=== PATIENT | male | born 1955 | race Caucasian/White ===

== ENCOUNTER 2016-07-20 08:20 | Emergency (ER) | payer BC, OTHER ==
[~2016-07-20 08:20] MED LIST: ASPI81TA4 PO; CIPR500S PO; DELZ400C PO; LISI-538 PO; METR500T10 PO; MULT1TAB9 PO; NEXI1CAP4 PO; PERCOCET PO; PRED10TA PO; SIMV20TA2 PO
[2016-07-20] MEDS ORDERED: ACETAMINOPHEN 325 MG TAB As Ordered ONE (09:00)
[2016-07-20] MEDS ORDERED: IPRATROPIUM 0.5MG/ALBUTEROL 2.5MG INH SOL UD 3ML (DUONEB)(J7620) As Ordered ONE ×2 (09:03→11:17)
[2016-07-20 09:10] LABS: BASO % 0.4 % (0.0-1.0); EOS % 0.6 % (0.0-3.0); LARGE UNSTAINED CELL # 0.1 K/mm3 (0.0-0.4); LARGE UNSTAINED CELL % 1.3 % (0.0-4.0); LYMPH # 0.4 K/mm3 (1.5-4.5); LYMPH % 4.8 % (24.0-44.0); MEAN CORPUSCULAR HEMOGLOBIN 32.1 pg (27.0-33.0); MEAN CORPUSCULAR VOLUME 91.7 fl (80.0-96.0); MONO # 0.5 K/mm3 (0.0-0.8); MONO % 5.4 % (0.0-5.0); NEUTROPHILS # 7.4 K/mm3 (1.8-7.7); NEUTROPHILS % 87.5 % (36.0-66.0); PLATELET COUNT, AUTOMATED 216 k/mm3 (150-450); RED CELL DISTRIBUTION WIDTH 12.1 % (11.5-14.5); WHITE BLOOD COUNT 8.4 K/mm3 (4.0-10.0)
[2016-07-20 09:33] LABS: ANION GAP 11 MEQ/L (8-16); BLOOD UREA NITROGEN 10 MG/DL (7-18); CALCIUM LEVEL 8.7 MG/DL (8.8-10.2); CARBON DIOXIDE LEVEL 28 MEQ/L (21-32); CHLORIDE LEVEL 97 MEQ/L (98-107); CREATININE FOR GFR 1.17 MG/DL (0.70-1.30); GLOMERULAR FILTRATION RATE > 60.0 (>49); GLUCOSE, FASTING 123 MG/DL (80-110); SODIUM LEVEL 136 MEQ/L (136-145)
[2016-07-20] MEDS ORDERED: LevoFLOXacin/DEXTROSE 750 MG/150 ML BAG (J1956) As Ordered ONE (12:57)
--- NOTE | 2016-07-20 14:37 | EDDOCDS ---
Physician Documentation [facility] Name: Jaren Ybarra Age: 60 yrs Sex: Male : 1955 Arrival Date: 07/20/2016 Time: 08:20 Bed 1 Private MD: Jair Partida M.D. Disposition: 07/20/16 13:44 Discharged to Home/Self Care. Impression: Pneumonia due to other specified bacteria. - Condition is Stable. - Discharge Instructions: Pneumonia, Adult, Pneumonia, Adult, [id number], How to Use a Nebulizer. - Prescriptions for Levaquin 750 mg Oral Tablet - take 1 tablet by ORAL route once daily for 10 days; 10 tablet. Albuterol Sulfate 2.5 mg /3 mL (0.083 %) Inhalation Solution for Nebulization - inhale 1 unit by NEBULIZATION route 4 times per day As needed; 1 box. Home Nebulizer - Dx: (pneumonia). Duration: (3 months). Albuterol Sulfate 90 mcg/actuation Inhalation HFA Aerosol Inhaler - inhale 2 puff by INHALATION route every 4 hours As needed; 1 Inhaler. - Medication Reconciliation, Local Pharmacy Hours form. - Follow up: Jair Partida; When: Tomorrow. - Problem is new. - Symptoms have improved. Historical: - Allergies: no known allergies; - Home Meds: 1. lisinopril 40 mg Oral tab 1 tab once daily 2. Nexium 40 mg Oral cpDR 80 mg in am 40mg in pm - PMHx: Hypertension; GERD; - PSHx: Prostatectomy; left shoulder repair; - Social history: Smoking status: Patient states was never smoker of tobacco. No barriers to communication noted, The patient speaks fluent Lao, Speaks appropriately for age. - Family history: Not pertinent. - : The pt / caregiver states he / she is not on anticoagulants. Home medication list is obtained from the patient. - Exposure Risk Screening:: None identified. Vital Signs: 07/20 08:31 BP 145 / 86; Pulse 110; Resp 20; Temp 101.4; Pulse Ox 97% on R/A; Weight 92.53 kg / bcj 203.99 lbs; Height 5 ft. 11 in. (180.34 cm); Pain 6/10; 09:00 BP 156 / 79 (auto/); js13 09:00 Pulse 87 MON; Resp 18; Pulse Ox 96% on R/A; js13 09:15 BP 153 / 85 (auto/); js13 09:15 Pulse 82; Resp 18; Pulse Ox 100% on R/A; js13 09:30 BP 162 / 84 (auto/); js13 09:30 Pulse 89 MON; Resp 18; Pulse Ox 97% on 4 lpm NC; js13 09:45 BP 151 / 81 (auto/); js13 09:45 Pulse 98 MON; Resp 18; Pulse Ox 97% on 4 lpm NC; js13 10:00 BP 155 / 84 (auto/); js13 10:00 Pulse 96 MON; Resp 14; Pulse Ox 97% on 4 lpm NC; js13 10:15 BP 148 / 79 (auto/); js13 10:15 Pulse 95 MON; Resp 18; Pulse Ox 95% on 4 lpm NC; js13 10:30 BP 147 / 81 (auto/); js13 10:30 Pulse 92 MON; Resp 18; Pulse Ox 95% on 4 lpm NC; js13 10:45 BP 144 / 81 (auto/); js13 10:45 Pulse 90 MON; Resp 18; Pulse Ox 97% on 4 lpm NC; js13 11:00 BP 153 / 76 (auto/); js13 11:00 Pulse 87 MON; Resp 18; Pulse Ox 91% on 4 lpm NC; js13 11:15 BP 146 / 77 (auto/); js13 11:15 Pulse 87 MON; Resp 14; Temp 99.3(O); Pulse Ox 95% on 4 lpm NC; 13 11:22 Temp 99.3(O); Pain 0/10; js13 11:30 BP 138 / 75 (auto/); js13 11:30 Pulse 94 MON; Resp 18; Pulse Ox 95% on 4 lpm NC; js13 11:45 BP 152 / 87 (auto/); js13 11:45 Pulse 93 MON; Resp 18; Pulse Ox 93% on 4 lpm NC; js13 12:00 BP 160 / 87 (auto/); js13 12:00 Pulse 93 MON; Resp 18; Pulse Ox 93% on 4 lpm NC; js13 12:15 BP 161 / 84 (auto/); js13 12:15 Pulse 95 MON; Resp 18; Pulse Ox 94% on R/A; js13 12:30 BP 146 / 74 (auto/); js13 12:30 Pulse 89 MON; Resp 18; Pulse Ox 96% on R/A; js13 12:45 BP 144 / 72 (auto/); js13 12:45 Pulse 99; Resp 18; Pulse Ox 93% on R/A; js13 13:00 BP 138 / 72 (auto/); js13 13:00 Pulse 87 MON; Resp 18; Pulse Ox 94% on R/A; js13 13:15 BP 142 / 77 (auto/); js13 13:15 Pulse 83 MON; Resp 18; Pulse Ox 93% on R/A; js13 13:30 BP 155 / 85 (auto/); js13 13:30 Pulse 89 MON; Resp 18; Pulse Ox 96% on R/A; js13 13:45 BP 146 / 79 (auto/); js13 13:45 Pulse 87 MON; Resp 18; Temp 98.7(O); Pulse Ox 94% on R/A; js13 14:00 BP 156 / 83 (auto/); js13 14:00 Pulse 87 MON; Resp 18; Pulse Ox 97% on R/A; js13 14:15 BP 163 / 87 (auto/); js13 14:15 Pulse 90 MON; Resp 18; Pulse Ox 98% on R/A; js13 14:30 BP 163 / 93 (auto/); js13 14:30 Pulse 85 MON; Resp 18; Temp 98.2(O); Pulse Ox 98% on R/A; Pain 0/10; js13 08:31 Body Mass Index 28.45 (92.53 kg, 180.34 cm) [facility] MDM: 08:41 -Blood Culture (Adults Only), peripheral from different site, or from device/port/PICC sd1 etc. if present ordered. 08:41 Business Support Associate/Pulse Ox/q 15 min VS ordered. sd1 08:41 IV Saline Lock ordered. sd1 08:41 Oxygen at 4L/Min NC or Home dosage ordered. sd1 08:41 Rhythm Strip to chart ordered. sd1 08:42 Acetaminophen Tablet 975 mg PO once ordered. sd1 08:42 B-Type Natiuretic Peptide Ordered. EDMS 08:42 Basic Metabolic Profile Ordered. EDMS 08:42 CBC with Diff Ordered. EDMS 08:42 Cardiac Injury Profile Ordered. EDMS 08:42 Troponin Ordered. EDMS 08:42 Lactic Acid (Sims tube on ice) Ordered. EDMS 08:42 -Blood Culture Ordered. EDMS 08:42 Chest, 1 View Ordered. EDMS 08:43 ECG WITH READING ER PHYS+CARDIAG ordered. EDMS 08:43 -Influenza A&B Rapid Antigen - Nose Ordered. EDMS 08:45 -Blood Culture (Adults Only), peripheral from different site, or from device/port/PICC lbd etc. if present complete. 08:47 BLOOD CULTURES Ordered. EDMS 08:53 Albuterol-Ipratropium 3 ml Inhalation once ordered. sd1 09:13 CBC with Diff Reviewed. sd1 09:29 -Influenza A&B Rapid Antigen - Nose Reviewed. sd1 09:45 Financial registration complete. mm15 10:04 [facility] Payment Agreement was scanned into [employer] and attached to record. mm15 10:31 Basic Metabolic Profile Reviewed. sd1 10:31 B-Type Natiuretic Peptide Reviewed. sd1 10:31 Cardiac Injury Profile Reviewed. sd1 10:31 Troponin Reviewed. sd1 10:31 Lactic Acid (Sims tube on ice) Reviewed. sd1 11:11 Albuterol-Ipratropium 3 ml Inhalation once ordered. sd1 11:18 Sputum Culture & Gram Stain Ordered. EDMS 12:41 Misc. Nursing Order ordered. sd1 12:41 levofloxacin 750 mg IVPB once over 90 mins ordered. sd1 13:30 Fluid Challenge ordered. sd1 Administered Medications: 09:03 Drug: Acetaminophen 975 mg [acetaminophen 325 mg tablet (3 tabs)] Route: PO; js13 11:22 Follow up: Temp 99.3 Oral; Pain 0/10 Adult; Response: Temperature is decreased js13 10:01 Drug: Albuterol-Ipratropium 3 ml [ipratropium-albuterol 0.5 mg-3 mg(2.5 mg base)/3 mL kt1 nebulization soln (3 mL)] Route: Inhalation; 11:34 Drug: Albuterol-Ipratropium 3 ml [ipratropium-albuterol 0.5 mg-3 mg(2.5 mg base)/3 mL kt1 nebulization soln (3 mL)] Route: Inhalation; 13:02 Drug: levofloxacin 750 mg [levofloxacin 750 mg/150 mL in 5 % dextrose intravenous js13 piggyback] Route: IVPB; Infused Over: 90 mins; Site: right antecubital; Signatures: Dispatcher [employer] Mary Pope MD MD sd1 Ernestine Finch, [facility] Estuardo Allen RN RN Brynn Johnson RN RN js13 Bhavin Razo mm15 Aline Henry kt1 The chart was reviewed and I authenticate all verbal orders and agree with the evaluation and treatment provided.Attachments: 10:04 [facility] Payment Agreement mm15 MTDD
--- NOTE | 2016-07-20 14:37 | EDDOCDS ---
Nurse's Notes [facility] Name: Jaren Ybarra Age: 60 yrs Sex: Male : 1955 Arrival Date: 07/20/2016 Time: 08:20 Bed 1 Private MD: Jair Partida M.D. Diagnosis: Pneumonia due to other specified bacteria Presentation: 07/20 08:28 Presenting complaint: Patient states: c/o SOB for last 2 days - worse today. states SOB bcj with activity. coughing up green / yellow sputum. + temp at home. aches all over. Suicide/Homicide risk assessment- the patient denies having any suicidal and/or homicidal ideations and does not present with any other emotional, behavioral or mental health complaints. Status: Patient is not a web services professional or dependent. Transition of care: patient was not received from another setting of care. 08:28 Acuity: DOLLY Level 3 [facility] 08:28 Method Of Arrival: Walkin/Carried/Asstd [facility] 08:55 Adult Sepsis Screening: The patient does not have new or worsening altered mentation. bcj Patient's respiratory rate is less than 22. Systolic blood pressure is greater than 100. Patient has a qSOFA score of 0- Negative Sepsis Screen. Triage Assessment: 08:31 General: Appears uncomfortable, Behavior is cooperative. Pain: Location: face and chest bcj Pain currently is 7 out of 10 on a pain scale. HIV screening NA for this visit Offered previously. Respiratory: Onset: The symptoms/episode began/occurred today. Historical: - Allergies: no known allergies; - Home Meds: 1. lisinopril 40 mg Oral tab 1 tab once daily 2. Nexium 40 mg Oral cpDR 80 mg in am 40mg in pm - PMHx: Hypertension; GERD; - PSHx: Prostatectomy; left shoulder repair; - Social history: Smoking status: Patient states was never smoker of tobacco. No barriers to communication noted, The patient speaks fluent Pashto, Speaks appropriately for age. - Family history: Not pertinent. - : The pt / caregiver states he / she is not on anticoagulants. Home medication list is obtained from the patient. - Exposure Risk Screening:: None identified. Screenin:00 Screening information is obtained from the patient. Fall risk: No risks identified. js13 Assistance ADL's: requires no assistance with activities of daily living. Abuse/DV Screen: The patient / caregiver reports he/she is: not in a situation that causes fear, pain or injury. Nutritional screening: No deficits noted. Advance Directives: There is no active DNR order. home support is adequate. Assessment: 09:19 General: Appears in no apparent distress, Behavior is appropriate for age, cooperative. js13 Pain: Location: head Pain currently is 7 out of 10 on a pain scale. Neurological: Level of Consciousness is awake, alert. Cardiovascular: Rhythm is sinus rhythm Chest pain is denied. Respiratory: Airway is patent Respiratory effort is even, unlabored, Respiratory pattern is regular, Breath sounds are diminished. Derm: Skin is pink, warm & dry. 10:33 General: Appears in no apparent distress, comfortable, Behavior is appropriate for age, js13 cooperative. Pain: Pain currently is 4 out of 10 on a pain scale. Neurological: Level of Consciousness is awake, alert. Cardiovascular: Rhythm is sinus rhythm Chest pain is denied. Respiratory: Airway is patent Respiratory effort is even, unlabored, Respiratory pattern is regular. Derm: Skin is pink, warm & dry. 11:19 Adult Sepsis Screening: The patient does not have new or worsening altered mentation. js13 Patient's respiratory rate is less than 22. Systolic blood pressure is greater than 100. Patient has a qSOFA score of 0- Negative Sepsis Screen. General: Appears in no apparent distress, Behavior is appropriate for age, cooperative. Pain: Denies pain. Neurological: Level of Consciousness is awake, alert. Cardiovascular: Rhythm is sinus rhythm Chest pain is denied. Respiratory: Airway is patent Respiratory effort is even, unlabored, Respiratory pattern is regular, Breath sounds are diminished. Derm: Skin is pink, warm & dry. 12:03 General: Appears in no apparent distress, comfortable, Behavior is appropriate for age, js13 cooperative. Pain: Denies pain. Neurological: Level of Consciousness is awake, alert. Cardiovascular: Rhythm is sinus rhythm Chest pain is denied. Respiratory: Airway is patent Respiratory effort is even, unlabored, Respiratory pattern is regular, symmetrical. Derm: Skin is pink, warm & dry. 12:58 General: Patient ambulated in hallway with no complaints. Patients O2 saturation was 95 js13 to 98% on RA.. 13:35 Adult Sepsis Screening: The patient does not have new or worsening altered mentation. js13 Patient's respiratory rate is less than 22. Systolic blood pressure is greater than 100. Patient has a qSOFA score of 0- Negative Sepsis Screen. General: Appears in no apparent distress, comfortable, Behavior is appropriate for age, cooperative, Patient tolerated PO fluids with no complaints.. Pain: Denies pain. Neurological: Level of Consciousness is awake, alert. Cardiovascular: Rhythm is sinus rhythm Chest pain is denied. Respiratory: Airway is patent Respiratory effort is even, unlabored, Respiratory pattern is regular, symmetrical, Breath sounds are diminished. Derm: Skin is pink, warm & dry. 14:34 General: Appears in no apparent distress, comfortable, Behavior is appropriate for age, js13 cooperative. Pain: Denies pain. Neurological: Level of Consciousness is awake, alert. Cardiovascular: Rhythm is sinus rhythm Chest pain is denied. Respiratory: Airway is patent Respiratory effort is even, unlabored, Respiratory pattern is regular, symmetrical, Breath sounds are diminished. Derm: Skin is pink, warm & dry. Vital Signs: 08:31 BP 145 / 86; Pulse 110; Resp 20; Temp 101.4; Pulse Ox 97% on R/A; Weight 92.53 kg; [facility] Height 5 ft. 11 in. (180.34 cm); Pain 6/10; 09:00 BP 156 / 79 (auto/); 13 09:00 Pulse 87 MON; Resp 18; Pulse Ox 96% on R/A; 13 09:15 BP 153 / 85 (auto/); 09:15 Pulse 82; Resp 18; Pulse Ox 100% on R/A; 13 09:30 BP 162 / 84 (auto/); 09:30 Pulse 89 MON; Resp 18; Pulse Ox 97% on 4 lpm NC; 13 09:45 BP 151 / 81 (auto/); 13 09:45 Pulse 98 MON; Resp 18; Pulse Ox 97% on 4 lpm NC; 13 10:00 BP 155 / 84 (auto/); 13 10:00 Pulse 96 MON; Resp 14; Pulse Ox 97% on 4 lpm NC; 13 10:15 BP 148 / 79 (auto/); 13 10:15 Pulse 95 MON; Resp 18; Pulse Ox 95% on 4 lpm NC; 13 10:30 BP 147 / 81 (auto/); 13 10:30 Pulse 92 MON; Resp 18; Pulse Ox 95% on 4 lpm NC; js13 10:45 BP 144 / 81 (auto/); js13 10:45 Pulse 90 MON; Resp 18; Pulse Ox 97% on 4 lpm NC; js13 11:00 BP 153 / 76 (auto/); js13 11:00 Pulse 87 MON; Resp 18; Pulse Ox 91% on 4 lpm NC; js13 11:15 BP 146 / 77 (auto/); js13 11:15 Pulse 87 MON; Resp 14; Temp 99.3(O); Pulse Ox 95% on 4 lpm NC; js13 11:22 Temp 99.3(O); Pain 0/10; js13 11:30 BP 138 / 75 (auto/); js13 11:30 Pulse 94 MON; Resp 18; Pulse Ox 95% on 4 lpm NC; js13 11:45 BP 152 / 87 (auto/); js13 11:45 Pulse 93 MON; Resp 18; Pulse Ox 93% on 4 lpm NC; js13 12:00 BP 160 / 87 (auto/); js13 12:00 Pulse 93 MON; Resp 18; Pulse Ox 93% on 4 lpm NC; js13 12:15 BP 161 / 84 (auto/); js13 12:15 Pulse 95 MON; Resp 18; Pulse Ox 94% on R/A; js13 12:30 BP 146 / 74 (auto/); js13 12:30 Pulse 89 MON; Resp 18; Pulse Ox 96% on R/A; js13 12:45 BP 144 / 72 (auto/); js13 12:45 Pulse 99; Resp 18; Pulse Ox 93% on R/A; js13 13:00 BP 138 / 72 (auto/); js13 13:00 Pulse 87 MON; Resp 18; Pulse Ox 94% on R/A; js13 13:15 BP 142 / 77 (auto/); js13 13:15 Pulse 83 MON; Resp 18; Pulse Ox 93% on R/A; js13 13:30 BP 155 / 85 (auto/); js13 13:30 Pulse 89 MON; Resp 18; Pulse Ox 96% on R/A; js13 13:45 BP 146 / 79 (auto/); js13 13:45 Pulse 87 MON; Resp 18; Temp 98.7(O); Pulse Ox 94% on R/A; js13 14:00 BP 156 / 83 (auto/); js13 14:00 Pulse 87 MON; Resp 18; Pulse Ox 97% on R/A; js13 14:15 BP 163 / 87 (auto/); js13 14:15 Pulse 90 MON; Resp 18; Pulse Ox 98% on R/A; js13 14:30 BP 163 / 93 (auto/); js13 14:30 Pulse 85 MON; Resp 18; Temp 98.2(O); Pulse Ox 98% on R/A; Pain 0/10; js13 08:31 Body Mass Index 28.45 (92.53 kg, 180.34 cm) [facility] Vitals: 08:31 Log In Time: July 20, 2016 at 08:20. [facility] ED Course: 08:22 Patient visited by Christopher Crouch Reg. pm4 08:22 Jair Partida is Private Physician. pm4 08:22 Patient moved to Waiting pm4 08:30 Triage Initiated [facility] 08:34 Patient visited by Estuardo Allen, HOLLY. bcj 08:39 Brynn Camilo,HOLLY is Primary Nurse. bcj 08:39 Patient moved to 1 bc 08:40 Mary Hermosillo MD is Attending Physician. sd1 08:43 Patient visited by Dina Sanchez. dem1 08:47 Patient visited by Mary Hermosillo MD. sd1 08:50 EKG done. (by ED staff). Reviewed by Mary Hermosillo MD. dem1 08:55 Patient visited by Estuardo Allen, HOLLY. j 09:00 Patient visited by Dina Sanchez. dem1 09:01 Patient visited by Dina Sanchez. dem1 09:01 Pt greeted and oriented to ED. Patient advised of names of staff involved in care, [facility] location of call leon, wait times and NPO status. Patient has correct armband on for positive identification. Placed in gown. Bed in low position. Side rails up X 1. mobile battery technician on. Pulse ox on. NIBP on. 09:03 BLOOD CULTURES Sent. 09:03 -Influenza A&B Rapid Antigen - Nose Sent. 09:03 Lactic Acid (Sims tube on ice) Sent. js13 09:03 -Blood Culture Sent. js13 09:03 B-Type Natiuretic Peptide Sent. js13 09:03 Basic Metabolic Profile Sent. 13 09:03 CBC with Diff Sent. 13 09:03 Cardiac Injury Profile Sent. 13 09:03 Troponin Sent. js13 09:20 Inserted saline lock: 18 gauge in right antecubital area and blood collected. The js13 patient tolerated the procedure well. No procedures done that require assistance. Labs drawn. (by ED staff). Sent per order to lab. Labs/Blood culture drawn. O2 via nasal cannula \T\ 4L/min. 09:21 Patient visited by Brynn Camilo RN. js13 09:56 Patient visited by Lilliana Kumar PCA. ct3 10:04 [facility] Payment Agreement was scanned into [employer] and attached to record. mm15 10:34 Patient visited by Brynn Camilo RN. js13 11:18 Sputum Culture & Gram Stain Sent. js13 11:22 Patient visited by Brynn Camilo RN. js13 12:00 The patient / caregiver is instructed regarding the plan of care and ED course. js13 12:05 Patient visited by Brynn Camilo RN. js13 12:48 Patient visited by Lilliana Kumar PCA. ct3 13:37 Patient visited by Brynn Camilo RN. js13 13:43 Jair Partida is Referral Physician. sd1 14:30 Discontinued IV lock intact, bleeding controlled, pressure dressing applied, No js13 redness/swelling at site. Administered Medications: 09:03 Drug: Acetaminophen 975 mg [acetaminophen 325 mg tablet (3 tabs)] Route: PO; 13 11:22 Follow up: Temp 99.3 Oral; Pain 0/10 Adult; Response: Temperature is decreased js13 10:01 Drug: Albuterol-Ipratropium 3 ml [ipratropium-albuterol 0.5 mg-3 mg(2.5 mg base)/3 mL kt1 nebulization soln (3 mL)] Route: Inhalation; 11:34 Drug: Albuterol-Ipratropium 3 ml [ipratropium-albuterol 0.5 mg-3 mg(2.5 mg base)/3 mL kt1 nebulization soln (3 mL)] Route: Inhalation; 13:02 Drug: levofloxacin 750 mg [levofloxacin 750 mg/150 mL in 5 % dextrose intravenous js13 piggyback] Route: IVPB; Infused Over: 90 mins; Site: right antecubital; RT: 10:00 Initial Med Neb Given as ordered Patient was instructed and evaluated on procedure. kt1 11:35 Subsequent Med Neb Given as ordered Patient tolerated procedure well without adverse kt1 effect. Order Results: Lab Order: B-Type Natiuretic Peptide; SPEC'M 07/20/16 08:53 Test: BRAIN NATRIURETIC PEPTIDE; Value: 40.0; Range: <100; Units: PG/ML; Status: F Lab Order: Basic Metabolic Profile; SPEC'M 07/20/16 08:53 Test: GLUCOSE, FASTING; Value: 123; Range: 80-110; Abnormal: Above high normal; Units: MG/DL; Status: F Test: BLOOD UREA NITROGEN; Value: 10; Range: 7-18; Units: MG/DL; Status: F Test: CREATININE FOR GFR; Value: 1.17; Range: 0.70-1.30; Units: MG/DL; Status: F Test: GLOMERULAR FILTRATION RATE; Value: > 60.0; Range: >49; Status: F Test: SODIUM LEVEL; Value: 136; Range: 136-145; Units: MEQ/L; Status: F Test: POTASSIUM SERUM; Value: 4.0; Range: 3.5-5.1; Units: MEQ/L; Status: F Test: CHLORIDE LEVEL; Value: 97; Range: 98-107; Abnormal: Below low normal; Units: MEQ/L; Status: F Test: CARBON DIOXIDE LEVEL; Value: 28; Range: 21-32; Units: MEQ/L; Status: F Test: ANION GAP; Value: 11; Range: 8-16; Units: MEQ/L; Status: F Test: CALCIUM LEVEL; Value: 8.7; Range: 8.8-10.2; Abnormal: Below low normal; Units: MG/DL; Status: F Test Note: ; Units are mL/min/1.73 m2 Chronic Kidney Disease Staging per NKF: Stage I & II GFR >=60 Normal to Mildly Decreased Stage III GFR 30-59 Moderately Decreased Stage IV GFR 15-29 Severely Decreased Stage V GFR <15 Very Little GFR Left ESRD GFR <15 on PAPER MILL SUPERINTENDENT Lab Order: CBC with Diff; BITA'Richard 07/20/16 08:53 Test: WHITE BLOOD COUNT; Value: 8.4; Range: 4.0-10.0; Units: K/mm3; Status: F Test: RED BLOOD COUNT; Value: 4.35; Range: 4.30-6.10; Units: M/mm3; Status: F Test: HEMOGLOBIN; Value: 13.9; Range: 14.0-18.0; Abnormal: Below low normal; Units: g/dl; Status: F Test: HEMATOCRIT; Value: 39.9; Range: 42.0-52.0; Abnormal: Below low normal; Units: %; Status: F Test: MEAN CORPUSCULAR VOLUME; Value: 91.7; Range: 80.0-96.0; Units: fl; Status: F Test: MEAN CORPUSCULAR HEMOGLOBIN; Value: 32.1; Range: 27.0-33.0; Units: pg; Status: F Test: MEAN CORPUSCULAR HGB CONC; Value: 35.0; Range: 32.0-36.5; Units: g/dl; Status: F Test: RED CELL DISTRIBUTION WIDTH; Value: 12.1; Range: 11.5-14.5; Units: %; Status: F Test: PLATELET COUNT, AUTOMATED; Value: 216; Range: 150-450; Units: k/mm3; Status: F Test: NEUTROPHILS %; Value: 87.5; Range: 36.0-66.0; Abnormal: Above high normal; Units: %; Status: F Test: LYMPH %; Value: 4.8; Range: 24.0-44.0; Abnormal: Below low normal; Units: %; Status: F Test: MONO %; Value: 5.4; Range: 0.0-5.0; Abnormal: Above high normal; Units: %; Status: F Test: EOS %; Value: 0.6; Range: 0.0-3.0; Units: %; Status: F Test: BASO %; Value: 0.4; Range: 0.0-1.0; Units: %; Status: F Test: LARGE UNSTAINED CELL %; Value: 1.3; Range: 0.0-4.0; Units: %; Status: F Test: NEUTROPHILS #; Value: 7.4; Range: 1.8-7.7; Units: K/mm3; Status: F Test: LYMPH #; Value: 0.4; Range: 1.5-4.5; Abnormal: Below low normal; Units: K/mm3; Status: F Test: MONO #; Value: 0.5; Range: 0.0-0.8; Units: K/mm3; Status: F Test: EOS #; Value: 0.0; Range: 0.0-0.50; Units: K/mm3; Status: F Test: BASO #; Value: 0.0; Range: 0.0-0.2; Units: K/mm3; Status: F Test: LARGE UNSTAINED CELL #; Value: 0.1; Range: 0.0-0.4; Units: K/mm3; Status: F Lab Order: Cardiac Injury Profile; SPEC'M 07/20/16 08:53 Test: CPK CREATINE PHOSPHOKINASE; Value: 60; Range: 39-308; Units: U/L; Status: F Test: CK-MB VALUE MASS; Value: 1.0; Range: 0.0-3.6; Units: NG/ML; Status: F Test: MB/CK RELATIVE INDEX; Value: 1.66; Range: < OR =4; Status: F Test Note: ; DIAGNOSIS CRITERIA MMB ng/ml Relative Index (RI) NON-AMI < or = 5 N/A SIMS ZONE > 5 < or = 4 AMI > 5 > 4 Lab Order: Troponin; SPEC'M 07/20/16 08:53 Test: TROPONIN I; Value: < 0.02; Range: < 0.10; Units: NG/ML; Status: F Test Note: ; Troponin I Reference Interval for Cymphonix LOCI: 99th Percentile= 0.00-0.045 ng/ml Risk Stratification: <= 0.10 ng/ml Decreased Risk for Adverse Clinical Events. 0.10-1.50 ng/ml Increased Risk for Adverse Clinical Events. Evaluation of additional criterion and/or repeat testing in 2-6 hours is suggested to rule out myocardial damage. >= 1.50 ng/ml Indicative of Myocardial Injury. Lab Order: Lactic Acid (Sims tube on ice); SPEC'M 07/20/16 08:53 Test: LACTIC ACID LEVEL, LACTATE; Value: 1.3; Range: 0.4-2.0; Units: MMOL/L; Status: F Lab Order: -Influenza A&B Rapid Antigen - Nose; SPEC'M 07/20/16 08:53 Test: INFLUENZA A RAPID SCR by ICA; Value: INFLUENZA A RESULTS NEGATIVE; Status: F Test: INFLUENZA A RAPID SCR by ICA; Value: Comments:; Status: F Test: INFLUENZA B RAPID SCR by ICA; Value: INFLUENZA B RESULTS NEGATIVE; Status: F Test Note: ; The Influenza test is a direct rapid immunoassay for the qualitative detection of Influenza viral antigen. Cell culture (Viral Culture) testing should be considered to confirm NEGATIVE results and to assist in detecting other viruses that can provide similar clinical symptoms. Please contact the lab within 24 hours ([phone] if confirmatory testing is desired. Lab Order: Sputum Culture & Gram Stain; SPEC'M 07/20/16 11:16 Test: GRAM STAIN; Value: GRAM STAIN RESULT; Status: F Test: GRAM STAIN; Value: QUALITY: GOOD; Status: F Test: GRAM STAIN; Value: MANY WBCS; Status: F Test: GRAM STAIN; Value: FEW EPITHELIAL CELLS; Status: F Test: GRAM STAIN; Value: MODERATE GRAM POSITIVE COCCI IN CHAINS; Status: F Test: GRAM STAIN; Value: FEW GRAM POSITIVE RODS; Status: F Outcome: 13:44 Discharge ordered by Provider. sd1 13:50 Discharge Assessment: Patient awake, alert and oriented x 3. No cognitive and/or js13 functional deficits noted. Patient verbalized understanding of disposition instructions. patient administered narcotics - no. The following High Risk Discharge criteria are identified: None. Discharged to home ambulatory, with significant other. Condition: stable. CT Study completed. Property :Personal belongings accompany Pt. 13:51 Discharge instructions given to patient, Instructed on discharge instructions, follow js13 up and referral plans. medication usage, Demonstrated understanding of instructions, medications, Pt was receptive of discharge instructions/ teaching. Prescriptions given X 4. 14:36 Patient left the ED. js13 Signatures: Mary Hermosillo MD MD sd1 Estuardo Allen, HOLLY RN Aline Conway kt1 Lilliana Kumar PCA QUARRY WORKER ct3 Dina Sanchez1 Brynn Camilo,RN RN js13 Bhavin Razo mm15 Christopher Crouch, Reg Reg pm4 Corrections: (The following items were deleted from the chart) 11:21 11:15 Pulse 87bpm; MonitorResp 14bpm; Pulse Ox 95% 4 lpm Nasal Cannula; js13 js13 MTDD
--- NOTE | 2016-07-20 14:38 | REP ---
AP portable chest 07/20/2016 Indication: Shortness of breath Comparison: PA and lateral chest 12/19/2015 Findings: Study somewhat limited by AP portable technique and lordotic positioning. Findings: Cardiomediastinal silhouette is normal. Small amount of left basilar plate-like atelectasis is identified. Lungs are otherwise clear. Bones and soft tissues within normal limits. Impression: Small amount of plate-like atelectasis is seen in the left lower lobe. Signed by Edda Guzmán MD 07/20/2016 10:11 A
--- NOTE | 2016-07-21 19:31 | ECGEPIP ---
Stationary ECG Study 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
--- NOTE | 2016-07-22 15:38 | EDDOCDS ---
Physician Documentation [facility] Name: Jaren Ybarra Age: 60 yrs Sex: Male : 1955 Arrival Date: 07/20/2016 Time: 08:20 Bed 1 Private MD: Jair Partida M.D. Disposition: 07/20/16 13:44 Discharged to Home/Self Care. Impression: Pneumonia due to other specified bacteria. - Condition is Stable. - Discharge Instructions: Pneumonia, Adult, Pneumonia, Adult, Nsic-hp-Upcd, How to Use a Nebulizer. - Prescriptions for Levaquin 750 mg Oral Tablet - take 1 tablet by ORAL route once daily for 10 days; 10 tablet. Albuterol Sulfate 2.5 mg /3 mL (0.083 %) Inhalation Solution for Nebulization - inhale 1 unit by NEBULIZATION route 4 times per day As needed; 1 box. Home Nebulizer - Dx: (pneumonia). Duration: (3 months). Albuterol Sulfate 90 mcg/actuation Inhalation HFA Aerosol Inhaler - inhale 2 puff by INHALATION route every 4 hours As needed; 1 Inhaler. - Medication Reconciliation, Local Pharmacy Hours form. - Follow up: Jair Partida; When: Tomorrow. - Problem is new. - Symptoms have improved. Historical: - Allergies: no known allergies; - Home Meds: 1. lisinopril 40 mg Oral tab 1 tab once daily 2. Nexium 40 mg Oral cpDR 80 mg in am 40mg in pm - PMHx: Hypertension; GERD; - PSHx: Prostatectomy; left shoulder repair; - Social history: Smoking status: Patient states was never smoker of tobacco. No barriers to communication noted, The patient speaks fluent Panamanian, Speaks appropriately for age. - Family history: Not pertinent. - : The pt / caregiver states he / she is not on anticoagulants. Home medication list is obtained from the patient. - Exposure Risk Screening:: None identified. Vital Signs: 07/20 08:31 BP 145 / 86; Pulse 110; Resp 20; Temp 101.4; Pulse Ox 97% on R/A; Weight 92.53 kg / bcj 203.99 lbs; Height 5 ft. 11 in. (180.34 cm); Pain 6/10; 09:00 BP 156 / 79 (auto/); js13 09:00 Pulse 87 MON; Resp 18; Pulse Ox 96% on R/A; js13 09:15 BP 153 / 85 (auto/); js13 09:15 Pulse 82; Resp 18; Pulse Ox 100% on R/A; js13 09:30 BP 162 / 84 (auto/); js13 09:30 Pulse 89 MON; Resp 18; Pulse Ox 97% on 4 lpm NC; js13 09:45 BP 151 / 81 (auto/); js13 09:45 Pulse 98 MON; Resp 18; Pulse Ox 97% on 4 lpm NC; js13 10:00 BP 155 / 84 (auto/); js13 10:00 Pulse 96 MON; Resp 14; Pulse Ox 97% on 4 lpm NC; js13 10:15 BP 148 / 79 (auto/); js13 10:15 Pulse 95 MON; Resp 18; Pulse Ox 95% on 4 lpm NC; js13 10:30 BP 147 / 81 (auto/); js13 10:30 Pulse 92 MON; Resp 18; Pulse Ox 95% on 4 lpm NC; js13 10:45 BP 144 / 81 (auto/); js13 10:45 Pulse 90 MON; Resp 18; Pulse Ox 97% on 4 lpm NC; js13 11:00 BP 153 / 76 (auto/); js13 11:00 Pulse 87 MON; Resp 18; Pulse Ox 91% on 4 lpm NC; js13 11:15 BP 146 / 77 (auto/); js13 11:15 Pulse 87 MON; Resp 14; Temp 99.3(O); Pulse Ox 95% on 4 lpm NC; 13 11:22 Temp 99.3(O); Pain 0/10; js13 11:30 BP 138 / 75 (auto/); js13 11:30 Pulse 94 MON; Resp 18; Pulse Ox 95% on 4 lpm NC; js13 11:45 BP 152 / 87 (auto/); js13 11:45 Pulse 93 MON; Resp 18; Pulse Ox 93% on 4 lpm NC; js13 12:00 BP 160 / 87 (auto/); js13 12:00 Pulse 93 MON; Resp 18; Pulse Ox 93% on 4 lpm NC; js13 12:15 BP 161 / 84 (auto/); js13 12:15 Pulse 95 MON; Resp 18; Pulse Ox 94% on R/A; js13 12:30 BP 146 / 74 (auto/); js13 12:30 Pulse 89 MON; Resp 18; Pulse Ox 96% on R/A; js13 12:45 BP 144 / 72 (auto/); js13 12:45 Pulse 99; Resp 18; Pulse Ox 93% on R/A; js13 13:00 BP 138 / 72 (auto/); js13 13:00 Pulse 87 MON; Resp 18; Pulse Ox 94% on R/A; js13 13:15 BP 142 / 77 (auto/); js13 13:15 Pulse 83 MON; Resp 18; Pulse Ox 93% on R/A; js13 13:30 BP 155 / 85 (auto/); js13 13:30 Pulse 89 MON; Resp 18; Pulse Ox 96% on R/A; js13 13:45 BP 146 / 79 (auto/); js13 13:45 Pulse 87 MON; Resp 18; Temp 98.7(O); Pulse Ox 94% on R/A; js13 14:00 BP 156 / 83 (auto/); js13 14:00 Pulse 87 MON; Resp 18; Pulse Ox 97% on R/A; js13 14:15 BP 163 / 87 (auto/); js13 14:15 Pulse 90 MON; Resp 18; Pulse Ox 98% on R/A; js13 14:30 BP 163 / 93 (auto/); js13 14:30 Pulse 85 MON; Resp 18; Temp 98.2(O); Pulse Ox 98% on R/A; Pain 0/10; js13 08:31 Body Mass Index 28.45 (92.53 kg, 180.34 cm) [facility] MDM: 08:41 -Blood Culture (Adults Only), peripheral from different site, or from device/port/PICC sd1 etc. if present ordered. 08:41 Portable Irrigation Operator/Pulse Ox/q 15 min VS ordered. sd1 08:41 IV Saline Lock ordered. sd1 08:41 Oxygen at 4L/Min NC or Home dosage ordered. sd1 08:41 Rhythm Strip to chart ordered. sd1 08:42 Acetaminophen Tablet 975 mg PO once ordered. sd1 08:42 B-Type Natiuretic Peptide Ordered. EDMS 08:42 Basic Metabolic Profile Ordered. EDMS 08:42 CBC with Diff Ordered. EDMS 08:42 Cardiac Injury Profile Ordered. EDMS 08:42 Troponin Ordered. EDMS 08:42 Lactic Acid (Sims tube on ice) Ordered. EDMS 08:42 -Blood Culture Ordered. EDMS 08:42 Chest, 1 View Ordered. EDMS 08:43 ECG WITH READING ER PHYS+CARDIAG ordered. EDMS 08:43 -Influenza A&B Rapid Antigen - Nose Ordered. EDMS 08:45 -Blood Culture (Adults Only), peripheral from different site, or from device/port/PICC lbd etc. if present complete. 08:47 BLOOD CULTURES Ordered. EDMS 08:53 Albuterol-Ipratropium 3 ml Inhalation once ordered. sd1 09:13 CBC with Diff Reviewed. sd1 09:29 -Influenza A&B Rapid Antigen - Nose Reviewed. sd1 09:45 Financial registration complete. mm15 10:04 [facility] Payment Agreement was scanned into eCert and attached to record. mm15 10:31 Basic Metabolic Profile Reviewed. sd1 10:31 B-Type Natiuretic Peptide Reviewed. sd1 10:31 Cardiac Injury Profile Reviewed. sd1 10:31 Troponin Reviewed. sd1 10:31 Lactic Acid (Sims tube on ice) Reviewed. sd1 11:11 Albuterol-Ipratropium 3 ml Inhalation once ordered. sd1 11:18 Sputum Culture & Gram Stain Ordered. EDMS 12:41 Misc. Nursing Order ordered. sd1 12:41 levofloxacin 750 mg IVPB once over 90 mins ordered. sd1 13:30 Fluid Challenge ordered. sd1 07/21 09:40 T-Sheet-- Draft Copy was scanned into eCert and attached to record. gb 09:40 ECG/EKG was scanned into eCert and attached to record. gb Administered Medications: 07/20 09:03 Drug: Acetaminophen 975 mg [acetaminophen 325 mg tablet (3 tabs)] Route: PO; js13 11:22 Follow up: Temp 99.3 Oral; Pain 0/10 Adult; Response: Temperature is decreased js13 10:01 Drug: Albuterol-Ipratropium 3 ml [ipratropium-albuterol 0.5 mg-3 mg(2.5 mg base)/3 mL kt1 nebulization soln (3 mL)] Route: Inhalation; 11:34 Drug: Albuterol-Ipratropium 3 ml [ipratropium-albuterol 0.5 mg-3 mg(2.5 mg base)/3 mL kt1 nebulization soln (3 mL)] Route: Inhalation; 13:02 Drug: levofloxacin 750 mg [levofloxacin 750 mg/150 mL in 5 % dextrose intravenous js13 piggyback] Route: IVPB; Infused Over: 90 mins; Site: right antecubital; Signatures: Dispatcher [employer] EDMS Mary Hermosillo MD MD sd1 Ernestine Finch, Mineral Technologist Unit lbd Estuardo Allen, RN RN Kadie Frye, Reg Reg Brynn Boyd,HOLLY RN js13 Bhavin Razo mm15 Aline Henry kt1 The chart was reviewed and I authenticate all verbal orders and agree with the evaluation and treatment provided.Attachments: 10:04 [facility] Payment Agreement mm15 07/21 09:40 T-Sheet-- Draft Copy gb 09:40 ECG/EKG gb Chart Complete MTDD
--- NOTE | 2016-07-22 15:38 | EDDOCDS ---
Nurse's Notes [facility] Name: Gee Kirkpatrick Age: 60 yrs Sex: Male : 1955 Arrival Date: 07/20/2016 Time: 08:20 Bed 1 Private MD: Jair Partida M.D. Diagnosis: Pneumonia due to other specified bacteria Presentation: 07/20 08:28 Presenting complaint: Patient states: c/o SOB for last 2 days - worse today. states SOB bcj with activity. coughing up green / yellow sputum. + temp at home. aches all over. Suicide/Homicide risk assessment- the patient denies having any suicidal and/or homicidal ideations and does not present with any other emotional, behavioral or mental health complaints. Status: Patient is not a pharmacy service associate or dependent. Transition of care: patient was not received from another setting of care. 08:28 Acuity: [facility] 08:28 Method Of Arrival: [facility] 08:55 Adult Sepsis Screening: The patient does not have new or worsening altered mentation. bcj Patient's respiratory rate is less than 22. Systolic blood pressure is greater than 100. Patient has a qSOFA score of 0- Negative Sepsis Screen. Triage Assessment: 08:31 General: Appears uncomfortable, Behavior is cooperative. Pain: Location: face and chest bcj Pain currently is 7 out of 10 on a pain scale. HIV screening NA for this visit Offered previously. Respiratory: Onset: The symptoms/episode began/occurred today. Historical: - Allergies: no known allergies; - Home Meds: 1. lisinopril 40 mg Oral tab 1 tab once daily 2. Nexium 40 mg Oral cpDR 80 mg in am 40mg in pm - PMHx: Hypertension; GERD; - PSHx: Prostatectomy; left shoulder repair; - Social history: Smoking status: Patient states was never smoker of tobacco. No barriers to communication noted, The patient speaks fluent [place], Speaks appropriately for age. - Family history: Not pertinent. - : The pt / caregiver states he / she is not on anticoagulants. Home medication list is obtained from the patient. - Exposure Risk Screening:: None identified. Screenin:00 Screening information is obtained from the patient. Fall risk: No risks identified. js13 Assistance ADL's: requires no assistance with activities of daily living. Abuse/DV Screen: The patient / caregiver reports he/she is: not in a situation that causes fear, pain or injury. Nutritional screening: No deficits noted. Advance Directives: There is no active DNR order. home support is adequate. Assessment: 09:19 General: Appears in no apparent distress, Behavior is appropriate for age, cooperative. js13 Pain: Location: head Pain currently is 7 out of 10 on a pain scale. Neurological: Level of Consciousness is awake, alert. Cardiovascular: Rhythm is sinus rhythm Chest pain is denied. Respiratory: Airway is patent Respiratory effort is even, unlabored, Respiratory pattern is regular, Breath sounds are diminished. Derm: Skin is pink, warm & dry. 10:33 General: Appears in no apparent distress, comfortable, Behavior is appropriate for age, js13 cooperative. Pain: Pain currently is 4 out of 10 on a pain scale. Neurological: Level of Consciousness is awake, alert. Cardiovascular: Rhythm is sinus rhythm Chest pain is denied. Respiratory: Airway is patent Respiratory effort is even, unlabored, Respiratory pattern is regular. Derm: Skin is pink, warm & dry. 11:19 Adult Sepsis Screening: The patient does not have new or worsening altered mentation. js13 Patient's respiratory rate is less than 22. Systolic blood pressure is greater than 100. Patient has a qSOFA score of 0- Negative Sepsis Screen. General: Appears in no apparent distress, Behavior is appropriate for age, cooperative. Pain: Denies pain. Neurological: Level of Consciousness is awake, alert. Cardiovascular: Rhythm is sinus rhythm Chest pain is denied. Respiratory: Airway is patent Respiratory effort is even, unlabored, Respiratory pattern is regular, Breath sounds are diminished. Derm: Skin is pink, warm & dry. 12:03 General: Appears in no apparent distress, comfortable, Behavior is appropriate for age, js13 cooperative. Pain: Denies pain. Neurological: Level of Consciousness is awake, alert. Cardiovascular: Rhythm is sinus rhythm Chest pain is denied. Respiratory: Airway is patent Respiratory effort is even, unlabored, Respiratory pattern is regular, symmetrical. Derm: Skin is pink, warm & dry. 12:58 General: Patient ambulated in hallway with no complaints. Patients O2 saturation was 95 js13 to 98% on RA.. 13:35 Adult Sepsis Screening: The patient does not have new or worsening altered mentation. js13 Patient's respiratory rate is less than 22. Systolic blood pressure is greater than 100. Patient has a qSOFA score of 0- Negative Sepsis Screen. General: Appears in no apparent distress, comfortable, Behavior is appropriate for age, cooperative, Patient tolerated PO fluids with no complaints.. Pain: Denies pain. Neurological: Level of Consciousness is awake, alert. Cardiovascular: Rhythm is sinus rhythm Chest pain is denied. Respiratory: Airway is patent Respiratory effort is even, unlabored, Respiratory pattern is regular, symmetrical, Breath sounds are diminished. Derm: Skin is pink, warm & dry. 14:34 General: Appears in no apparent distress, comfortable, Behavior is appropriate for age, js13 cooperative. Pain: Denies pain. Neurological: Level of Consciousness is awake, alert. Cardiovascular: Rhythm is sinus rhythm Chest pain is denied. Respiratory: Airway is patent Respiratory effort is even, unlabored, Respiratory pattern is regular, symmetrical, Breath sounds are diminished. Derm: Skin is pink, warm & dry. Vital Signs: 08:31 BP 145 / 86; Pulse 110; Resp 20; Temp 101.4; Pulse Ox 97% on R/A; Weight 92.53 kg; [facility] hospital Height 5 ft. 11 in. (180.34 cm); Pain 6/10; 09:00 BP 156 / 79 (auto/); 13 09:00 Pulse 87 MON; Resp 18; Pulse Ox 96% on R/A; 13 09:15 BP 153 / 85 (auto/); 09:15 Pulse 82; Resp 18; Pulse Ox 100% on R/A; 13 09:30 BP 162 / 84 (auto/); 09:30 Pulse 89 MON; Resp 18; Pulse Ox 97% on 4 lpm NC; 13 09:45 BP 151 / 81 (auto/); 13 09:45 Pulse 98 MON; Resp 18; Pulse Ox 97% on 4 lpm NC; 13 10:00 BP 155 / 84 (auto/); 13 10:00 Pulse 96 MON; Resp 14; Pulse Ox 97% on 4 lpm NC; 13 10:15 BP 148 / 79 (auto/); 13 10:15 Pulse 95 MON; Resp 18; Pulse Ox 95% on 4 lpm NC; 13 10:30 BP 147 / 81 (auto/); 13 10:30 Pulse 92 MON; Resp 18; Pulse Ox 95% on 4 lpm NC; js13 10:45 BP 144 / 81 (auto/); js13 10:45 Pulse 90 MON; Resp 18; Pulse Ox 97% on 4 lpm NC; js13 11:00 BP 153 / 76 (auto/); js13 11:00 Pulse 87 MON; Resp 18; Pulse Ox 91% on 4 lpm NC; js13 11:15 BP 146 / 77 (auto/); js13 11:15 Pulse 87 MON; Resp 14; Temp 99.3(O); Pulse Ox 95% on 4 lpm NC; js13 11:22 Temp 99.3(O); Pain 0/10; js13 11:30 BP 138 / 75 (auto/); js13 11:30 Pulse 94 MON; Resp 18; Pulse Ox 95% on 4 lpm NC; js13 11:45 BP 152 / 87 (auto/); js13 11:45 Pulse 93 MON; Resp 18; Pulse Ox 93% on 4 lpm NC; js13 12:00 BP 160 / 87 (auto/); js13 12:00 Pulse 93 MON; Resp 18; Pulse Ox 93% on 4 lpm NC; js13 12:15 BP 161 / 84 (auto/); js13 12:15 Pulse 95 MON; Resp 18; Pulse Ox 94% on R/A; js13 12:30 BP 146 / 74 (auto/); js13 12:30 Pulse 89 MON; Resp 18; Pulse Ox 96% on R/A; js13 12:45 BP 144 / 72 (auto/); js13 12:45 Pulse 99; Resp 18; Pulse Ox 93% on R/A; js13 13:00 BP 138 / 72 (auto/); js13 13:00 Pulse 87 MON; Resp 18; Pulse Ox 94% on R/A; js13 13:15 BP 142 / 77 (auto/); js13 13:15 Pulse 83 MON; Resp 18; Pulse Ox 93% on R/A; js13 13:30 BP 155 / 85 (auto/); js13 13:30 Pulse 89 MON; Resp 18; Pulse Ox 96% on R/A; js13 13:45 BP 146 / 79 (auto/); js13 13:45 Pulse 87 MON; Resp 18; Temp 98.7(O); Pulse Ox 94% on R/A; js13 14:00 BP 156 / 83 (auto/); js13 14:00 Pulse 87 MON; Resp 18; Pulse Ox 97% on R/A; js13 14:15 BP 163 / 87 (auto/); js13 14:15 Pulse 90 MON; Resp 18; Pulse Ox 98% on R/A; js13 14:30 BP 163 / 93 (auto/); js13 14:30 Pulse 85 MON; Resp 18; Temp 98.2(O); Pulse Ox 98% on R/A; Pain 0/10; js13 08:31 Body Mass Index 28.45 (92.53 kg, 180.34 cm) [facility] Vitals: 08:31 Log In Time: July 20, 2016 at 08:20. [facility] ED Course: 08:22 Patient visited by Christopher Crouch Reg. pm4 08:22 Jair Partida is Private Physician. pm4 08:22 Patient moved to Waiting pm4 08:30 Triage Initiated [facility] 08:34 Patient visited by Estuardo Allen, HOLLY. bcj 08:39 Brynn Camilo,HOLLY is Primary Nurse. bcj 08:39 Patient moved to 1 bc 08:40 Mary Hermosillo MD is Attending Physician. sd1 08:43 Patient visited by Dina Sanchez. dem1 08:47 Patient visited by Mary Hermosillo MD. sd1 08:50 EKG done. (by ED staff). Reviewed by Mary Hermosillo MD. dem1 08:55 Patient visited by Estuardo Allen, HOLLY. j 09:00 Patient visited by Dina Sanchez. dem1 09:01 Patient visited by Dina Sanchez. dem1 09:01 Pt greeted and oriented to ED. Patient advised of names of staff involved in care, [facility] location of call leon, wait times and NPO status. Patient has correct armband on for positive identification. Placed in gown. Bed in low position. Side rails up X 1. personnel monitor on. Pulse ox on. NIBP on. 09:03 BLOOD CULTURES Sent. 09:03 -Influenza A&B Rapid Antigen - Nose Sent. 09:03 Lactic Acid (Sims tube on ice) Sent. js13 09:03 -Blood Culture Sent. js13 09:03 B-Type Natiuretic Peptide Sent. js13 09:03 Basic Metabolic Profile Sent. js13 09:03 CBC with Diff Sent. js13 09:03 Cardiac Injury Profile Sent. js13 09:03 Troponin Sent. js13 09:20 Inserted saline lock: 18 gauge in right antecubital area and blood collected. The js13 patient tolerated the procedure well. No procedures done that require assistance. Labs drawn. (by ED staff). Sent per order to lab. Labs/Blood culture drawn. O2 via nasal cannula \T\ 4L/min. 09:21 Patient visited by Brynn Camilo RN. js13 09:56 Patient visited by Lilliana Kumar PCA. ct3 10:04 [facility] Payment Agreement was scanned into [employer] and attached to record. mm15 10:34 Patient visited by Brynn Camilo RN. js13 11:18 Sputum Culture & Gram Stain Sent. js13 11:22 Patient visited by Brynn Camilo RN. js13 12:00 The patient / caregiver is instructed regarding the plan of care and ED course. js13 12:05 Patient visited by Brynn Camilo RN. js13 12:48 Patient visited by Lilliana Kumar PCA. ct3 13:37 Patient visited by Brynn Camilo RN. js13 13:43 Jair Partida is Referral Physician. sd1 14:30 Discontinued IV lock intact, bleeding controlled, pressure dressing applied, No js13 redness/swelling at site. 15:07 Chest, 1 View Returned. EDMS 07/21 09:40 T-Sheet-- Draft Copy was scanned into [employer] and attached to record. gb 09:40 ECG/EKG was scanned into [employer] and attached to record. gb 20:04 EKG-ADULT Returned. EDMS Administered Medications: 07/20 09:03 Drug: Acetaminophen 975 mg [acetaminophen 325 mg tablet (3 tabs)] Route: PO; js13 11:22 Follow up: Temp 99.3 Oral; Pain 0/10 Adult; Response: Temperature is decreased js13 10:01 Drug: Albuterol-Ipratropium 3 ml [ipratropium-albuterol 0.5 mg-3 mg(2.5 mg base)/3 mL kt1 nebulization soln (3 mL)] Route: Inhalation; 11:34 Drug: Albuterol-Ipratropium 3 ml [ipratropium-albuterol 0.5 mg-3 mg(2.5 mg base)/3 mL kt1 nebulization soln (3 mL)] Route: Inhalation; 13:02 Drug: levofloxacin 750 mg [levofloxacin 750 mg/150 mL in 5 % dextrose intravenous js13 piggyback] Route: IVPB; Infused Over: 90 mins; Site: right antecubital; RT: 10:00 Initial Med Neb Given as ordered Patient was instructed and evaluated on procedure. kt1 11:35 Subsequent Med Neb Given as ordered Patient tolerated procedure well without adverse kt1 effect. Order Results: Lab Order: -Blood Culture; SPEC'M 07/20/16 08:53 Test: BLOOD CULTURE; Value: No growth after 24 hours . All specimens observed; Status: F Test: BLOOD CULTURE; Value: for 5 days. Results final at that time.; Status: F Test: BLOOD CULTURE; Value: No Growth after 48 hours. All Specimens observed; Status: F Test: BLOOD CULTURE; Value: for 7 days. Results final at that time.; Status: F Lab Order: B-Type Natiuretic Peptide; SPEC'M 07/20/16 08:53 Test: BRAIN NATRIURETIC PEPTIDE; Value: 40.0; Range: <100; Units: PG/ML; Status: F Lab Order: Basic Metabolic Profile; SPEC'M 07/20/16 08:53 Test: GLUCOSE, FASTING; Value: 123; Range: 80-110; Abnormal: Above high normal; Units: MG/DL; Status: F Test: BLOOD UREA NITROGEN; Value: 10; Range: 7-18; Units: MG/DL; Status: F Test: CREATININE FOR GFR; Value: 1.17; Range: 0.70-1.30; Units: MG/DL; Status: F Test: GLOMERULAR FILTRATION RATE; Value: > 60.0; Range: >49; Status: F Test: SODIUM LEVEL; Value: 136; Range: 136-145; Units: MEQ/L; Status: F Test: POTASSIUM SERUM; Value: 4.0; Range: 3.5-5.1; Units: MEQ/L; Status: F Test: CHLORIDE LEVEL; Value: 97; Range: 98-107; Abnormal: Below low normal; Units: MEQ/L; Status: F Test: CARBON DIOXIDE LEVEL; Value: 28; Range: 21-32; Units: MEQ/L; Status: F Test: ANION GAP; Value: 11; Range: 8-16; Units: MEQ/L; Status: F Test: CALCIUM LEVEL; Value: 8.7; Range: 8.8-10.2; Abnormal: Below low normal; Units: MG/DL; Status: F Test Note: ; Units are mL/min/1.73 m2 Chronic Kidney Disease Staging per NKF: Stage I & II GFR >=60 Normal to Mildly Decreased Stage III GFR 30-59 Moderately Decreased Stage IV GFR 15-29 Severely Decreased Stage V GFR <15 Very Little GFR Left ESRD GFR <15 on AURICULAR THERAPIST Lab Order: CBC with Diff; SPEC'M 07/20/16 08:53 Test: WHITE BLOOD COUNT; Value: 8.4; Range: 4.0-10.0; Units: K/mm3; Status: F Test: RED BLOOD COUNT; Value: 4.35; Range: 4.30-6.10; Units: M/mm3; Status: F Test: HEMOGLOBIN; Value: 13.9; Range: 14.0-18.0; Abnormal: Below low normal; Units: g/dl; Status: F Test: HEMATOCRIT; Value: 39.9; Range: 42.0-52.0; Abnormal: Below low normal; Units: %; Status: F Test: MEAN CORPUSCULAR VOLUME; Value: 91.7; Range: 80.0-96.0; Units: fl; Status: F Test: MEAN CORPUSCULAR HEMOGLOBIN; Value: 32.1; Range: 27.0-33.0; Units: pg; Status: F Test: MEAN CORPUSCULAR HGB CONC; Value: 35.0; Range: 32.0-36.5; Units: g/dl; Status: F Test: RED CELL DISTRIBUTION WIDTH; Value: 12.1; Range: 11.5-14.5; Units: %; Status: F Test: PLATELET COUNT, AUTOMATED; Value: 216; Range: 150-450; Units: k/mm3; Status: F Test: NEUTROPHILS %; Value: 87.5; Range: 36.0-66.0; Abnormal: Above high normal; Units: %; Status: F Test: LYMPH %; Value: 4.8; Range: 24.0-44.0; Abnormal: Below low normal; Units: %; Status: F Test: MONO %; Value: 5.4; Range: 0.0-5.0; Abnormal: Above high normal; Units: %; Status: F Test: EOS %; Value: 0.6; Range: 0.0-3.0; Units: %; Status: F Test: BASO %; Value: 0.4; Range: 0.0-1.0; Units: %; Status: F Test: LARGE UNSTAINED CELL %; Value: 1.3; Range: 0.0-4.0; Units: %; Status: F Test: NEUTROPHILS #; Value: 7.4; Range: 1.8-7.7; Units: K/mm3; Status: F Test: LYMPH #; Value: 0.4; Range: 1.5-4.5; Abnormal: Below low normal; Units: K/mm3; Status: F Test: MONO #; Value: 0.5; Range: 0.0-0.8; Units: K/mm3; Status: F Test: EOS #; Value: 0.0; Range: 0.0-0.50; Units: K/mm3; Status: F Test: BASO #; Value: 0.0; Range: 0.0-0.2; Units: K/mm3; Status: F Test: LARGE UNSTAINED CELL #; Value: 0.1; Range: 0.0-0.4; Units: K/mm3; Status: F Lab Order: Cardiac Injury Profile; SPEC'M 07/20/16 08:53 Test: CPK CREATINE PHOSPHOKINASE; Value: 60; Range: 39-308; Units: U/L; Status: F Test: CK-MB VALUE MASS; Value: 1.0; Range: 0.0-3.6; Units: NG/ML; Status: F Test: MB/CK RELATIVE INDEX; Value: 1.66; Range: < OR =4; Status: F Test Note: ; DIAGNOSIS CRITERIA MMB ng/ml Relative Index (RI) NON-AMI < or = 5 N/A SIMS ZONE > 5 < or = 4 AMI > 5 > 4 Lab Order: Troponin; SPEC'M 07/20/16 08:53 Test: TROPONIN I; Value: < 0.02; Range: < 0.10; Units: NG/ML; Status: F Test Note: ; Troponin I Reference Interval for [employer] LOCI: 99th Percentile= 0.00-0.045 ng/ml Risk Stratification: <= 0.10 ng/ml Decreased Risk for Adverse Clinical Events. 0.10-1.50 ng/ml Increased Risk for Adverse Clinical Events. Evaluation of additional criterion and/or repeat testing in 2-6 hours is suggested to rule out myocardial damage. >= 1.50 ng/ml Indicative of Myocardial Injury. Lab Order: Lactic Acid (Sims tube on ice); SPEC'M 07/20/16 08:53 Test: LACTIC ACID LEVEL, LACTATE; Value: 1.3; Range: 0.4-2.0; Units: MMOL/L; Status: F Lab Order: -Influenza A&B Rapid Antigen - Nose; SPEC'M 07/20/16 08:53 Test: INFLUENZA A RAPID SCR by ICA; Value: INFLUENZA A RESULTS NEGATIVE; Status: F Test: INFLUENZA A RAPID SCR by ICA; Value: Comments:; Status: F Test: INFLUENZA B RAPID SCR by ICA; Value: INFLUENZA B RESULTS NEGATIVE; Status: F Test Note: ; The Influenza test is a direct rapid immunoassay for the qualitative detection of Influenza viral antigen. Cell culture (Viral Culture) testing should be considered to confirm NEGATIVE results and to assist in detecting other viruses that can provide similar clinical symptoms. Please contact the lab within 24 hours ([phone] if confirmatory testing is desired. Lab Order: BLOOD CULTURES; SPEC'M 07/20/16 08:53 Test: BLOOD CULTURE; Value: No growth after 24 hours . All specimens observed; Status: F Test: BLOOD CULTURE; Value: for 5 days. Results final at that time.; Status: F Test: BLOOD CULTURE; Value: No Growth after 48 hours. All Specimens observed; Status: F Test: BLOOD CULTURE; Value: for 7 days. Results final at that time.; Status: F Lab Order: Sputum Culture & Gram Stain; SPEC'M 07/20/16 11:16 Test: GRAM STAIN; Value: GRAM STAIN RESULT; Status: F Test: GRAM STAIN; Value: QUALITY: GOOD; Status: F Test: GRAM STAIN; Value: MANY WBCS; Status: F Test: GRAM STAIN; Value: FEW EPITHELIAL CELLS; Status: F Test: GRAM STAIN; Value: MODERATE GRAM POSITIVE COCCI IN CHAINS; Status: F Test: GRAM STAIN; Value: FEW GRAM POSITIVE RODS; Status: F Test: SPUTUM CULTURE; Value: NG/PUJA RESULTS NORMAL PUJA PRESENT; Status: F Test: SPUTUM CULTURE; Value: ORGANISM 1: ORGANISM PART OF NORMAL PUJA; Status: F Test: SPUTUM CULTURE; Value: ORGANISM PART OF NORMAL PUJA; Status: F Test: SPUTUM CULTURE; Value: QUANTITY OF GROWTH HEAVY; Status: F Radiology Order: Chest, 1 View Test: Chest, 1 View REASON FOR EXAMINATION: Shortness of Breath; AP portable chest 07/20/2016; ; Indication: Shortness of breath; ; Comparison: PA and lateral chest 12/19/2015; ; Findings: Study somewhat limited by AP portable technique and lordotic; positioning.; ; Findings: Cardiomediastinal silhouette is normal. Small amount of left basilar; plate-like atelectasis is identified. 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 sd1 13:50 Discharge Assessment: Patient awake, alert and oriented x 3. No cognitive and/or js13 functional deficits noted. Patient verbalized understanding of disposition instructions. patient administered narcotics - no. The following High Risk Discharge criteria are identified: None. Discharged to home ambulatory, with significant other. Condition: stable. CT Study completed. Property :Personal belongings accompany Pt. 13:51 Discharge instructions given to patient, Instructed on discharge instructions, follow js13 up and referral plans. medication usage, Demonstrated understanding of instructions, medications, Pt was receptive of discharge instructions/ teaching. Prescriptions given X 4. 14:36 Patient left the ED. js13 Signatures: Dispatcher [employer] EDMS Mary Hermosillo MD MD sd1 Estuardo Allen, RN RN Kadie Frye, Reg Reg gb Aline Henry kt1 Lilliana Kumar, WET PAN MIXER WET PAN MIXER ct3 Dina Sanchez dem1 Brynn Camilo,HOLLY RN js13 Bhavin Razo mm15 Christopher Crouch, Reg Reg pm4 Corrections: (The following items were deleted from the chart) 11:21 11:15 Pulse 87bpm; MonitorResp 14bpm; Pulse Ox 95% 4 lpm Nasal Cannula; js13 js13 Chart Complete MTDD
--- NOTE | 2016-07-22 15:38 | EDDOCDS ---
Physician Documentation [facility] Name: Jaren Ybarra Age: 60 yrs Sex: Male : 1955 Arrival Date: 07/20/2016 Time: 08:20 Bed 1 Private MD: Jair Partida M.D. Disposition: 07/20/16 13:44 Discharged to Home/Self Care. Impression: Pneumonia due to other specified bacteria. - Condition is Stable. - Discharge Instructions: Pneumonia, Adult, Pneumonia, Adult, [id number], How to Use a Nebulizer. - Prescriptions for Levaquin 750 mg Oral Tablet - take 1 tablet by ORAL route once daily for 10 days; 10 tablet. Albuterol Sulfate 2.5 mg /3 mL (0.083 %) Inhalation Solution for Nebulization - inhale 1 unit by NEBULIZATION route 4 times per day As needed; 1 box. Home Nebulizer - Dx: (pneumonia). Duration: (3 months). Albuterol Sulfate 90 mcg/actuation Inhalation HFA Aerosol Inhaler - inhale 2 puff by INHALATION route every 4 hours As needed; 1 Inhaler. - Medication Reconciliation, Local Pharmacy Hours form. - Follow up: Jair Partida; When: Tomorrow. - Problem is new. - Symptoms have improved. Historical: - Allergies: no known allergies; - Home Meds: 1. lisinopril 40 mg Oral tab 1 tab once daily 2. Nexium 40 mg Oral cpDR 80 mg in am 40mg in pm - PMHx: Hypertension; GERD; - PSHx: Prostatectomy; left shoulder repair; - Social history: Smoking status: Patient states was never smoker of tobacco. No barriers to communication noted, The patient speaks fluent Bhut[place], Speaks appropriately for age. - Family history: Not pertinent. - : The pt / caregiver states he / she is not on anticoagulants. Home medication list is obtained from the patient. - Exposure Risk Screening:: None identified. Vital Signs: 07/20 08:31 BP 145 / 86; Pulse 110; Resp 20; Temp 101.4; Pulse Ox 97% on R/A; Weight 92.53 kg / bcj 203.99 lbs; Height 5 ft. 11 in. (180.34 cm); Pain 6/10; 09:00 BP 156 / 79 (auto/); js13 09:00 Pulse 87 MON; Resp 18; Pulse Ox 96% on R/A; js13 09:15 BP 153 / 85 (auto/); js13 09:15 Pulse 82; Resp 18; Pulse Ox 100% on R/A; js13 09:30 BP 162 / 84 (auto/); js13 09:30 Pulse 89 MON; Resp 18; Pulse Ox 97% on 4 lpm NC; js13 09:45 BP 151 / 81 (auto/); js13 09:45 Pulse 98 MON; Resp 18; Pulse Ox 97% on 4 lpm NC; js13 10:00 BP 155 / 84 (auto/); js13 10:00 Pulse 96 MON; Resp 14; Pulse Ox 97% on 4 lpm NC; js13 10:15 BP 148 / 79 (auto/); js13 10:15 Pulse 95 MON; Resp 18; Pulse Ox 95% on 4 lpm NC; js13 10:30 BP 147 / 81 (auto/); js13 10:30 Pulse 92 MON; Resp 18; Pulse Ox 95% on 4 lpm NC; js13 10:45 BP 144 / 81 (auto/); js13 10:45 Pulse 90 MON; Resp 18; Pulse Ox 97% on 4 lpm NC; js13 11:00 BP 153 / 76 (auto/); js13 11:00 Pulse 87 MON; Resp 18; Pulse Ox 91% on 4 lpm NC; js13 11:15 BP 146 / 77 (auto/); js13 11:15 Pulse 87 MON; Resp 14; Temp 99.3(O); Pulse Ox 95% on 4 lpm NC; 13 11:22 Temp 99.3(O); Pain 0/10; js13 11:30 BP 138 / 75 (auto/); js13 11:30 Pulse 94 MON; Resp 18; Pulse Ox 95% on 4 lpm NC; js13 11:45 BP 152 / 87 (auto/); js13 11:45 Pulse 93 MON; Resp 18; Pulse Ox 93% on 4 lpm NC; js13 12:00 BP 160 / 87 (auto/); js13 12:00 Pulse 93 MON; Resp 18; Pulse Ox 93% on 4 lpm NC; js13 12:15 BP 161 / 84 (auto/); js13 12:15 Pulse 95 MON; Resp 18; Pulse Ox 94% on R/A; js13 12:30 BP 146 / 74 (auto/); js13 12:30 Pulse 89 MON; Resp 18; Pulse Ox 96% on R/A; js13 12:45 BP 144 / 72 (auto/); js13 12:45 Pulse 99; Resp 18; Pulse Ox 93% on R/A; js13 13:00 BP 138 / 72 (auto/); js13 13:00 Pulse 87 MON; Resp 18; Pulse Ox 94% on R/A; js13 13:15 BP 142 / 77 (auto/); js13 13:15 Pulse 83 MON; Resp 18; Pulse Ox 93% on R/A; js13 13:30 BP 155 / 85 (auto/); js13 13:30 Pulse 89 MON; Resp 18; Pulse Ox 96% on R/A; js13 13:45 BP 146 / 79 (auto/); js13 13:45 Pulse 87 MON; Resp 18; Temp 98.7(O); Pulse Ox 94% on R/A; js13 14:00 BP 156 / 83 (auto/); js13 14:00 Pulse 87 MON; Resp 18; Pulse Ox 97% on R/A; js13 14:15 BP 163 / 87 (auto/); js13 14:15 Pulse 90 MON; Resp 18; Pulse Ox 98% on R/A; js13 14:30 BP 163 / 93 (auto/); js13 14:30 Pulse 85 MON; Resp 18; Temp 98.2(O); Pulse Ox 98% on R/A; Pain 0/10; js13 08:31 Body Mass Index 28.45 (92.53 kg, 180.34 cm) [facility] MDM: 08:41 -Blood Culture (Adults Only), peripheral from different site, or from device/port/PICC sd1 etc. if present ordered. 08:41 Lactation Nurse/Pulse Ox/q 15 min VS ordered. sd1 08:41 IV Saline Lock ordered. sd1 08:41 Oxygen at 4L/Min NC or Home dosage ordered. sd1 08:41 Rhythm Strip to chart ordered. sd1 08:42 Acetaminophen Tablet 975 mg PO once ordered. sd1 08:42 B-Type Natiuretic Peptide Ordered. EDMS 08:42 Basic Metabolic Profile Ordered. EDMS 08:42 CBC with Diff Ordered. EDMS 08:42 Cardiac Injury Profile Ordered. EDMS 08:42 Troponin Ordered. EDMS 08:42 Lactic Acid (Sims tube on ice) Ordered. EDMS 08:42 -Blood Culture Ordered. EDMS 08:42 Chest, 1 View Ordered. EDMS 08:43 ECG WITH READING ER PHYS+CARDIAG ordered. EDMS 08:43 -Influenza A&B Rapid Antigen - Nose Ordered. EDMS 08:45 -Blood Culture (Adults Only), peripheral from different site, or from device/port/PICC lbd etc. if present complete. 08:47 BLOOD CULTURES Ordered. EDMS 08:53 Albuterol-Ipratropium 3 ml Inhalation once ordered. sd1 09:13 CBC with Diff Reviewed. sd1 09:29 -Influenza A&B Rapid Antigen - Nose Reviewed. sd1 09:45 Financial registration complete. mm15 10:04 ON LICENSE OF [facility] Payment Agreement was scanned into [employer]arly and attached to record. mm15 10:31 Basic Metabolic Profile Reviewed. sd1 10:31 B-Type Natiuretic Peptide Reviewed. sd1 10:31 Cardiac Injury Profile Reviewed. sd1 10:31 Troponin Reviewed. sd1 10:31 Lactic Acid (Sims tube on ice) Reviewed. sd1 11:11 Albuterol-Ipratropium 3 ml Inhalation once ordered. sd1 11:18 Sputum Culture & Gram Stain Ordered. EDMS 12:41 Misc. Nursing Order ordered. sd1 12:41 levofloxacin 750 mg IVPB once over 90 mins ordered. sd1 13:30 Fluid Challenge ordered. sd1 07/21 09:40 T-Sheet-- Draft Copy was scanned into [employer] and attached to record. gb 09:40 ECG/EKG was scanned into [employer] and attached to record. gb Administered Medications: 07/20 09:03 Drug: Acetaminophen 975 mg [acetaminophen 325 mg tablet (3 tabs)] Route: PO; js13 11:22 Follow up: Temp 99.3 Oral; Pain 0/10 Adult; Response: Temperature is decreased js13 10:01 Drug: Albuterol-Ipratropium 3 ml [ipratropium-albuterol 0.5 mg-3 mg(2.5 mg base)/3 mL kt1 nebulization soln (3 mL)] Route: Inhalation; 11:34 Drug: Albuterol-Ipratropium 3 ml [ipratropium-albuterol 0.5 mg-3 mg(2.5 mg base)/3 mL kt1 nebulization soln (3 mL)] Route: Inhalation; 13:02 Drug: levofloxacin 750 mg [levofloxacin 750 mg/150 mL in 5 % dextrose intravenous js13 piggyback] Route: IVPB; Infused Over: 90 mins; Site: right antecubital; Signatures: Dispatcher [employer] EDMS Mary Hermosillo MD MD sd1 Ernestine Finch, Solar Crew Member Unit lbd Estuardo Allen, RN RN Kadie Frye, Reg Reg Brynn Boyd,HOLLY RN js13 Bhavin Razo mm15 Aline Henry kt1 The chart was reviewed and I authenticate all verbal orders and agree with the evaluation and treatment provided.Attachments: 10:04 ON LICENSE OF [facility] Payment Agreement mm15 07/21 09:40 T-Sheet-- Draft Copy gb 09:40 ECG/EKG gb Chart Complete MTDD
== END 2016-07-20 14:36 | disposition home or self-care (01) ==
LOC: M ED 08:20
DX: J18.9 Pneumonia, unspecified organism (principal); I10 Essential (primary) hypertension; K21.9 Gastro-esophageal reflux disease without esophagitis; Z79.899 Other long term (current) drug therapy
CPT/HCPCS: 36415; 71010; 80048; 82550; 82553; 83605; 83880; 85025; 87040; 87070; 87205; 87804; 93005; 93041; 94640; 96374; 99285; J1956

== ENCOUNTER → 2016-09-13 | Outpatient (REF) | payer BC, OTHER | LOC: M LAB REF 16:17 | PROVIDERS: ATTEND Physician Assistant Medical | DX: J32.0 Chronic maxillary sinusitis (principal) ==

== ENCOUNTER → 2016-09-29 | Outpatient (CLI) | payer BC, OTHER ==
[2016-09-29 18:23] LABS: BASO % 0.3 % (0.0-1.0); EOS # 0.4 K/mm3 (0.0-0.50); LYMPH # 1.9 K/mm3 (1.5-4.5); MEAN CORPUSCULAR HEMOGLOBIN 32.7 pg (27.0-33.0); MEAN CORPUSCULAR HGB CONC 35.2 g/dl (32.0-36.5); MEAN CORPUSCULAR VOLUME 92.8 fl (80.0-96.0); MONO # 0.5 K/mm3 (0.0-0.8); MONO % 6.8 % (0.0-5.0); NEUTROPHILS # 3.8 K/mm3 (1.8-7.7); NEUTROPHILS % 58.2 % (36.0-66.0); RED CELL DISTRIBUTION WIDTH 12.9 % (11.5-14.5); WHITE BLOOD COUNT 6.6 K/mm3 (4.0-10.0)
[2016-09-29 18:46] LABS: IMMUNOGLOBULIN G 945 MG/DL (681-1648); IMMUNOGLOBULIN M 70.2 MG/DL (40-230)
[2016-09-29 18:59] LABS: IMMUNOGLOBULIN E 82.1 IU/ML (<100)
== END ==
LOC: M SMT 13:29
PROVIDERS: ATTEND Allergy & Immunology Allergy
DX: Z11.59 Encounter for screening for other viral diseases (principal)

== ENCOUNTER → 2016-12-03 | Outpatient (CLI) | payer BC, OTHER | LOC: M SMT 11:01 | PROVIDERS: ATTEND Nurse Practitioner Family | DX: J32.9 Chronic sinusitis, unspecified (principal) ==

== ENCOUNTER → 2017-01-14 | Outpatient (CLI) | payer BC, OTHER ==
[~2017-01-14] MED LIST changes: +ASPI81TA18 PO; -ASPI81TA4 PO; +METR1TAB66 PO; -METR500T10 PO
[2017-01-14 16:28] LABS: ANION GAP 7 MEQ/L (8-16); BLOOD UREA NITROGEN 14 MG/DL (7-18); CARBON DIOXIDE LEVEL 27 MEQ/L (21-32); CHLORIDE LEVEL 106 MEQ/L (98-107); CREATININE FOR GFR 1.12 MG/DL (0.70-1.30); GLOMERULAR FILTRATION RATE > 60.0 (>49); GLUCOSE, FASTING 90 MG/DL (80-110); POTASSIUM SERUM 4.6 MEQ/L (3.5-5.1); SODIUM LEVEL 140 MEQ/L (136-145)
[2017-01-14 16:29] LABS: ALBUMIN 3.9 GM/DL (3.2-5.2); ALBUMIN/GLOBULIN RATIO 1.18 (1.00-1.93); ALKALINE PHOSPHATASE 60 U/L (45-117); ALT/SGPT 26 U/L (12-78); AST/SGOT 20 U/L (15-37); BILIRUBIN,TOTAL 0.5 MG/DL (0.2-1.0); CALCIUM LEVEL 8.8 MG/DL (8.8-10.2); TOTAL PROTEIN 7.2 GM/DL (6.4-8.2)
== END ==
LOC: M SMT 11:03
PROVIDERS: ATTEND Nurse Practitioner Family
DX: K22.70 Barrett's esophagus without dysplasia (principal); K51.90 Ulcerative colitis, unspecified, without complications

== ENCOUNTER → 2017-03-09 | Outpatient (CLI) | payer BC, OTHER ==
--- NOTE | 2017-03-09 11:38 | REP ---
RIGHT KNEE SERIES: Five views of the right knee are performed. There is no acute fracture or dislocation. There is slight lateral patellofemoral compartment narrowing. A tiny spur is seen in the lateral patellar facet and superior pole of the patella. There is a small joint effusion. IMPRESSION: Mild degenerative changes of the patellofemoral joint. Small joint effusion. Signed by Nnamdi Sims MD 03/09/2017 04:42 P
== END ==
LOC: M WUC 10:25
PROVIDERS: ATTEND Physician Assistant
DX: M22.2X1 Patellofemoral disorders, right knee (principal); M25.461 Effusion, right knee

== ENCOUNTER → 2017-04-08 | Outpatient (REF) | payer BC, OTHER ==
[2017-04-08 16:05] LABS: CREATININE FOR GFR 1.29 MG/DL (0.70-1.30); GLOMERULAR FILTRATION RATE 59.9 (>49)
== END ==
LOC: M LABDRAW1 15:44
PROVIDERS: ATTEND Orthopaedic Surgery
DX: M25.561 Pain in right knee (principal)

== ENCOUNTER → 2017-04-18 | Outpatient (CLI) | payer BC, OTHER ==
--- NOTE | 2017-04-19 20:08 | ECGEPIP ---
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
== END ==
LOC: M EKG 09:58
PROVIDERS: ATTEND Orthopaedic Surgery
DX: Z01.818 Encounter for other preprocedural examination (principal); M23.311 Other meniscus derangements, anterior horn of medial meniscus, right knee

== ENCOUNTER → 2017-05-02 | Outpatient (REF) | payer OTHER, BC | LOC: M LAB REF 17:03 | PROVIDERS: ATTEND Nurse Practitioner Family | DX: J06.9 Acute upper respiratory infection, unspecified (principal) ==

== ENCOUNTER → 2017-06-21 | Outpatient (CLI) | payer BC, OTHER ==
[2017-06-21 14:55] LABS: AMYLASE 41 U/L (25-115)
== END ==
LOC: M SMT 09:27
PROVIDERS: ATTEND Internal Medicine Gastroenterology
DX: R10.9 Unspecified abdominal pain (principal); K22.70 Barrett's esophagus without dysplasia; K51.90 Ulcerative colitis, unspecified, without complications

== ENCOUNTER → 2017-06-22 | Outpatient (REF) | payer OTHER | LOC: M LAB REF 11:37 | PROVIDERS: ATTEND Internal Medicine Gastroenterology | DX: R10.9 Unspecified abdominal pain (principal); K22.70 Barrett's esophagus without dysplasia; K51.90 Ulcerative colitis, unspecified, without complications ==

== ENCOUNTER → 2017-07-15 | Outpatient (CLI) | payer BC, OTHER | LOC: M RAD 07:50 | DX: R97.21 Rising PSA following treatment for malignant neoplasm of prostate (principal) | CPT/HCPCS: 71020 ==

== ENCOUNTER → 2017-09-13 | Outpatient (CLI) | payer BC, OTHER | LOC: M ONCR 12:57 | DX: C61 Malignant neoplasm of prostate (principal) | CPT/HCPCS: G0463 ==

== ENCOUNTER 2017-11-10 13:35 | Outpatient (RCR) | payer BC, OTHER ==
[2017-11-10 14:29] LABS: HEMATOCRIT 40.7 % (42.0-52.0); HEMOGLOBIN 14.3 g/dl (13.5-17.5); MEAN CORPUSCULAR HEMOGLOBIN 32.1 pg (27.0-33.0); MEAN CORPUSCULAR HGB CONC 35.1 g/dl (32.0-36.5); MEAN CORPUSCULAR VOLUME 91.3 fl (80.0-96.0); PLATELET COUNT, AUTOMATED 287 10^3/uL (150-450); RED BLOOD COUNT 4.46 10^6/uL (4.30-6.10); RED CELL DISTRIBUTION WIDTH 12.3 % (11.5-14.5); WHITE BLOOD COUNT 6.7 10^3/uL (4.0-10.0)
[2017-11-10 14:43] LABS: PROSTATIC SPECIFIC AG MONITOR 1.01 NG/ML (< 4.0)
== END 2017-11-14 ==
LOC: M RAD 13:35 → M ONCR 14:16
DX: C61 Malignant neoplasm of prostate (principal)
CPT/HCPCS: 77334

== ENCOUNTER → 2017-11-16 | Outpatient (CLI) | payer BC, OTHER ==
[2017-11-16 18:05] LABS: TOTAL T3 99.3 NG/DL (60.0-181.0)
[2017-11-16 18:09] LABS: THYROXINE (T4) 10.6 UG/DL (4.5-12.0)
[2017-11-18 14:13] LABS: SSA SJOGRENS A <0.2 AI (0.0-0.9); SSB SJOGRENS B <0.2 AI (0.0-0.9)
== END ==
LOC: M SMT 15:29
DX: H16.223 Keratoconjunctivitis sicca, not specified as Sjogren's, bilateral (principal)
CPT/HCPCS: 84443

== ENCOUNTER 2017-11-17 13:30 | Outpatient (RCR) | payer BC, OTHER | END 2017-12-15 | LOC: M ONCR 13:30 | DX: C61 Malignant neoplasm of prostate (principal) | CPT/HCPCS: 77300 ==

== ENCOUNTER 2017-12-16 10:33 | Outpatient (RCR) | payer BC, OTHER | END 2018-01-14 | LOC: M ONCR 10:33 | DX: C61 Malignant neoplasm of prostate (principal); Z98.890 Other specified postprocedural states | CPT/HCPCS: 77336 ==

== ENCOUNTER → 2018-02-03 | Outpatient (CLI) | payer BC, OTHER ==
[2018-02-03 17:10] LABS: PROSTATIC SPECIFIC AG MONITOR 0.52 NG/ML (< 4.0)
== END ==
LOC: M SMT 13:45
DX: C61 Malignant neoplasm of prostate (principal)
CPT/HCPCS: 84153

== ENCOUNTER → 2018-02-08 | Outpatient (CLI) | payer BC, OTHER | LOC: M ONCR 14:57 | DX: C61 Malignant neoplasm of prostate (principal) | CPT/HCPCS: G0463 ==

== ENCOUNTER 2018-02-11 10:59 | Emergency (ER) | payer BC, OTHER ==
[2018-02-11 11:43] LABS: BASO % 0.5 % (0.0-1.0); EOS # 0.2 10^3/uL (0.0-0.50); EOS % 3.6 % (0.0-3.0); HEMATOCRIT 37.6 % (42.0-52.0); HEMOGLOBIN 13.6 g/dl (13.5-17.5); IMMATURE GRANULOCYTE % 1.4 % (0-3.0); LYMPH # 1.2 10^3/uL (1.5-4.5); LYMPH % 19.8 % (24.0-44.0); MEAN CORPUSCULAR HEMOGLOBIN 32.3 pg (27.0-33.0); MEAN CORPUSCULAR HGB CONC 36.2 g/dl (32.0-36.5); MEAN CORPUSCULAR VOLUME 89.3 fl (80.0-96.0); MONO # 0.7 10^3/uL (0.0-0.8); MONO % 12.1 % (0.0-5.0); NEUTROPHILS # 3.7 10^3/uL (1.8-7.7); NEUTROPHILS % 62.6 % (36.0-66.0); PLATELET COUNT, AUTOMATED 262 10^3/uL (150-450); RED BLOOD COUNT 4.21 10^6/uL (4.30-6.10); RED CELL DISTRIBUTION WIDTH 12.3 % (11.5-14.5); WHITE BLOOD COUNT 5.9 10^3/uL (4.0-10.0)
[2018-02-11] MEDS ORDERED: ISOVUE-370 76% 100ML VIAL (Q9967) As Ordered (11:48)
[2018-02-11 12:08] LABS: ALBUMIN 3.7 GM/DL (3.2-5.2); ALBUMIN/GLOBULIN RATIO 0.97 (1.00-1.93); ALKALINE PHOSPHATASE 73 U/L (45-117); ALT/SGPT 35 U/L (12-78); ANION GAP 10 MEQ/L (8-16); AST/SGOT 24 U/L (7-37); BILIRUBIN,DIRECT 0.1 MG/DL (0.0-0.2); BILIRUBIN,TOTAL 0.6 MG/DL (0.2-1.0); BLOOD UREA NITROGEN 13 MG/DL (7-18); CALCIUM LEVEL 8.5 MG/DL (8.8-10.2); CARBON DIOXIDE LEVEL 25 MEQ/L (21-32); CHLORIDE LEVEL 100 MEQ/L (98-107); CK-MB VALUE MASS < 1.0 NG/ML (<3.6); CPK CREATINE PHOSPHOKINASE 84 U/L (39-308); CREATININE FOR GFR 1.04 MG/DL (0.70-1.30); FREE T4 1.02 NG/DL (0.76-1.46); GLOMERULAR FILTRATION RATE > 60.0 (>49); GLUCOSE, FASTING 112 MG/DL (70-100); LIPASE 204 U/L (73-393); MB/CK RELATIVE INDEX 1.19 (< OR =4); POTASSIUM SERUM 4.1 MEQ/L (3.5-5.1); SODIUM LEVEL 135 MEQ/L (136-145); TOTAL PROTEIN 7.5 GM/DL (6.4-8.2); TROPONIN I < 0.02 NG/ML (< 0.10)
[2018-02-11 12:13] LABS: NT-PRO BNP 24 PG/ML (<125)
[2018-02-11] MEDS: MOXIFLOXACIN 400 MG TAB PO (14:03)
== END 2018-02-11 14:12 | disposition home or self-care (01) ==
LOC: M ED 10:59
DX: J18.9 Pneumonia, unspecified organism (principal); I10 Essential (primary) hypertension; K21.9 Gastro-esophageal reflux disease without esophagitis; E78.5 Hyperlipidemia, unspecified; Z79.899 Other long term (current) drug therapy; Z79.82 Long term (current) use of aspirin
CPT/HCPCS: Q9967

== ENCOUNTER → 2018-03-21 | Outpatient (CLI) | payer BC, OTHER ==
[2018-03-21 17:45] LABS: PSA SCREENING 0.27 NG/ML (< 4.0)
== END ==
LOC: M SMT 13:46
DX: C61 Malignant neoplasm of prostate (principal); R97.21 Rising PSA following treatment for malignant neoplasm of prostate
CPT/HCPCS: G0103

== ENCOUNTER → 2018-04-04 | Outpatient (CLI) | payer BC, OTHER ==
[~2018-04-04] MED LIST changes: -ASPI81TA18 PO; -CIPR500S PO; -DELZ400C PO; -LISI-538 PO; +METHACHOLINE KIT (J7674) INH; -METR1TAB66 PO; -MULT1TAB9 PO; -NEXI1CAP4 PO; -PERCOCET PO; -PRED10TA PO; -SIMV20TA2 PO
== END ==
LOC: M CARPUL 09:55
DX: R06.02 Shortness of breath (principal)
CPT/HCPCS: J7674

== ENCOUNTER → 2018-05-30 | Outpatient (REF) | payer OTHER ==
[2018-05-30 17:17] LABS: AMYLASE 43 U/L (25-115)
[2018-05-30 17:17] LABS: C REACTIVE PROTEIN QUANTITATIV < 0.30 MG/DL (0.00-0.30); LIPASE 159 U/L (73-393)
== END ==
LOC: M LAB REF 15:50
DX: R10.9 Unspecified abdominal pain (principal)

== ENCOUNTER → 2018-08-09 | Outpatient (CLI) | payer MEDICARE, BC, OTHER ==
[~2018-08-09] MED LIST changes: +ASPI81TA52 PO; +AVEL1TAB3 PO; +CIPR500S PO; +DELZ400C PO; +LISI-538 PO; -METHACHOLINE KIT (J7674) INH; +METR-201 PO; +MULT1TAB9 PO; +NEXI1CAP4 PO; +PERCOCET PO; +PRED10TA PO; +PRIL20TA2 PO; +SIMV20TA2 PO
== END ==
LOC: M SMT 14:03
PROVIDERS: ATTEND Urology
DX: C61 Malignant neoplasm of prostate (principal)
CPT/HCPCS: 36415; G0103

== ENCOUNTER → 2019-01-19 | Outpatient (CLI) | payer MEDICARE, BC, OTHER ==
[~2019-01-19] MED LIST changes: +ASAC800T3 PO; -METR-201 PO; +METR-265 PO; +PRED-351 PO; -PRED10TA PO
--- NOTE | 2019-01-19 14:31 | REP ---
Clinical: Radiculopathy . Technique: AP, lateral, bilateral oblique, and coned-down views. Findings: Alignment and lordosis is maintained. The vertebral bodies including transverse process and spinous processes are intact and there is no evidence for acute fracture / compression injury or subluxation. No evidence for spondylolysis or spondylolisthesis. Essentially mild multilevel degenerative changes including endplate sclerosis with subtle marginal osteophyte formation. Disc spaces appear to be within normal limits by radiographic evaluation. Impression: Mild multilevel degenerative spondylosis. Electronically Signed by Ramón John MD 01/19/2019 02:23 P
== END ==
LOC: M WUC 13:58
PROVIDERS: ATTEND Physician Assistant
DX: M54.17 Radiculopathy, lumbosacral region (principal)

== ENCOUNTER → 2019-02-05 | Outpatient (CLI) | payer BC, OTHER ==
[~2019-02-05] MED LIST changes: -ASAC800T3 PO
== END ==
LOC: M SMT 13:54
PROVIDERS: ATTEND Physician Assistant
DX: C61 Malignant neoplasm of prostate (principal)

== ENCOUNTER 2019-03-17 12:55 | Emergency (ER) | payer MEDICARE, BC, OTHER ==
[~2019-03-17] VITALS: Ht 180.3 cm; Wt 94.5 kg
[2019-03-17 13:59] LABS: BASO % 0.3 % (0.0-1.0); EOS # 0.2 10^3/uL (0.0-0.50); EOS % 3.2 % (0.0-3.0); HEMATOCRIT 38.1 % (42.0-52.0); HEMOGLOBIN 13.4 g/dl (13.5-17.5); LYMPH # 1.4 10^3/uL (1.5-4.5); LYMPH % 18.8 % (24.0-44.0); MEAN CORPUSCULAR HEMOGLOBIN 33.2 pg (27.0-33.0); MEAN CORPUSCULAR HGB CONC 35.2 g/dl (32.0-36.5); MEAN CORPUSCULAR VOLUME 94.3 fl (80.0-96.0); MONO # 0.7 10^3/uL (0.0-0.8); MONO % 9.5 % (0.0-5.0); NEUTROPHILS # 4.9 10^3/uL (1.8-7.7); NEUTROPHILS % 67.7 % (36.0-66.0); PLATELET COUNT, AUTOMATED 273 10^3/uL (150-450); RED BLOOD COUNT 4.04 10^6/uL (4.30-6.10); WHITE BLOOD COUNT 7.3 10^3/uL (4.0-10.0)
[2019-03-17] MEDS ORDERED: ONDANSETRON 4MG/2ML VIAL (J2405) IV ONE (14:00)
[2019-03-17] MEDS ORDERED: MORPHINE 2 MG/ML 1ML SYRINGE (J2270) IV ONE (14:00)
[2019-03-17] MEDS ORDERED: NS 1,000 ML IV ONE (14:00)
[2019-03-17] MEDS ORDERED: PANTOPRAZOLE 40MG INJ (PROTONIX) (C9113) IV ONE (14:00)
[2019-03-17 14:25] LABS: ALBUMIN 3.7 GM/DL (3.2-5.2); ALT/SGPT 19 U/L (12-78); BILIRUBIN,DIRECT 0.1 MG/DL (0.0-0.2); BILIRUBIN,TOTAL 0.5 MG/DL (0.2-1.0); BLOOD UREA NITROGEN 19 MG/DL (7-18); CALCIUM LEVEL 8.6 MG/DL (8.8-10.2); CARBON DIOXIDE LEVEL 26 MEQ/L (21-32); CHLORIDE LEVEL 105 MEQ/L (98-107); CREATININE FOR GFR 1.07 MG/DL (0.70-1.30); GLOMERULAR FILTRATION RATE > 60.0 (>49); GLUCOSE, FASTING 110 MG/DL (70-100); LIPASE 180 U/L (73-393); POTASSIUM SERUM 4.3 MEQ/L (3.5-5.1); SODIUM LEVEL 138 MEQ/L (136-145); TOTAL PROTEIN 6.8 GM/DL (6.4-8.2)
--- NOTE | 2019-03-17 14:25 | REP ---
Clinical: Abdominal pain. Technique: Axial noncontrast images from the lung bases to the pubic symphysis with coronal and sagittal re-formations. Comparison: 07/15/2017. Findings: Lung bases demonstrate chronic COPD/emphysematous change and minimal scarring. Liver, spleen, pancreas, bilateral adrenal glands and kidneys are normal for noncontrast evaluation. Evidence of prior cholecystectomy. The enteric system is without obstruction or acute inflammatory process. Normal cecum and terminal ileum identified in the right lower quadrant. Few scattered colonic diverticula noted without acute diverticulitis. Pelvis demonstrates normal bladder and evidence of prior prostatectomy. No ascites. No free air. No adenopathy. Atherosclerotic changes of the aorta and vasculature noted without aneurysm. Musculoskeletal structures demonstrate degenerative changes without focal abnormality. Impression: 1. No acute abdominopelvic pathology appreciated. 2. Few scattered colonic diverticula without acute diverticulitis. 3. Evidence of prior cholecystectomy and prostatectomy. Electronically Signed by Ramón John MD 03/17/2019 02:17 P
[2019-03-17 14:50] LABS: INR 1.06; PROTHROMBIN TIME 13.5 SECONDS (11.8-14.0)
[2019-03-17 16:00] VITALS: BP 129/73
[2019-03-17] MEDS ORDERED: ASAC800T3 PO (16:12)
== END 2019-03-17 16:20 | disposition home or self-care (01) ==
LOC: M ED 12:55
DX: R10.84 Generalized abdominal pain (principal); R11.10 Vomiting, unspecified; R19.7 Diarrhea, unspecified; Z88.1 Allergy status to other antibiotic agents; Z79.899 Other long term (current) drug therapy; Z79.82 Long term (current) use of aspirin
CPT/HCPCS: 74176; 80048; 80076; 81001; 83690; 85025; 85610; 96374; 96375; 99284; C9113; J2270; J2405

== ENCOUNTER → 2019-08-01 | Outpatient (CLI) | payer MEDICARE, BC, OTHER ==
[~2019-08-01] MED LIST changes: +ASAC800T3 PO; -SIMV20TA2 PO; +SIMV20TA22 PO
== END ==
LOC: M PLALAB 13:37
PROVIDERS: ATTEND Physician Assistant
DX: C61 Malignant neoplasm of prostate (principal)

== ENCOUNTER → 2019-09-10 | Outpatient (CLI) | payer MEDICARE, BC, OTHER ==
[2019-09-10 12:08] LABS: HEMATOCRIT 39.4 % (42.0-52.0); HEMOGLOBIN 13.8 g/dl (13.5-17.5); MEAN CORPUSCULAR VOLUME 91.4 fl (80.0-96.0); PLATELET COUNT, AUTOMATED 288 10^3/uL (150-450); RED BLOOD COUNT 4.31 10^6/uL (4.30-6.10); WHITE BLOOD COUNT 6.3 10^3/uL (4.0-10.0)
[2019-09-10 12:52] LABS: FERRITIN 423 NG/ML (26-388); IRON (FE) 107 UG/DL (65-175); TOTAL IRON BINDING CAPACITY 289 UG/DL (250-450)
[2019-09-10 12:53] LABS: C REACTIVE PROTEIN QUANTITATIV < 0.30 MG/DL (0.00-0.30)
[2019-09-10 14:02] LABS: ERYTHROCYTE SEDIMENTATION RATE 18 mm/hr (0-20)
== END ==
LOC: M PLALAB 10:12
PROVIDERS: ATTEND Internal Medicine Gastroenterology
DX: K50.919 Crohn's disease, unspecified, with unspecified complications (principal); R13.10 Dysphagia, unspecified

== ENCOUNTER → 2019-11-27 | Outpatient (CLI) | payer MEDICARE, BC, OTHER ==
[~2019-11-27] MED LIST changes: -DELZ400C PO; +DELZ400C5 PO; -LISI-538 PO; +LISI20TA33 PO
[2019-11-27 16:23] LABS: FREE THYROXINE INDEX 2.3 % (1.4-3.8); THYROID STIMULATING HORMONE 2.14 uIU/ML (0.358-3.740); THYROXINE (T4) 7.8 UG/DL (4.5-12.0)
== END ==
LOC: M PLALAB 14:11
PROVIDERS: ATTEND Ophthalmology
DX: Z79.899 Other long term (current) drug therapy (principal)

== ENCOUNTER → 2020-02-20 | Outpatient (REF) | payer MEDICARE, BC, OTHER ==
[~2020-02-20] MED LIST changes: +LISI-538 PO; -LISI20TA33 PO
== END ==
LOC: M PLALAB 07:52
PROVIDERS: ATTEND Physician Assistant
DX: C61 Malignant neoplasm of prostate (principal)

== ENCOUNTER → 2020-06-27 | Outpatient (CLI) | payer MEDICARE, BC, OTHER | LOC: M LAB 10:10 | PROVIDERS: ATTEND Physician Assistant | DX: C61 Malignant neoplasm of prostate (principal) ==

== ENCOUNTER 2020-10-20 16:48 | Observation (INO) | payer MEDICARE, BC, OTHER ==
[~2020-10-20] VITALS: Ht 180.3 cm; Wt 95.5 kg
[~2020-10-20 16:48] MED LIST changes: -LISI-538 PO; +LISI20TA33 PO
[2020-10-20 17:49] LABS: BASO # 0.1 10^3/uL (0.0-0.2); BASO % 0.8 % (0.0-1.0); EOS # 0.2 10^3/uL (0.0-0.5); EOS % 2.7 % (0.0-3.0); HEMATOCRIT 42.6 % (42.0-52.0); HEMOGLOBIN 14.8 g/dl (13.5-17.5); LYMPH # 1.8 10^3/uL (1.5-5.0); LYMPH % 27.9 % (24.0-44.0); MEAN CORPUSCULAR HEMOGLOBIN 32.2 pg (27.0-33.0); MEAN CORPUSCULAR HGB CONC 34.7 g/dl (32.0-36.5); MEAN CORPUSCULAR VOLUME 92.6 fl (80.0-96.0); MONO # 0.7 10^3/uL (0.0-0.8); MONO % 11.4 % (2.0-8.0); NEUTROPHILS # 3.6 10^3/uL (1.5-8.5); NEUTROPHILS % 56.6 % (36.0-66.0); PLATELET COUNT, AUTOMATED 298 10^3/uL (150-450); WHITE BLOOD COUNT 6.4 10^3/uL (4.0-10.0)
--- NOTE | 2020-10-20 17:55 | REP ---
INDICATION: CHEST PAIN. COMPARISON: 02/11/2018. TECHNIQUE: SINGLE PORTABLE AP VIEW OF THE CHEST WAS PERFORMED. FINDINGS: There is no acute infiltrate. There is mild bibasilar fibrotic change which is stable. There is slight elevation of the left hemidiaphragm. The heart is not enlarged. There is calcification and tortuosity of the thoracic aorta. The mediastinal silhouette is unchanged. There are degenerative changes of the spine. IMPRESSION: NO ACUTE PULMONARY DISEASE.Mild bibasilar fibrotic change. <Electronically signed by Nnamdi Sims > 10/20/20 [id number]
[2020-10-20 17:58] LABS: INR 0.99; PROTHROMBIN TIME 13.3 SECONDS (12.5-14.3)
[2020-10-20 17:59] LABS: PARTIAL THROMBOPLASTIN TIME 21.4 SECONDS (24.2-38.5)
[2020-10-20 18:19] LABS: ALBUMIN 4.3 GM/DL (3.2-5.2); ALT/SGPT 27 U/L (12-78); BILIRUBIN,DIRECT 0.1 MG/DL (0.0-0.2); BILIRUBIN,TOTAL 0.3 MG/DL (0.2-1.0); BLOOD UREA NITROGEN 17 MG/DL (7-18); CALCIUM LEVEL 9.4 MG/DL (8.8-10.2); CARBON DIOXIDE LEVEL 27 MEQ/L (21-32); CHLORIDE LEVEL 101 MEQ/L (98-107); CK-MB VALUE MASS 1.9 NG/ML (<3.6); CPK CREATINE PHOSPHOKINASE 137 U/L (39-308); FREE T4 1.06 NG/DL (0.76-1.46); GLOMERULAR FILTRATION RATE > 60.0 (>49); GLUCOSE, FASTING 111 MG/DL (70-100); LIPASE 143 U/L (73-393); MB/CK RELATIVE INDEX 1.39 (< OR =4); NT-PRO BNP 35 PG/ML (<125); POTASSIUM SERUM 4.2 MEQ/L (3.5-5.1); SODIUM LEVEL 135 MEQ/L (136-145); TOTAL PROTEIN 7.7 GM/DL (6.4-8.2); TROPONIN I < 0.02 NG/ML (< 0.10)
[2020-10-20] MEDS ORDERED: ISOVUE-370 76% 100ML VIAL As Ordered ONE (18:54)
[2020-10-20] MEDS ORDERED: ONDANSETRON 4MG/2ML VIAL IV ONE (19:35)
[2020-10-20] MEDS ORDERED: MORPHINE 4 MG/ML 1ML VIAL/SYRINGE (J2270) IV PRN (19:35)
--- NOTE | 2020-10-20 21:04 | REPVR ---
PROCEDURE INFORMATION: Exam: CTA Chest With Contrast Exam date and time: 10/20/2020 7:44 PM Age: 65 years old Clinical indication: Chest pain; Additional info: R/O pe TECHNIQUE: Imaging protocol: Computed tomographic angiography of the chest with contrast. 3D rendering (Not supervised by radiologist): MIP and/or 3D reconstructed images were created by the technologist. Radiation optimization: All CT scans at this facility use at least one of these dose optimization techniques: automated exposure control; mA and/or kV adjustment per patient size (includes targeted exams where dose is matched to clinical indication); or iterative reconstruction. Contrast material: ISOVUE 370; Contrast volume: 100 ml; Contrast route: INTRAVENOUS (IV); COMPARISON: CT ANGIO CHEST 02/11/2018 12:17 PM FINDINGS: Pulmonary arteries: No pulmonary embolism. Aorta: The thoracic aorta is intact and patent. There is no thoracic aortic aneurysm, pseudoaneurysm, penetrating atherosclerotic ulcer, intramural hematoma, or dissection. There are mild atherosclerotic calcifications. Great vessels off aortic arch: The brachiocephalic artery, imaged proximal portions of the common carotid arteries, imaged proximal portions of the vertebral arteries, and subclavian arteries are intact. No stenosis or occlusion of these vessels is noted. 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 Trachea: Normal. Bronchial tree: Normal. Lungs: There is mild dependent atelectasis in the upper and lower lobes. There are 2 mm and 2 mm calcified granulomas in the right upper lobe (images 23 and 26 of the coronal MIP series 405), a 4 mm calcified granuloma in the left upper lobe (image 21 of the coronal MIP series 405), and a 5 mm calcified granuloma in the right lower lobe (image 34 of the coronal MIP series 405). The lungs are otherwise clear. There is no lung consolidation or mass. No emphysematous changes or interstitial lung disease is noted. Pleural spaces: There are calcified bilateral pleural plaques, indicating prior asbestos exposure, which can also be seen in the prior CTA chest on 02/11/2018. No pleural effusion or pneumothorax. Heart: No cardiomegaly or pericardial effusion. The ratio of the diameter of the right ventricle to the diameter of the left ventricle measures less than 1, which is within normal limits and there is no CT evidence for a right ventricular strain. There are coronary artery and aortic valve calcifications. Mediastinal space: No mediastinal mass, fluid collection, or pneumomediastinum. There is fluid in the esophagus, which can be seen with gastroesophageal reflux. There is fluid in the esophagus, which can be seen with gastroesophageal reflux. There is a small sliding hiatal hernia. Lymph nodes: No enlarged lymph nodes. Diaphragm: Intact. Gallbladder and bile ducts: There has been a cholecystectomy. There is no fluid collection in the gallbladder fossa. Bones/joints: There is no fracture or dislocation. No suspicious osteolytic or osteoblastic lesion. There are endplate spurs in the thoracic spine. Soft tissues: Unremarkable. No soft tissue fluid collection. Other findings: For details regarding the abdominal and pelvic findings, refer to the CT abdomen and pelvis report on 10/20/2020. IMPRESSION: 1. No pulmonary embolism. 2. Evidence for gastroesophageal reflux. 3. 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 Electronically signed by: Tomy Carl On 10/20/2020 21:04:59 PM
--- NOTE | 2020-10-20 21:04 | REPVR ---
PROCEDURE INFORMATION: Exam: CT Abdomen And Pelvis With Contrast Exam date and time: 10/20/2020 7:44 PM Age: 65 years old Clinical indication: Abdominal pain; Generalized; Additional info: Chest pain, radiating into abd TECHNIQUE: Imaging protocol: Computed tomography of the abdomen and pelvis with contrast. Radiation optimization: All CT scans at this facility use at least one of these dose optimization techniques: automated exposure control; mA and/or kV adjustment per patient size (includes targeted exams where dose is matched to clinical indication); or iterative reconstruction. Contrast material: ISOVUE 370; Contrast volume: 100 ml; Contrast route: INTRAVENOUS (IV); COMPARISON: CT ABD PELVIS W/O CONTRAST 03/17/2019 2:03 PM FINDINGS: Lungs: For details regarding the lungs, refer to the CTA chest report on 10/20/2020. Pleural spaces: There are bilateral calcified pleural plaques, indicating prior asbestos exposure. Heart: For details regarding the heart, refer to the CTA chest report on 10/20/2020. Mediastinal space: There is a small sliding hiatal hernia. There is fluid in the esophagus, which can be seen with gastroesophageal reflux. Liver: Unremarkable. No liver lesion is identified. The contour of the liver is smooth. No hepatomegaly is noted. Gallbladder and bile ducts: There has been a cholecystectomy. There is no fluid collection in the gallbladder fossa. No dilation of the bile ducts is noted. No calcified stones are seen in the common bile duct. Pancreas: Normal. No dilation of the main pancreatic duct is noted. There is no inflammatory fat stranding around the pancreas to suggest acute pancreatitis. Spleen: The spleen is heterogeneous in appearance, which is likely secondary to the arterial timing of the contrast bolus. No splenomegaly. Adrenal glands: Normal. No adrenal mass is noted. Kidneys and ureters: The kidneys are normal in appearance. No renal lesion is noted. No stones are noted in the kidneys or ureters. There is no hydronephrosis or hydroureter. Stomach and bowel: There is thickening of the wall of the stomach, which may be secondary to its decompressed state versus gastritis. The small bowel is unremarkable. There is mild colonic diverticulosis without evidence for diverticulitis. There is no evidence for a bowel obstruction, colitis, pneumatosis intestinalis, intussusception, volvulus, or perforated viscus. There is a 12 mm dense object within the lumen of the cecum, which may represent ingested medication. Appendix: Normal. There is no evidence for appendicitis. 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 No free air or free fluid is noted. Retroperitoneal space: No fluid collection. No mass. Vasculature: The abdominal aorta is patent, normal in caliber, and there is no dissection. The iliac arteries, common femoral arteries, renal arteries, celiac artery, superior mesenteric artery, and inferior mesenteric artery are patent. There are mild atherosclerotic calcifications. Lymph nodes: No enlarged lymph nodes. Urinary bladder: The distended urinary bladder is normal in appearance. No stones or masses are seen in the bladder. Reproductive: The prostate gland and seminal vesicles have been removed. Bones/joints: There is no fracture or dislocation. No suspicious osteolytic or osteoblastic lesion. There are degenerative changes involving the lumbar spine. There is mild osteoarthritis of both hips. Soft tissues: There is a small fat containing umbilical hernia, which is similar in appearance compared to the prior CT abdomen and pelvis on 03/17/2019. IMPRESSION: 1. Thickening of the wall of the stomach, which may be secondary to its decompressed state versus gastritis. 2. Evidence for gastroesophageal reflux. 3. 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 4. Mild colonic diverticulosis without evidence for diverticulitis. 5. Small fat containing umbilical hernia, which is similar in appearance compared to the prior CT abdomen and pelvis on 03/17/2019. Electronically signed by: Tomy Carl On 10/20/2020 21:04:45 PM
[2020-10-20] MEDS ORDERED: NS 1,000 ML IV ONE (21:25)
[2020-10-20] MEDS ORDERED: GI COCKTAIL 50ML BTL(HYOSCYAMINE/MAALOX/LIDOCAINE VISCOUS)(1:3:1) PO ONE (21:25)
[2020-10-20] MEDS ORDERED: ASPI81TA26 PO (23:08)
[2020-10-20] MEDS ORDERED: VITMTA PO (23:08)
[2020-10-20] MEDS ORDERED: VALA1TAB5 PO (23:08)
[2020-10-20] MEDS ORDERED: LISI40TA4 PO (23:08)
[2020-10-20] MEDS ORDERED: OMEP-221 PO (23:08)
[2020-10-20] MEDS ORDERED: SIMV40TA20 PO (23:08)
[2020-10-20 23:29] LABS: RSV AMPLIFICATION NEGATIVE (NEGATIVE)
--- NOTE | 2020-10-20 23:57 | HPEPDOC ---
[facility] Medical History & Physical Date of Admission Oct 21, 2020 Date of Service: Oct 21, 2020 History and Physical CHIEF COMPLAINT: syncope, weakness, chest pain HISTORY OF PRESENT ILLNESS: 65 yo M with a hx of HTN, IBD (Crohn's and UC), Marcum's esophagus, prostate ca (follows in [place], s/p prostatectomy, radiation) 1st deg AV block, presented to ER with a 2 week hx of R sided chest pain for past 2 weeks, as well as a syncopal episode at that time. He is also c/o diarrhea in that time period, without blood, as well as lower abdominal pain for the past several months. Patient was referred to cardiology but is pending appointment. He denies a prior hx of ACS, CVA. Patient's chest pain was not getting better, and was associated with occasional SOB. Chest pain is pressure like, not related to breathing. In the ER, patient had 2 negative trops, EKG showed no ischemic signs. Pain resolved with nitro. Upon DC patient developed hypotension on standing multiple times to 80s, and BP improved to 100 after IVF. PAST MEDICAL HISTORY: IBD UC and Crohns Prostate Ca s/p prostatectomy, radiation HTN Marcum's esophagus 1st degree AV block possible asbestos exposure PAST SURGICAL HISTORY: Prostatectomy SOCIAL HISTORY: denies smoking, etoh and illicits FAMILY HISTORY: reviewed with patient, denies relevant family hx ALLERGIES: Please see below. REVIEW OF SYSTEMS: 10 point ROS was completed, relevant findings are noted in the HPI. HOME MEDICATIONS: Please see below. PHYSICAL EXAMINATION: VITAL SIGNS: please see below General: NAD, comfortable HEENT: PERRLA, EOMI, sclerae clear Neck: supple, normal ROM, no JVD Respiratory: lungs CTAB, no wheeze, no rales, no crackles CVS: RRR, normal S1, S2, no murmurs Abdo: soft, non distended, no organomegaly. Tenderness to palpation of lower abdomen just above belt line Extremities: no edema, pulses 2+ MSK: no joint deformities, normal ROM Neuro: no focal neuro deficits, moving all 4 extremities, CN2-12 intact. Strength 5/5 in all 4 extremities. No nystagmus. Psych: calm, cooperative, AAO x 3 LABORATORY DATA: See below. IMAGING: CXR (10/20/20): NO ACUTE PULMONARY DISEASE.Mild bibasilar fibrotic change. CTA chest (10/20/20): 1. No pulmonary embolism. 2. Evidence for gastroesophageal reflux. 3. 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 CT abdo and pelvis (10/20/20): 1. Thickening of the wall of the stomach, which may be secondary to its decompressed state versus gastritis. 2. Evidence for gastroesophageal reflux. 3. 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 4. Mild colonic diverticulosis without evidence for diverticulitis. 5. Small fat containing umbilical hernia, which is similar in appearance compared to the prior CT abdomen and pelvis on 03/17/2019. MICROBIOLOGY: Please see below. ASSESSMENT: 65 yo M with a hx of HTN, IBD (Crohn's and UC), Marcum's esophagus, prostate ca (follows in [place], s/p prostatectomy, radiation) 1st deg AV block, presented to ER with a 2 week hx of R sided chest pain for past 2 weeks, as well as a syncopal episode at that time. He is also c/o diarrhea in that time period, without blood, as well as lower abdominal pain for the past several months. Patient will be admitted for monitoring of BP, syncope workup. . PLAN: Syncope: - EKG 1st deg AV block - hold lisinopril - check orthostats q8h - check 2D echo - check carotid US - PT/OT ordered Chest pain - precordial - troponin < 0.02 x 2 - BNP 35 - EKG showing no ischemic changes - CTA PE is without PE. 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 - uncertain if this is a consequence of IBD - consider d/w surgery - patient is afebrile, has no leukocytosis - no abx at this time Diarrhea - chronic, for the past 2-3 weeks, non bloody - check GI panel hx of prostate ca - has follow up next week, with PSA check - sees urology in [place], [place] Hx of HTN - BP low, suspected vasovagal syncope - hold lisinopril DVT ppx - lovenox - SCDs - TEDs Dispo: pending clinical improvement Vital Signs Vital Signs Date Time Temp Pulse Resp B/P (MAP) Pulse Ox O2 Delivery O2 Flow Rate FiO2 10/20/20 20:34 18 10/20/20 18:15 169/97 (121) 10/20/20 18:00 74 99 Room Air 10/20/20 16:49 97.6 Laboratory Data Labs 24H Laboratory Tests 2 10/20/20 17:33: Immature Granulocyte % (Auto) 0.6, Neutrophils (%) (Auto) 56.6, Lymphocytes (%) (Auto) 27.9, Monocytes (%) (Auto) 11.4H, Eosinophils (%) (Auto) 2.7, Basophils (%) (Auto) 0.8, Neutrophils # (Auto) 3.6, Lymphocytes # (Auto) 1.8, Monocytes # (Auto) 0.7, Eosinophils # (Auto) 0.2, Basophils # (Auto) 0.1, Nucleated Red Blood Cells % (auto) 0.0, Prothrombin Time 13.3, Prothromb Time International Ratio 0.99, Activated Partial Thromboplast Time 21.4L, Anion Gap 7L, Glomerular Filtration Rate > 60.0, Calcium Level 9.4, Total Bilirubin 0.3, Direct Bilirubin 0.1, Aspartate Amino Transf (AST/SGOT) 23, Alanine Aminotransferase (ALT/SGPT) 27, Alkaline Phosphatase 77, Total Creatine Kinase 137, Creatine Kinase MB 1.9, Creatine Kinase MB Relative Index 1.39, Troponin I < 0.02, KY-Nmg-D-Type Natriuretic Peptide 35, Total Protein 7.7, Albumin 4.3, Albumin/Globulin Ratio 1.3, Lipase 143, Thyroid Stimulating Hormone (TSH) 3.020, Free Thyroxine 1.06 10/20/20 20:29: Troponin I < 0.02 10/20/20 21:58: Bedside Glucose (Misc Panel) 148H 10/20/20 22:43: Coronavirus (COVID-19)(PCR) NEGATIVE, Influenza Type A (RT-PCR) NEGATIVE, Influenza Type B (RT-PCR) NEGATIVE, Respiratory Syncytial Virus (PCR) NEGATIVE CBC/BMP Laboratory Tests 10/20/20 17:33 Home Medications Scheduled Aspirin (Aspirin EC) 81 Mg Tablet.dr, 81 MG PO DAILY Lisinopril (Lisinopril) 20 Mg Tablet, 1 TAB PO DAILY Multivitamins (Thera M Plus Tablet) 1 Each Tablet, 1 TAB PO DAILY Omeprazole (Omeprazole) 40 Mg Capsule.dr, 40 MG PO DAILY Simvastatin (Simvastatin) 40 Mg Tablet, 40 MG PO QHS Scheduled PRN Valacyclovir HCl (Valacyclovir) 1,000 Mg Tablet, 1 GRAM PO DAILY PRN for COLD SORES Allergies Coded Allergies: erythromycin base (Verified Adverse Reaction, Unknown, stomach upset, 03/17/19) A-FIB/CHADSVASC A-FIB History Current/History of A-Fib/PAF?: No Current PO Anticoag Therapy: No JEFERSON HARRIS MD Oct 20, 2020 23:56
[2020-10-21] MEDS ORDERED: MOM 30ML SUSPENSION UDC PO PRN (01:55)
[2020-10-21] MEDS ORDERED: MAALOX 30 ML SUSP *UDC PO PRN (01:55)
[2020-10-21 02:45] VITALS: BP 163/104
[2020-10-21] MEDS: ACETAMINOPHEN TAB 650MG DOSE (2X325MG) PO PRN ×2 (03:07→18:26)
[2020-10-21] MEDS: SIMVASTATIN 40 MG TAB PO SCH ×2 (03:58→20:31)
[2020-10-21] MEDS: HEPARIN SOD (PORCINE) 5000UNITS/ML 1ML VIAL/SYRINGE SC SCH ×3 (05:57→20:31)
[2020-10-21 06:00] VITALS: BP 132/80
--- NOTE | 2020-10-21 06:26 | REPVR ---
PROCEDURE INFORMATION: Exam: US Duplex Bilateral Extracranial Arteries Exam date and time: 10/21/2020 5:30 AM Age: 65 years old Clinical indication: Dizziness and syncope and collapse TECHNIQUE: Imaging protocol: Real-time Duplex ultrasound scan of the bilateral carotid and vertebral arteries combining braga scale, color Doppler and spectral waveform analysis. Bilateral exam. COMPARISON: No relevant prior studies available. FINDINGS: Right common carotid artery: Echogenic plaque seen in the proximal to mid right CCA with focal irregularity and crater like defect seen on image 22 in the mid right CCA possibly focal ulceration. Normal waveform seen in the right CCA with peak systolic velocities measuring 61.2 cm/s, 74.6 cm/s and 70.4 cm/s respectively in the proximal, mid and distal CCA. Right internal carotid artery: Mild mural echogenic plaque seen in the right carotid bulb with normal waveforms and peak systolic velocity of 54.5 cm/s. Calcified plaque seen in the proximal right ICA with normal waveform and peak systolic velocity of 48.3 cm/s. The mid right ICA is patent with peak systolic velocity of 51.4 cm/s. The distal right ICA is patent with normal waveform and peak systolic velocity of 57.1 cm/s. Right ICA/CCA ratio: The right ICA to CCA ratio measures 0.77. Right external carotid artery: The proximal right ECA is patent with peak systolic velocity of 61.7 cm/s. Right vertebral artery: Antegrade flow seen in the right vertebral artery with peak systolic velocity of 24.2 cm/s. Left common carotid artery: Mural echogenic plaque seen in the left CCA. Normal waveform seen in the left CCA with peak systolic velocities measuring 54.3 cm/s, 61.2 cm/s and 61.7 cm/s in the proximal, mid and distal CCA respectively. Left internal carotid artery: Small echogenic plaque seen in the left carotid bulb with peak systolic velocity of 54 cm/s. Mild echogenic mural plaques seen in the proximal left ICA with normal waveform and peak systolic velocity of 35.5 cm/s. The left mid ICA is patent with normal waveform and peak systolic velocity of 53 cm/s. The distal left ICA is patent with normal waveform and peak systolic velocity of 41.3 cm/s. Left ICA/CCA ratio: The left ICA to CCA ratio measures 0.86. Left external carotid artery: Mild mural irregularity seen in the proximal left ECA with normal waveform and peak systolic velocity of 43.8 cm/s. Left vertebral artery: Antegrade flow seen in the left vertebral artery with peak systolic velocity of 60.2 cm/s. IMPRESSION: 1. Scattered echogenic and partly calcified plaques in the bilateral CCAs, carotid bulbs and ICAs with no Doppler evidence of hemodynamically significant stenosis. Predominantly less than 30% stenosis noted. 2. Suggestion of focal crater like defect in a right mid CCA plaque raising the possibility of ulcerated plaque. 3. Antegrade flow seen in the right and left vertebral arteries. REFERENCES: SRU CRITERIA. The degree of internal carotid artery stenosis is based on criteria defined by the Society of Radiologists in Ultrasound (SRU). Normal is no stenosis. Mild is less than 50% stenosis. Moderate is 50-69% stenosis. Severe is greater than 69% stenosis to near occlusion. Near occlusion is a markedly narrowed lumen. Total occlusion is no detectable patent lumen. Electronically signed by: Justice Ellison On 10/21/2020 06:26:45 AM
[2020-10-21 06:33] LABS: BASO % 0.3 % (0.0-1.0); EOS # 0.1 10^3/uL (0.0-0.5); EOS % 0.8 % (0.0-3.0); HEMATOCRIT 41.6 % (42.0-52.0); HEMOGLOBIN 14.1 g/dl (13.5-17.5); LYMPH # 1.6 10^3/uL (1.5-5.0); LYMPH % 25.8 % (24.0-44.0); MEAN CORPUSCULAR HGB CONC 33.9 g/dl (32.0-36.5); MEAN CORPUSCULAR VOLUME 94.3 fl (80.0-96.0); MONO # 0.6 10^3/uL (0.0-0.8); MONO % 9.9 % (2.0-8.0); NEUTROPHILS # 3.8 10^3/uL (1.5-8.5); NEUTROPHILS % 62.9 % (36.0-66.0); PLATELET COUNT, AUTOMATED 264 10^3/uL (150-450); RED BLOOD COUNT 4.41 10^6/uL (4.30-6.10); WHITE BLOOD COUNT 6.1 10^3/uL (4.0-10.0)
[2020-10-21 07:02] LABS: ALBUMIN 3.8 GM/DL (3.2-5.2); ALT/SGPT 36 U/L (12-78); BILIRUBIN,TOTAL 0.5 MG/DL (0.2-1.0); BLOOD UREA NITROGEN 13 MG/DL (7-18); CARBON DIOXIDE LEVEL 28 MEQ/L (21-32); CHLORIDE LEVEL 102 MEQ/L (98-107); CREATININE FOR GFR 0.97 MG/DL (0.70-1.30); GLOMERULAR FILTRATION RATE > 60.0 (>49); GLUCOSE, FASTING 103 MG/DL (70-100); MAGNESIUM LEVEL 2.2 MG/DL (1.8-2.4); POTASSIUM SERUM 4.6 MEQ/L (3.5-5.1); SODIUM LEVEL 136 MEQ/L (136-145); TOTAL PROTEIN 7.1 GM/DL (6.4-8.2)
[2020-10-21] MEDS ORDERED: lisinopriL 40 MG TAB PO SCH (09:00)
[2020-10-21] MEDS: ASPIRIN 81MG ENTERIC TABLET PO SCH (09:36)
[2020-10-21] MEDS: DOCUSATE SODIUM 100MG CAPSULE PO SCH ×2 (09:36→20:31)
[2020-10-21] MEDS: MULTIVITAMINS/MINERALS THERAP 1 TAB PO SCH (09:36)
[2020-10-21] MEDS: OMEPRAZOLE 20 MG CAP PO SCH (09:36)
[2020-10-21 12:09] LABS: C REACTIVE PROTEIN QUANTITATIV < 0.30 MG/DL (0.00-0.30)
[2020-10-21 12:26] LABS: ERYTHROCYTE SEDIMENTATION RATE 12 mm/hr (0-20)
[2020-10-21 14:00] VITALS: BP 150/92
--- NOTE | 2020-10-21 17:56 | ECGEPIP ---
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
--- NOTE | 2020-10-21 17:57 | ECGEPIP ---
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
[2020-10-21] MEDS ORDERED: ISOVUE-370 76% 100ML VIAL As Ordered ONE (19:30)
--- NOTE | 2020-10-21 21:39 | IPNPDOC ---
Subjective Date Seen The patient was seen on 10/21/20. Subjective Chief Complaint/HPI Mr. Ybarra is a 65 year old male with inflammatory bowel disease and 1st degree AV blood who presents with syncope and hypotension. This morning, he was sleepy, but denies chest pain or dyspnea. US carotids demonstrated ulcerated plaque. Spoke with vascular surgery of [facility] (Dr. Meadows) about ulcerated plaque. Since it is less than 30% plaque, he was skeptical about ulceration, but recommended CT angio of neck for further definition and outpatient follow up. Since patient had recent contrast study, will have to wait for this evening to have CT angio of neck. Objective Physical Examination General Exam: Positive: Alert, Cooperative Eye Exam: Positive: EOMI; Negative: Sclera icteric Neck Exam: Positive: Supple Chest Exam: Positive: Clear to auscultation; Negative: Rales, Rhonchi, Wheezing Heart Exam: Positive: Rate Normal, Regular Rhythm Abdomen Exam: Positive: Normal bowel sounds, Soft, Tenderness (Lower abdominal tenderness) Neuro Exam: Positive: Normal Speech Psych Exam: Positive: Mental status NL, Mood NL Assessment /Plan Assessment Mr. Ybarra is a 65 year old male with inflammatory bowel disease and 1st degree AV blood who presents with syncope and hypotension. This may be secondary to poor oral intake from abdominal pain from inflammatory bowel disease. Follows outpatient with GI for IBD. Otherwise, will obtain echocardiogram today and CT angio of neck later this evening. Plan/VTE VTE Prophylaxis Ordered?: Yes Plan 1. Syncope -Hypotension responding to fluids -Possibly poor oral intake from abdominal pain from IBD -Monitor on telemetry and obtain echocardiogram 2. Ulcerated carotid plaque -[facility] vascular surgery recommends CT angio of neck for further definition and outpatient follow up with vascular surgery 3. Abdominal pain -Chronic, history of IBD -CT demonstrates "cash mesentery" which may be from IBD -Follow up with GI outpatient 4. Diarrhea -May be secondary to IBD -Monitor, follow up with GI outpatient 5. History of prostate cancer -Follow up with Urology outpatient in [place], [place] 6. Hypertension -Blood pressure low on admission -Lisinopril held 7. DVT ppx -Lovenox VS, I&O, 24H, Fishbone Vital Signs/I&O Vital Signs Date Time Temp Pulse Resp B/P (MAP) Pulse Ox O2 Delivery O2 Flow Rate FiO2 10/21/20 14:00 97.4 74 18 150/92 (111) 98 Room Air I&O- Last 24 Hours up to 6 AM 10/21/20 06:00 Intake Total 1250 ml Balance 1250 ml Laboratory Data 24H LABS Laboratory Tests 2 10/20/20 21:58: Bedside Glucose (Misc Panel) 148H 10/20/20 22:43: Coronavirus (COVID-19)(PCR) NEGATIVE, Influenza Type A (RT-PCR) NEGATIVE, In fluenza Type B (RT-PCR) NEGATIVE, Respiratory Syncytial Virus (PCR) NEGATIVE 10/21/20 06:07: Immature Granulocyte % (Auto) 0.3, Neutrophils (%) (Auto) 62.9, Lymphocytes (%) (Auto) 25.8, Monocytes (%) (Auto) 9.9H, Eosinophils (%) (Auto) 0.8, Basophils (%) (Auto) 0.3, Neutrophils # (Auto) 3.8, Lymphocytes # (Auto) 1.6, Monocytes # (Auto) 0.6, Eosinophils # (Auto) 0.1, Basophils # (Auto) 0.0, Nucleated Red Blood Cells % (auto) 0.0, Erythrocyte Sedimentation Rate 12, Anion Gap 6L, Glomerular Filtration Rate > 60.0, Calcium Level 9.0, Magnesium Level 2.2, Total Bilirubin 0.5#, Aspartate Amino Transf (AST/SGOT) 32, Alanine Aminotransferase (ALT/SGPT) 36, Alkaline Phosphatase 64, Troponin I < 0.02, C-Reactive Protein, Quantitative < 0.30, Total Protein 7.1, Albumin 3.8, Albumin/Globulin Ratio 1.2 CBC/BMP Laboratory Tests 10/21/20 06:07 LEONARD WOOD DO Oct 21, 2020 21:39
[2020-10-21 22:00] VITALS: BP 138/81
[2020-10-22] MEDS: HEPARIN SOD (PORCINE) 5000UNITS/ML 1ML VIAL/SYRINGE SC SCH ×2 (05:01→13:15)
[2020-10-22 06:00] VITALS: BP 136/78
[2020-10-22 06:36] LABS: HEMATOCRIT 44.3 % (42.0-52.0); MEAN CORPUSCULAR HEMOGLOBIN 31.7 pg (27.0-33.0); MEAN CORPUSCULAR HGB CONC 33.9 g/dl (32.0-36.5); MEAN CORPUSCULAR VOLUME 93.7 fl (80.0-96.0); PLATELET COUNT, AUTOMATED 280 10^3/uL (150-450); RED BLOOD COUNT 4.73 10^6/uL (4.30-6.10); WHITE BLOOD COUNT 5.9 10^3/uL (4.0-10.0)
[2020-10-22 06:57] LABS: BLOOD UREA NITROGEN 12 MG/DL (7-18); CALCIUM LEVEL 9.3 MG/DL (8.8-10.2); CARBON DIOXIDE LEVEL 28 MEQ/L (21-32); CHLORIDE LEVEL 104 MEQ/L (98-107); CREATININE FOR GFR 0.97 MG/DL (0.70-1.30); GLOMERULAR FILTRATION RATE > 60.0 (>49); GLUCOSE, FASTING 111 MG/DL (70-100); POTASSIUM SERUM 4.3 MEQ/L (3.5-5.1); SODIUM LEVEL 135 MEQ/L (136-145)
[2020-10-22] MEDS: MULTIVITAMINS/MINERALS THERAP 1 TAB PO SCH (08:19)
[2020-10-22] MEDS: OMEPRAZOLE 20 MG CAP PO SCH (08:19)
[2020-10-22] MEDS: DOCUSATE SODIUM 100MG CAPSULE PO SCH (08:19)
[2020-10-22] MEDS: ASPIRIN 81MG ENTERIC TABLET PO SCH (08:19)
--- NOTE | 2020-10-22 09:29 | REP ---
INDICATION: Evaluation of carotid plaque COMPARISON: Duplex carotid ultrasound study 10/21/2020 TECHNIQUE: Axial CT images with multiplanar reformations with contrast. FINDINGS: On the right, the common and internal carotid arteries are patent. There is calcified plaque at the carotid bifurcation. The calcification is seen laterally, the approximate degree of stenosis appears less than 50%. On the left, also noted heavy atherosclerotic plaquing at the bifurcation laterally. The degree of stenosis appears approximately 50%. IMPRESSION: 1. Calcific plaquing at the carotid bifurcations bilaterally. No evidence of a high-grade stenosis, narrowing appears to be less than 50% bilaterally. 2. The prior ultrasound study suggested a crater-like defect at the right mid CCA plaque, concerning for ulcerated plaque. This is not definitely identified on today's CT examination however directed ultrasound is likely to be more sensitive for this finding. <Electronically signed by Sang Estrada > 10/22/20 [id number]
[2020-10-22] MEDS ORDERED: LISI20TA33 PO (14:07)
--- NOTE | 2020-10-22 22:56 | DS.PDOC ---
Discharge Summary General Date of Admission Oct 20, 2020 at 16:49 Date of Discharge Oct 22, 2020 Discharge Summary PROCEDURES PERFORMED DURING STAY: None ADMITTING DIAGNOSES: 1. Syncope 2. Atypical chest pain 3. 1st Degree AV block 4. Chronic abdominal pain 5. Chronic diarrhea 6. History of Prostate Cancer 7. Hypertension 8. Inflammatory bowel disease DISCHARGE DIAGNOSES: 1. Syncope 2. Atypical chest pain 3. 1st Degree AV block 4. Chronic abdominal pain 5. Chronic diarrhea 6. History of Prostate Cancer 7. Hypertension 8. Inflammatory bowel disease COMPLICATIONS/CHIEF COMPLAINT: Hypotension,Syncope. HISTORY OF PRESENT ILLNESS: Mr. Ybarra is a 65 year old male with IBD, Marcum's esophagus, prostate cancer, and 1st deg AV block who is here for chest pain, syncope, and hypotension. For the past several months, he has been having abdominal pain. Then about 2 weeks ago, he had a syncopal event and right sided chest pain. In this time period, he also had diarrhea. He was referred to cardiology, but is still pending appointment. Chest pain persistent with occasional dyspnea. He came to ED for further work up. He had 2 negative troponin and EKG was negative for ischemia. Chest pain improved with nitro. He was going to be discharged from the ED, but he was hypotensive with standing. Blood pressure improved with IVF. Patient was placed in observation for orthostatic hypotension and syncope. HOSPITAL COURSE: During his hospitalization he had a CT abd/pelvis which demonstrated chronic mesenteric panniculitis. GI panel was negative. He had an echocardiogram which demonstrated an EF of 70%, grade 1 diastolic dysfunction, and mild pulmonary hypertension. US carotids demonstrated right mid CCA plaque. We did not have Vascular Surgery here, so I reached out to [facility] [place] vascular surgeon, Dr. Meadows. Dr. Meadows was skeptical about the ulcerated plaque as the plaque was <30%. Dr. Meadows had recommended obtaining CT angio of neck and following up outpatient with vascular surgery for monitoring. CT angio neck had to wait 24 hours from previous contrast study. He had CT angio chest and CT abd/pelvis with IV contrast on admission. He obtained CT angio neck later in the evening. Ulcerated plaque was not seen on CT angio of neck. I recommended that patient follow outpatient with vascular surgery. Otherwise, his blood pressure did not drop during hospital stay after receiving fluids. He may have been dehydrated from diarrhea and poor oral intake. Lisinopril was decreased from 40m g qD to 20mg qD, and he was instructed to drink more fluids. On day of discharge, he was feeling well and felt ready for home. He was subsequently discharged home. DISCHARGE MEDICATIONS: Please see below. ALLERGIES: Please see below. PHYSICAL EXAMINATION ON DISCHARGE: VITAL SIGNS: Please see below. GENERAL: Comfortable, in no apparent distress HEENT: Head normocephalic, atraumatic CARDIOVASCULAR EXAMINATION: Regular rate and rhythm RESPIRATORY EXAMINATION: Lungs clear to auscultation bilaterally ABDOMINAL EXAMINATION: Soft, lower abdominal tenderness, normal bowel sounds SKIN: Warm and dry NEUROLOGICAL EXAMINATION: CN 3-12 grossly intact PSYCHIATRIC EXAMINATION: Normal mood and affect LABORATORY DATA: Please see below. IMAGING: Radiologist interpretation CT angio chest 1. No pulmonary embolism. 2. Evidence for gastroesophageal reflux. 3. 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 CT abd/pelvis with IV contrast 1. Thickening of the wall of the stomach, which may be secondary to its decompressed state versus gastritis. 2. Evidence for gastroesophageal reflux. 3. 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 4. Mild colonic diverticulosis without evidence for diverticulitis. 5. Small fat containing umbilical hernia, which is similar in appearance compared to the prior CT abdomen and pelvis on 03/17/2019. US carotid neck 1. Scattered echogenic and partly calcified plaques in the bilateral CCAs, carotid bulbs and ICAs with no Doppler evidence of hemodynamically significant stenosis. Predominantly less than 30% stenosis noted. 2. Suggestion of focal crater like defect in a right mid CCA plaque raising the possibility of ulcerated plaque. 3. Antegrade flow seen in the right and left vertebral arteries. CT angio neck 1. Calcific plaquing at the carotid bifurcations bilaterally. No evidence of a high-grade stenosis, narrowing appears to be less than 50% bilaterally. 2. The prior ultrasound study suggested a crater-like defect at the right mid CCA plaque, concerning for ulcerated plaque. This is not definitely identified on today's CT examination however directed ultrasound is likely to be more sensitive for this finding. PROGNOSIS: Good ACTIVITY: As tolerated. DIET: 2gm sodium diet DISCHARGE PLAN: Home DISPOSITION: 01 Home, Self-Care. DISCHARGE INSTRUCTIONS: 1. Follow up with PCP within 5 days 2. Discuss with your PCP about referral to vascular surgery 3. Measure and record your blood pressure at home. Bring your results to your PCP to help manage your blood pressure DISCHARGE CONDITION: Stable. Total time spent on discharge planning, discharge summary, and medication reconciliation: 50 minutes Vital Signs/I&Os Vital Signs Date Time Temp Pulse Resp B/P (MAP) Pulse Ox O2 Delivery O2 Flow Rate FiO2 10/22/20 06:00 98.0 70 18 136/78 (97) 98 Room Air I&O- Last 24 Hours up to 6 AM 10/22/20 06:00 Intake Total 1360 ml Output Total 0 ml Balance 1360 ml Laboratory Data Labs 24H Laboratory Tests 2 10/22/20 06:15: Nucleated Red Blood Cells % (auto) 0.0, Anion Gap 3L, Glomerular Filtration Rate > 60.0, Calcium Level 9.3 CBC/BMP Laboratory Tests 10/22/20 06:15 Microbiology Microbiology 10/21/20 Gastrointestinal Tract Panel (PCR) - Final, Complete Discharge Medications Scheduled Aspirin (Aspirin EC) 81 Mg Tablet.dr, 81 MG PO DAILY, (Reported) Lisinopril (Lisinopril) 20 Mg Tablet, 1 TAB PO DAILY Multivitamins (Thera M Plus Tablet) 1 Each Tablet, 1 TAB PO DAILY, (Reported) Omeprazole (Omeprazole) 40 Mg Capsule.dr, 40 MG PO DAILY, (Reported) Simvastatin (Simvastatin) 40 Mg Tablet, 40 MG PO QHS, (Reported) Scheduled PRN Valacyclovir HCl (Valacyclovir) 1,000 Mg Tablet, 1 GRAM PO DAILY PRN for COLD SORES, (Reported) Allergies Coded Allergies: erythromycin base (Verified Adverse Reaction, Unknown, stomach upset, 03/17/19) LEONARD WOOD DO Oct 22, 2020 22:56
--- NOTE | 2020-10-23 12:28 | ECHO ---
DATE OF PROCEDURE: 10/22/2020 Age: 65 Gender: Male Height: 74 inches Weight: 209 pounds Body Surface Area: 2.22 m2 PATIENT LOCATION: Inpatient [address] [place] Room 4214 REFERRING PHYSICIAN: Khari Farfan MD. INDICATION: Syncope. MEASUREMENTS: 2D Measurements: RV 4.0 cm LV 4.7 cm Septum 1.3 cm Posterior wall 1.3 cm Aortic Root 3.8 cm Ascending aorta 3.6 cm LA 4.2 cm LVEF 70% Doppler Measurements: AV 2.17 m/s LVOT 0.85 m/s LVOT diameter 2.4 cm Mean AV gradient 9 mmHg Dimensionless index 0.46 MV-E 51, A 80, EA ratio 0.6 Early mitral deceleration time 177 msec E prime medial 6.3, A prime medial 11, E prime lateral 6.4 Average E/E prime ratio 8/PCWP 11.9 mmHg PV 1.0 m/s Pulmonary artery acceleration time 100 msec PASP 37 mmHg IVC Could not be visualized. COMMENTS: Normal sinus rhythm without intraventricular conduction disturbance. A technically challenging study in light of the patient's body habitus, but diagnostically useful information was still obtained. M-mode and 2-dimensional echocardiography was performed with pulse, continuous wave, color flow, and tissue Doppler studies. Mild concentric left ventricular hypertrophy with localized proximal inferior akinesis yet preserved global resting systolic function. Mildly dilated left atrium with grade 1 LV diastolic dysfunction but currently normal estimated mean left atrial pressure. Normal right heart chamber sizes and motion with Doppler sign of mild pulmonary hypertension. Normal right atrial size but could not visualize the inferior vena cava to further estimate central venous pressure. Aortic root and ascending aortic diameters upper limits of normal. Moderate aortic valvular sclerosis without significant left ventricular outflow tract obstruction and only very mild insufficiency. Slight thickening of the mitral valvular apparatus with adequate leaflet excursion and no posterior systolic buckling. Trace physiologic mitral insufficiency. Normal appearing tricuspid valve with very mild insufficiency. No apparent intracardiac mass or pericardial effusion. MTDD
== END 2020-10-22 15:30 | disposition home or self-care (01) ==
LOC: M ED 16:48 → M ED INP 16:49 → ENRESERV 10-21 00:57 → M MSPAV 10-21 02:46
PROVIDERS: ADMIT Family Medicine; ATTEND Internal Medicine
DX: R55 Syncope and collapse (principal); R07.89 Other chest pain; I95.9 Hypotension, unspecified; K52.9 Noninfective gastroenteritis and colitis, unspecified; I44.0 Atrioventricular block, first degree; R10.30 Lower abdominal pain, unspecified; I10 Essential (primary) hypertension; I65.29 Occlusion and stenosis of unspecified carotid artery; K63.9 Disease of intestine, unspecified; Z85.46 Personal history of malignant neoplasm of prostate; R06.02 Shortness of breath; K22.70 Barrett's esophagus without dysplasia; Z77.090 Contact with and (suspected) exposure to asbestos; K21.9 Gastro-esophageal reflux disease without esophagitis; K57.90 Diverticulosis of intestine, part unspecified, without perforation or abscess without bleeding; E78.5 Hyperlipidemia, unspecified; Z79.899 Other long term (current) drug therapy; Z79.82 Long term (current) use of aspirin; Z88.1 Allergy status to other antibiotic agents; Z90.79 Acquired absence of other genital organ(s); Z92.3 Personal history of irradiation
CPT/HCPCS: 36415; 70498; 71045; 71275; 74177; 80048; 80053; 80076; 82550; 82553; 83690; 83735; 83880; 84439; 84443; 84484; 85025; 85027; 85610; 85652; 85730; 86140; 87505; 87631; 93005; 93041; 93306; 93880; 94760; 96374; 96375; 97161; 97165; 99285; G0378; J2270; J2405; Q9967

== ENCOUNTER → 2020-11-06 | Outpatient (CLI) | payer MEDICARE, BC, OTHER ==
[~2020-11-06] MED LIST changes: +ASPI81TA26 PO; +LISI40TA4 PO; +OMEP-221 PO; +SIMV40TA20 PO; +VALA1TAB5 PO; +VITMTA PO
[2020-11-06 12:31] LABS: HEMATOCRIT 43.2 % (42.0-52.0); HEMOGLOBIN 14.8 g/dl (13.5-17.5); MEAN CORPUSCULAR HEMOGLOBIN 31.6 pg (27.0-33.0); MEAN CORPUSCULAR HGB CONC 34.3 g/dl (32.0-36.5); MEAN CORPUSCULAR VOLUME 92.1 fl (80.0-96.0); PLATELET COUNT, AUTOMATED 336 10^3/uL (150-450); RED BLOOD COUNT 4.69 10^6/uL (4.30-6.10)
[2020-11-06 12:50] LABS: ERYTHROCYTE SEDIMENTATION RATE 16 mm/hr (0-20)
[2020-11-06 12:59] LABS: ALBUMIN 4.1 GM/DL (3.2-5.2); ALT/SGPT 26 U/L (12-78); BILIRUBIN,TOTAL 0.5 MG/DL (0.2-1.0); BLOOD UREA NITROGEN 14 MG/DL (7-18); CALCIUM LEVEL 9.5 MG/DL (8.8-10.2); CARBON DIOXIDE LEVEL 26 MEQ/L (21-32); CHLORIDE LEVEL 100 MEQ/L (98-107); CREATININE FOR GFR 0.92 MG/DL (0.70-1.30); GLOMERULAR FILTRATION RATE > 60.0 (>49); GLUCOSE, FASTING 105 MG/DL (70-100); POTASSIUM SERUM 4.6 MEQ/L (3.5-5.1); SODIUM LEVEL 133 MEQ/L (136-145); TOTAL PROTEIN 7.5 GM/DL (6.4-8.2)
[2020-11-06 13:03] LABS: HEPATITIS B SURFACE ANTIBODY NEGATIVE (POSITIVE)
[2020-11-06 13:14] LABS: HEPATITIS B SURFACE ANTIGEN NEGATIVE (NEGATIVE)
== END ==
LOC: M LAB 10:44
PROVIDERS: ATTEND Internal Medicine Gastroenterology
DX: K52.9 Noninfective gastroenteritis and colitis, unspecified (principal)

== ENCOUNTER → 2021-01-06 | Outpatient (CLI) | payer MEDICARE, BC, OTHER ==
--- NOTE | 2021-01-06 11:39 | PFTRPT ---
Height: 71.00 Inches Weight: 203.00 Lbs BSA: 2.12 Diagnosis: R06.02 DATE: 01/06/2021 ORDERING PHYSICIAN: Kedar Rosen MD Pre and post bronchodilator studies have excellent technical quality. Forced vital capacity is normal. FEV1 is in proportion. Obstructive index is therefore normal. Expiratory limit of the flow-volume loop is normal. No significant bronchodilator response is identified. Total lung capacity is normal. Residual volume is in proportion. Diffusing capacity is normal. Hemoglobin is acceptable at 14.1. Airway resistance and conductance are normal. IMPRESSION: Normal study. MTDD
== END ==
LOC: M CARPUL 10:32
PROVIDERS: ATTEND Internal Medicine Pulmonary Disease
DX: R06.02 Shortness of breath (principal)

== ENCOUNTER → 2021-03-13 | Outpatient (CLI) | payer MEDICARE, BC, OTHER | LOC: M LAB 09:04 | PROVIDERS: ATTEND Physician Assistant | DX: C61 Malignant neoplasm of prostate (principal) ==

== ENCOUNTER → 2021-03-16 | Outpatient (CLI) | payer MEDICARE, BC, OTHER ==
[2021-03-16 10:13] LABS: C REACTIVE PROTEIN QUANTITATIV < 0.30 MG/DL (0.00-0.30); RHEUMATOID FACTOR QUANT < 10.0 IU/ML (<15.0)
[2021-03-18 17:13] LABS: Lyme Disease IgG Ab 18 kDa Ban Absent (.); Lyme Disease IgG Ab 23 kDa Ban Absent (.); Lyme Disease IgG Ab 28 kDa Ban Absent (.); Lyme Disease IgG Ab 30 kDa Ban Absent (.); Lyme Disease IgG Ab 39 kDa Ban Absent (.); Lyme Disease IgG Ab 41 kDa Ban Absent (.); Lyme Disease IgG Ab 45 kDa Ban Absent (.); Lyme Disease IgG Ab 58 kDa Ban Absent (.); Lyme Disease IgG Ab 66 kDa Ban Absent (.); Lyme Disease IgG Ab 93 kDa Ban Absent (.); Lyme Disease IgG West Blot Int Negative (.); Lyme Disease IgG/IgM Antibodie <0.91 ISR (0.00-0.90); Lyme Disease IgM Ab 23 kDa Ban Absent (.); Lyme Disease IgM Ab 39 kDa Ban Absent (.); Lyme Disease IgM Ab 41 kDa Ban Absent (.); Lyme Disease IgM Ab Quantitati 1.67 index (0.00-0.79); Lyme Disease IgM West Blot Int Negative (.)
== END ==
LOC: M LAB 09:02
DX: M17.11 Unilateral primary osteoarthritis, right knee (principal)

== ENCOUNTER → 2021-03-24 | Outpatient (CLI) | payer MEDICARE, BC, OTHER ==
--- NOTE | 2021-03-25 12:02 | REPVR ---
PROCEDURE INFORMATION: Exam: MR Lumbar Spine Without Contrast Exam date and time: 03/24/2021 4:22 PM Age: 65 years old Clinical indication: Low back pain; Additional info: Lbp TECHNIQUE: Imaging protocol: Multiplanar magnetic resonance images of the lumbar spine without intravenous contrast. COMPARISON: CR SPINE LS COMPLETE 01/19/2019 2:07 PM FINDINGS: Vertebrae: Slight dextroconvex scoliosis. No acute fracture seen. Spinal cord: The conus medullaris ends normally. There is disc desiccation throughout. Slight disc height loss at L3-L4 and L4-L5. L1-L2: Mild disc bulge, facet arthropathy and ligamentum flavum buckling. No stenoses. L2-L3: Mild left eccentric disc bulge as well as mild to moderate facet arthropathy and ligamentum flavum buckling. The central spinal canal remains patent. Left lateral recess stenosis is mild. Mild left neural foraminal stenosis. No significant right neural foraminal narrowing. L3-L4: Mild disc bulge as well as mild to moderate facet arthropathy and ligamentum flavum buckling. The central spinal canal remains patent. Mild bilateral neural foraminal stenoses. L4-L5: Moderate diffuse disc bulge. High-intensity zones in posterior disc margin without measurable focal disc protrusions or extrusions. Moderate facet arthropathy and ligamentum flavum buckling. In combination with prominent dorsal epidural fat there is dpvf-uw-pdisbwbo central spinal canal stenosis. The lateral recesses are narrowed near the L5 nerve roots. Ugvp-mh-ciosbrnr right and mild left neural foraminal stenoses. L5-S1: Igom-vv-nbbrvrbf diffuse disc osteophyte complex. 4 mm component of central soft disc protrusion with high-intensity zone. Moderate right and pxtf-xk-ymxfcwsc left facet arthropathy. There is right ligamentum flavum buckling. The central spinal canal remains patent. The right lateral recess is narrowed near the right S1 nerve root. Gupr-vx-gnkwgkuc bilateral neural foraminal stenoses. Soft tissues: Unremarkable. IMPRESSION: 1. Mild left lateral recess and neural foraminal stenoses at L2-L3. 2. Mild bilateral neural foraminal stenoses at L3-L4. 3. Efby-ta-nubgdhsn central spinal canal stenosis at L4-L5. The lateral recesses are narrowed near the L5 nerve roots. Pugq-kt-jtwiwlhi right and mild left neural foraminal stenoses. 4. Right lateral recess stenosis at L5-S1. Eqmm-la-eqbtntxs bilateral neural foraminal stenoses. Electronically signed by: Earlene Frausto On 03/25/2021 12:02:09 PM
== END ==
LOC: M PLAIMG 15:54
PROVIDERS: ATTEND Family Medicine
DX: M54.5 Low back pain (principal)

== ENCOUNTER → 2021-05-08 | Outpatient (CLI) | payer MEDICARE, BC, OTHER | LOC: M LAB 10:13 | PROVIDERS: ATTEND Physician Assistant | DX: C61 Malignant neoplasm of prostate (principal) ==

== ENCOUNTER → 2021-06-10 | Outpatient (CLI) | payer MEDICARE, BC, OTHER ==
[~2021-06-10] MED LIST changes: +PROHANCE 279.3MG/ML 15ML VIAL As Ordered ONE; +PROHANCE 279.3MG/ML 5ML VIAL As Ordered ONE
--- NOTE | 2021-06-11 23:08 | REPVR ---
PROCEDURE INFORMATION: Exam: MR Head Without and With Contrast Exam date and time: 06/10/2021 4:01 PM Age: 65 years old Clinical indication: Vertigo TECHNIQUE: Imaging protocol: MR of the head without and with intravenous contrast. Contrast material: PROHANCE; Contrast volume: 17 ml; Contrast route: INTRAVENOUS (IV); COMPARISON: NM Bone Scan Whole Body 07/15/2017 10:11 AM FINDINGS: Brain: Mild nonspecific T2/FLAIR hyperintensities of the periventricular and deep subcortical white matter, most likely secondary to chronic small vessel ischemic change. No intracranial hemorrhage or extra-axial fluid collection. No evidence of mass effect or midline shift. No restricted diffusion to suggest acute infarct. No abnormal intracranial enhancement. Cerebral ventricles: No ventriculomegaly. Bones/joints: Unremarkable. Paranasal sinuses: Normal as visualized. No acute sinusitis. Mastoid air cells: No mastoid effusion. Orbital cavity: Unremarkable. Soft tissues: Unremarkable. IMPRESSION: 1. No acute intracranial pathology. 2. Chronic findings, as above. Electronically signed by: Genaro Ramos On 06/11/2021 23:07:52 PM
== END ==
LOC: M RAD 14:43
PROVIDERS: ATTEND Family Medicine
DX: R42 Dizziness and giddiness (principal)
CPT/HCPCS: 70553; A9576

== ENCOUNTER → 2021-07-08 | Outpatient (CLI) | payer MEDICARE, BC, OTHER ==
[~2021-07-08] MED LIST changes: -OMEP-221 PO; +OMEP40CA5 PO; -PROHANCE 279.3MG/ML 15ML VIAL As Ordered ONE; -PROHANCE 279.3MG/ML 5ML VIAL As Ordered ONE
[2021-07-08 09:45] LABS: HEMATOCRIT 40.6 % (42.0-52.0); HEMOGLOBIN 14.2 g/dl (13.5-17.5); MEAN CORPUSCULAR HEMOGLOBIN 32.4 pg (27.0-33.0); MEAN CORPUSCULAR VOLUME 92.7 fl (80.0-96.0); PLATELET COUNT, AUTOMATED 266 10^3/uL (150-450); RED BLOOD COUNT 4.38 10^6/uL (4.30-6.10); WHITE BLOOD COUNT 5.8 10^3/uL (4.0-10.0)
[2021-07-08 10:10] LABS: ALBUMIN 3.8 GM/DL (3.2-5.2); ALT/SGPT 30 U/L (12-78); BILIRUBIN,TOTAL 0.5 MG/DL (0.2-1.0); BLOOD UREA NITROGEN 12 MG/DL (7-18); CARBON DIOXIDE LEVEL 30 MEQ/L (21-32); CHLORIDE LEVEL 100 MEQ/L (98-107); CREATININE FOR GFR 0.94 MG/DL (0.70-1.30); GLOMERULAR FILTRATION RATE > 60.0 (>49); GLUCOSE, FASTING 107 MG/DL (70-100); POTASSIUM SERUM 4.3 MEQ/L (3.5-5.1); SODIUM LEVEL 134 MEQ/L (136-145); TOTAL PROTEIN 7.1 GM/DL (6.4-8.2)
[2021-07-08 10:17] LABS: ERYTHROCYTE SEDIMENTATION RATE 13 mm/hr (0-20)
== END ==
LOC: M LAB 09:20
PROVIDERS: ATTEND Internal Medicine Gastroenterology
DX: K50.919 Crohn's disease, unspecified, with unspecified complications (principal); R10.9 Unspecified abdominal pain

== ENCOUNTER → 2021-09-30 | Outpatient (CLI) | payer MEDICARE, BC, OTHER ==
[2021-10-01 18:07] LABS: PSA TOTAL 0.2 ng/mL (0.0-4.0)
== END ==
LOC: M LAB 11:52
PROVIDERS: ATTEND Urology
DX: C61 Malignant neoplasm of prostate (principal)

== ENCOUNTER 2021-12-02 12:32 | Observation (INO) | payer MEDICARE, BC, OTHER ==
[~2021-12-02] VITALS: Ht 180.3 cm; Wt 90.9 kg
[2021-12-02] MEDS ORDERED: HUMI40IN2 SQ (12:42)
[2021-12-02] MEDS ORDERED: LISI40TA4 PO (12:42)
[2021-12-02] MEDS ORDERED: AMLO1TAB24 PO (12:42)
[2021-12-02] MEDS ORDERED: MELO15TA28 PO (12:42)
[2021-12-02] MEDS ORDERED: ACETAMINOPHEN 325 MG TAB PO ONE (13:35)
[2021-12-02 13:44] LABS: BASO % 0.4 % (0.0-1.0); EOS # 0.1 10^3/uL (0.0-0.5); EOS % 1.2 % (0.0-3.0); HEMATOCRIT 36.9 % (42.0-52.0); LYMPH # 1.6 10^3/uL (1.5-5.0); LYMPH % 23.1 % (24.0-44.0); MEAN CORPUSCULAR HGB CONC 35.2 g/dl (32.0-36.5); MEAN CORPUSCULAR VOLUME 93.7 fl (80.0-96.0); MONO # 0.7 10^3/uL (0.0-0.8); MONO % 9.6 % (2.0-8.0); NEUTROPHILS # 4.5 10^3/uL (1.5-8.5); NEUTROPHILS % 65.1 % (36.0-66.0); PLATELET COUNT, AUTOMATED 271 10^3/uL (150-450); RED BLOOD COUNT 3.94 10^6/uL (4.30-6.10); WHITE BLOOD COUNT 6.9 10^3/uL (4.0-10.0)
[2021-12-02 14:06] LABS: CK-MB VALUE MASS 1.3 NG/ML (<3.6); CPK CREATINE PHOSPHOKINASE 75 U/L (39-308); MB/CK RELATIVE INDEX 1.73 (< OR =4)
[2021-12-02 14:13] LABS: BLOOD UREA NITROGEN 11 MG/DL (7-18); CARBON DIOXIDE LEVEL 26 MEQ/L (21-32); CHLORIDE LEVEL 103 MEQ/L (98-107); GLOMERULAR FILTRATION RATE > 60.0 (>49); GLUCOSE, FASTING 114 MG/DL (70-100); MAGNESIUM LEVEL 2.2 MG/DL (1.8-2.4); POTASSIUM SERUM 3.9 MEQ/L (3.5-5.1); SODIUM LEVEL 134 MEQ/L (136-145); THYROID STIMULATING HORMONE 0.706 uIU/ML (0.358-3.740)
[2021-12-02 14:50] LABS: RSV AMPLIFICATION NEGATIVE (NEGATIVE)
[2021-12-02] MEDS ORDERED: KETOROLAC 30 MG/ML 1ML VIAL IV ONE (15:20)
[2021-12-02] MEDS ORDERED: amLODIPine 5 MG TAB PO ONE (16:00)
[2021-12-02] MEDS ORDERED: HOME MED LIST COMPLETE! XX SCH (17:05)
[2021-12-02] MEDS ORDERED: METOCLOPRAMIDE INJ 10MG/2ML VIAL (J2765 PER 1) IV ONE (17:40)
[2021-12-02 20:35] VITALS: BP 122/80
[2021-12-02] MEDS: SIMVASTATIN 40 MG TAB PO SCH (22:04)
[2021-12-02] MEDS: ACETAMINOPHEN TAB 650MG DOSE (2X325MG) PO PRN (22:04)
[2021-12-02] MEDS: KETOROLAC 30 MG/ML 1ML VIAL IV SCH (22:04)
[2021-12-03] MEDS: KETOROLAC 30 MG/ML 1ML VIAL IV SCH ×4 (03:02→21:36)
[2021-12-03 05:40] VITALS: BP_SYST 126; BP_SYST 129; BP_SYST 152; BP_DIAS 73; BP_DIAS 80; BP_DIAS 88
[2021-12-03 06:00] VITALS: BP 121/78
[2021-12-03 06:21] LABS: BASO % 0.6 % (0.0-1.0); EOS # 0.2 10^3/uL (0.0-0.5); EOS % 3.8 % (0.0-3.0); HEMATOCRIT 36.2 % (42.0-52.0); HEMOGLOBIN 12.7 g/dl (13.5-17.5); LYMPH # 1.5 10^3/uL (1.5-5.0); MEAN CORPUSCULAR HEMOGLOBIN 33.3 pg (27.0-33.0); MEAN CORPUSCULAR HGB CONC 35.1 g/dl (32.0-36.5); MONO # 0.7 10^3/uL (0.0-0.8); MONO % 13.1 % (2.0-8.0); NEUTROPHILS # 2.7 10^3/uL (1.5-8.5); NEUTROPHILS % 52.7 % (36.0-66.0); PLATELET COUNT, AUTOMATED 243 10^3/uL (150-450); RED BLOOD COUNT 3.81 10^6/uL (4.30-6.10)
[2021-12-03 06:49] LABS: BLOOD UREA NITROGEN 13 MG/DL (7-18); CARBON DIOXIDE LEVEL 26 MEQ/L (21-32); CHLORIDE LEVEL 103 MEQ/L (98-107); CREATININE FOR GFR 0.93 MG/DL (0.70-1.30); GLOMERULAR FILTRATION RATE > 60.0 (>49); GLUCOSE, FASTING 102 MG/DL (70-100); POTASSIUM SERUM 4.6 MEQ/L (3.5-5.1); SODIUM LEVEL 137 MEQ/L (136-145)
[2021-12-03] MEDS: ASPIRIN 81MG ENTERIC TABLET PO SCH (08:37)
[2021-12-03] MEDS: lisinopriL 40MG TAB PO SCH (08:37)
[2021-12-03] MEDS: amLODIPine 5 MG TAB PO SCH (08:38)
[2021-12-03] MEDS: OMEPRAZOLE 20MG CAP PO SCH (08:38)
[2021-12-03 14:00] VITALS: BP 135/86
[2021-12-03] MEDS: ACETAMINOPHEN TAB 650MG DOSE (2X325MG) PO PRN ×2 (14:07→21:37)
[2021-12-03 14:26] VITALS: BP_SYST 141; BP_SYST 142; BP_SYST 144; BP_DIAS 79; BP_DIAS 81; BP_DIAS 84
[2021-12-03] MEDS: SIMVASTATIN 40 MG TAB PO SCH (21:35)
[2021-12-03 22:00] VITALS: BP 125/77
[2021-12-04] MEDS: KETOROLAC 30 MG/ML 1ML VIAL IV SCH ×2 (03:30→08:40)
[2021-12-04 06:00] VITALS: BP 125/77
[2021-12-04 06:35] LABS: BASO % 0.4 % (0.0-1.0); EOS # 0.2 10^3/uL (0.0-0.5); EOS % 3.1 % (0.0-3.0); HEMATOCRIT 37.1 % (42.0-52.0); LYMPH # 1.7 10^3/uL (1.5-5.0); LYMPH % 34.6 % (24.0-44.0); MEAN CORPUSCULAR HEMOGLOBIN 33.2 pg (27.0-33.0); MEAN CORPUSCULAR VOLUME 94.6 fl (80.0-96.0); MONO # 0.5 10^3/uL (0.0-0.8); MONO % 10.1 % (2.0-8.0); NEUTROPHILS # 2.5 10^3/uL (1.5-8.5); NEUTROPHILS % 51.2 % (36.0-66.0); PLATELET COUNT, AUTOMATED 271 10^3/uL (150-450); RED BLOOD COUNT 3.92 10^6/uL (4.30-6.10); WHITE BLOOD COUNT 4.9 10^3/uL (4.0-10.0)
[2021-12-04 06:58] LABS: BLOOD UREA NITROGEN 13 MG/DL (7-18); CALCIUM LEVEL 8.9 MG/DL (8.8-10.2); CARBON DIOXIDE LEVEL 28 MEQ/L (21-32); CHLORIDE LEVEL 102 MEQ/L (98-107); CREATININE FOR GFR 0.97 MG/DL (0.70-1.30); GLOMERULAR FILTRATION RATE > 60.0 (>49); GLUCOSE, FASTING 105 MG/DL (70-100); POTASSIUM SERUM 4.5 MEQ/L (3.5-5.1); SODIUM LEVEL 134 MEQ/L (136-145)
[2021-12-04] MEDS: ASPIRIN 81MG ENTERIC TABLET PO SCH (08:39)
[2021-12-04] MEDS: OMEPRAZOLE 20MG CAP PO SCH (08:40)
[2021-12-04 08:41] VITALS: BP 123/80
[2021-12-04] MEDS: lisinopriL 40MG TAB PO SCH (08:41)
[2021-12-04] MEDS: amLODIPine 5 MG TAB PO SCH (08:41)
== END 2021-12-04 10:23 | disposition home or self-care (01) ==
LOC: M ED 12:32 → M ED INP 12:33 → INTOOBSV 15:59 → UNDOADMOB 15:59 → M ED INP 15:59 → M MSPAV 20:35 → M ED INP 20:35 → M MSPAV 20:35
PROVIDERS: ADMIT Internal Medicine Nephrology; ATTEND Internal Medicine Nephrology
DX: H81.10 Benign paroxysmal vertigo, unspecified ear (principal); I10 Essential (primary) hypertension; E78.5 Hyperlipidemia, unspecified; K50.90 Crohn's disease, unspecified, without complications; K52.9 Noninfective gastroenteritis and colitis, unspecified; C61 Malignant neoplasm of prostate; Z90.79 Acquired absence of other genital organ(s); Z92.3 Personal history of irradiation; K22.70 Barrett's esophagus without dysplasia; I44.0 Atrioventricular block, first degree; J01.01 Acute recurrent maxillary sinusitis; H69.91 Unspecified Eustachian tube disorder, right ear; Z96.22 Myringotomy tube(s) status; M54.2 Cervicalgia; R51.9 Headache, unspecified; G89.29 Other chronic pain; M25.561 Pain in right knee; M25.562 Pain in left knee; Z86.16 Personal history of COVID-19; Z79.899 Other long term (current) drug therapy; Z79.82 Long term (current) use of aspirin; Z88.1 Allergy status to other antibiotic agents
CPT/HCPCS: 36415; 70450; 71045; 80048; 82550; 82553; 83735; 84439; 84443; 84484; 85025; 87631; 93005; 93041; 94760; 96374; 96375; 96376; 97112; 97161; 99285; G0378; J1885; J2765

== ENCOUNTER 2021-12-10 10:29 | Outpatient (RCR) | payer MEDICARE, BC, OTHER ==
[~2021-12-10 10:29] MED LIST changes: +AMLO1TAB24 PO; +HUMI40IN2 SQ; +MELO15TA28 PO
== END 2021-12-15 ==
LOC: M PT 10:29
PROVIDERS: ATTEND Internal Medicine Nephrology
DX: H81.90 Unspecified disorder of vestibular function, unspecified ear (principal); R55 Syncope and collapse

== ENCOUNTER → 2021-12-30 | Outpatient (CLI) | payer MEDICARE, BC, OTHER ==
[2021-12-30 15:00] LABS: ALBUMIN 3.9 GM/DL (3.2-5.2); ALT/SGPT 22 U/L (12-78); BILIRUBIN,TOTAL 0.5 MG/DL (0.2-1.0); BLOOD UREA NITROGEN 12 MG/DL (7-18); CALCIUM LEVEL 9.4 MG/DL (8.8-10.2); CARBON DIOXIDE LEVEL 25 MEQ/L (21-32); CHLORIDE LEVEL 102 MEQ/L (98-107); CREATININE FOR GFR 0.96 MG/DL (0.70-1.30); GLOMERULAR FILTRATION RATE > 60.0 (>49); GLUCOSE, FASTING 106 MG/DL (70-100); POTASSIUM SERUM 4.4 MEQ/L (3.5-5.1); SODIUM LEVEL 135 MEQ/L (136-145); TOTAL PROTEIN 7.3 GM/DL (6.4-8.2)
[2021-12-31 21:09] LABS: TESTOSTERONE FREE (DIRECT) 4.4 pg/mL (6.6-18.1)
== END ==
LOC: M LAB 13:56
PROVIDERS: ATTEND Urology
DX: C61 Malignant neoplasm of prostate (principal)

== ENCOUNTER 2022-01-06 13:31 | Outpatient (RCR) | payer MEDICARE, BC, OTHER | END 2022-01-14 | LOC: M PT 13:31 | PROVIDERS: ATTEND Internal Medicine Nephrology | DX: H81.90 Unspecified disorder of vestibular function, unspecified ear (principal) ==

== ENCOUNTER → 2022-01-14 | Outpatient (CLI) | payer MEDICARE, BC, OTHER ==
[2022-01-14 11:40] LABS: HEMOGLOBIN 13.6 g/dl (13.5-17.5); MEAN CORPUSCULAR HEMOGLOBIN 33.3 pg (27.0-33.0); MEAN CORPUSCULAR HGB CONC 34.9 g/dl (32.0-36.5); MEAN CORPUSCULAR VOLUME 95.6 fl (80.0-96.0); PLATELET COUNT, AUTOMATED 304 10^3/uL (150-450); RED BLOOD COUNT 4.08 10^6/uL (4.30-6.10); WHITE BLOOD COUNT 6.4 10^3/uL (4.0-10.0)
[2022-01-14 11:57] LABS: ERYTHROCYTE SEDIMENTATION RATE 27 mm/hr (0-20)
[2022-01-14 12:44] LABS: ALBUMIN 3.9 GM/DL (3.2-5.2); ALT/SGPT 26 U/L (12-78); BILIRUBIN,TOTAL 0.5 MG/DL (0.2-1.0); BLOOD UREA NITROGEN 10 MG/DL (7-18); CALCIUM LEVEL 9.2 MG/DL (8.8-10.2); CARBON DIOXIDE LEVEL 27 MEQ/L (21-32); CHLORIDE LEVEL 103 MEQ/L (98-107); CREATININE FOR GFR 0.94 MG/DL (0.70-1.30); GLOMERULAR FILTRATION RATE > 60.0 (>49); GLUCOSE, FASTING 120 MG/DL (70-100); MAGNESIUM LEVEL 2.3 MG/DL (1.8-2.4); POTASSIUM SERUM 4.7 MEQ/L (3.5-5.1); SODIUM LEVEL 137 MEQ/L (136-145); TOTAL 25(OH) VITAMIN D 40.9 NG/ML (30.0-100.0); TOTAL PROTEIN 7.1 GM/DL (6.4-8.2); VITAMIN B12 LEVEL 440 PG/ML (247-911)
== END ==
LOC: M LAB 11:00
PROVIDERS: ATTEND Internal Medicine Gastroenterology
DX: E53.8 Deficiency of other specified B group vitamins (principal)

== ENCOUNTER 2022-02-15 10:29 | Outpatient (RCR) | payer MEDICARE, BC, OTHER ==
[2022-02-18] MEDS ORDERED: BUDE3CAP (12:13)
[2022-02-18] MEDS ORDERED: AMLO1TAB25 PO (12:17)
[2022-02-21] MEDS ORDERED: MECL1TAB31 PO (14:54)
[2022-02-21] MEDS ORDERED: physical therapy (14:54)
== END 2022-03-17 ==
LOC: M PT 10:29
PROVIDERS: ATTEND Orthopaedic Surgery
DX: M25.561 Pain in right knee (principal)

== ENCOUNTER 2022-02-18 09:15 | Emergency (ER) | payer MEDICARE, BC, OTHER ==
[~2022-02-18] VITALS: Ht 180.3 cm; Wt 85.9 kg
[2022-02-18 10:21] LABS: BASO % 0.4 % (0.0-1.0); EOS # 0.1 10^3/uL (0.0-0.5); HEMATOCRIT 39.9 % (42.0-52.0); HEMOGLOBIN 13.9 g/dl (13.5-17.5); LYMPH # 2.1 10^3/uL (1.5-5.0); LYMPH % 38.6 % (24.0-44.0); MEAN CORPUSCULAR HEMOGLOBIN 32.7 pg (27.0-33.0); MEAN CORPUSCULAR HGB CONC 34.8 g/dl (32.0-36.5); MEAN CORPUSCULAR VOLUME 93.9 fl (80.0-96.0); MONO # 0.6 10^3/uL (0.0-0.8); MONO % 10.8 % (2.0-8.0); NEUTROPHILS # 2.6 10^3/uL (1.5-8.5); PLATELET COUNT, AUTOMATED 310 10^3/uL (150-450); RED BLOOD COUNT 4.25 10^6/uL (4.30-6.10); WHITE BLOOD COUNT 5.5 10^3/uL (4.0-10.0)
[2022-02-18 10:52] LABS: CPK CREATINE PHOSPHOKINASE 59 U/L (39-308); MB/CK RELATIVE INDEX 1.69 (< OR =4)
[2022-02-18 11:10] LABS: ALBUMIN 3.8 GM/DL (3.2-5.2); ALT/SGPT 24 U/L (12-78); BILIRUBIN,DIRECT 0.1 MG/DL (0.0-0.2); BILIRUBIN,TOTAL 0.4 MG/DL (0.2-1.0); BLOOD UREA NITROGEN 9 MG/DL (7-18); CALCIUM LEVEL 8.9 MG/DL (8.8-10.2); CARBON DIOXIDE LEVEL 29 MEQ/L (21-32); CHLORIDE LEVEL 95 MEQ/L (98-107); CREATININE FOR GFR 0.87 MG/DL (0.70-1.30); GLOMERULAR FILTRATION RATE > 60.0 (>49); GLUCOSE, FASTING 102 MG/DL (70-100); LIPASE 190 U/L (73-393); NT-PRO BNP 48 PG/ML (<125); POTASSIUM SERUM 4.6 MEQ/L (3.5-5.1); SODIUM LEVEL 130 MEQ/L (136-145); TOTAL PROTEIN 7.5 GM/DL (6.4-8.2)
[2022-02-18] MEDS ORDERED: BUDE3CAP (12:13)
[2022-02-18] MEDS ORDERED: AMLO1TAB25 PO (12:17)
[2022-02-18 12:35] VITALS: BP 156/82
== END 2022-02-18 12:39 | disposition home or self-care (01) ==
LOC: M ED 09:15
DX: I10 Essential (primary) hypertension (principal); E78.5 Hyperlipidemia, unspecified; K50.90 Crohn's disease, unspecified, without complications; Z86.16 Personal history of COVID-19; Z88.7 Allergy status to serum and vaccine

== ENCOUNTER 2022-02-21 08:47 | Emergency (ER) | payer MEDICARE, BC, OTHER ==
[~2022-02-21] VITALS: Ht 180.3 cm; Wt 86.4 kg
[~2022-02-21 08:47] MED LIST changes: +AMLO1TAB25 PO; +BUDE3CAP
[2022-02-21] MEDS ORDERED: NS 1,000 ML IV ONE ×2 (10:55→14:15)
[2022-02-21] MEDS ORDERED: MECLIZINE 25 MG TABLET PO ONE (10:55)
[2022-02-21 11:32] LABS: BASO % 0.4 % (0.0-1.0); EOS # 0.1 10^3/uL (0.0-0.5); EOS % 1.5 % (0.0-3.0); HEMOGLOBIN 14.4 g/dl (13.5-17.5); LYMPH # 1.9 10^3/uL (1.5-5.0); MEAN CORPUSCULAR HEMOGLOBIN 32.3 pg (27.0-33.0); MEAN CORPUSCULAR HGB CONC 34.3 g/dl (32.0-36.5); MEAN CORPUSCULAR VOLUME 94.2 fl (80.0-96.0); MONO # 0.7 10^3/uL (0.0-0.8); MONO % 9.9 % (2.0-8.0); NEUTROPHILS # 4.5 10^3/uL (1.5-8.5); NEUTROPHILS % 61.7 % (36.0-66.0); PLATELET COUNT, AUTOMATED 327 10^3/uL (150-450); RED BLOOD COUNT 4.46 10^6/uL (4.30-6.10); WHITE BLOOD COUNT 7.3 10^3/uL (4.0-10.0)
[2022-02-21 11:46] LABS: INR 0.9; PROTHROMBIN TIME 12.6 SECONDS (12.7-14.5)
[2022-02-21 11:47] LABS: PARTIAL THROMBOPLASTIN TIME 32.7 SECONDS (25.9-37.0)
[2022-02-21 12:14] LABS: CPK CREATINE PHOSPHOKINASE 63 U/L (39-308); MB/CK RELATIVE INDEX 1.59 (< OR =4)
[2022-02-21 12:20] LABS: FREE THYROXINE INDEX 4.2 % (1.4-3.8); MAGNESIUM LEVEL 2.3 MG/DL (1.8-2.4); THYROID STIMULATING HORMONE 0.781 uIU/ML (0.358-3.740); THYROXINE (T4) 11.4 UG/DL (4.5-12.0)
[2022-02-21] MEDS ORDERED: diazePAM 10MG/2ML SYRINGE (J3360 PER 5MG) IV ONE (12:40)
[2022-02-21] MEDS ORDERED: KETOROLAC 30 MG/ML 1ML VIAL IV ONE (12:40)
[2022-02-21] MEDS ORDERED: CIPROFLOXACIN 400 MG in IV 1 EA IV ONE (14:05)
[2022-02-21] MEDS ORDERED: metroNIDAZOLE 500 MG in IV 1 EA IV ONE (14:05)
[2022-02-21] MEDS ORDERED: MECL1TAB31 PO (14:54)
[2022-02-21] MEDS ORDERED: physical therapy (14:54)
[2022-02-21 16:15] VITALS: BP 171/92
== END 2022-02-21 16:45 | disposition home or self-care (01) ==
LOC: M ED 08:47
DX: R42 Dizziness and giddiness (principal); I10 Essential (primary) hypertension; E78.5 Hyperlipidemia, unspecified; K50.90 Crohn's disease, unspecified, without complications; Z86.16 Personal history of COVID-19; Z88.7 Allergy status to serum and vaccine
CPT/HCPCS: 70450; 80047; 82550; 82553; 83735; 84436; 84443; 84479; 84484; 85025; 85610; 85730; 93005; 96361; 96374; 99284; J1885; J3360

== ENCOUNTER → 2022-03-08 | Outpatient (CLI) | payer MEDICARE, BC, OTHER ==
[~2022-03-08] MED LIST changes: +MECL1TAB31 PO; +physical therapy
== END ==
LOC: M RAD 13:55
PROVIDERS: ATTEND Physician Assistant Medical
DX: J32.9 Chronic sinusitis, unspecified (principal)

== ENCOUNTER → 2022-03-17 | Outpatient (RCR) | payer MEDICARE, BC, OTHER | LOC: M PT 02-24 10:22 | PROVIDERS: ATTEND Physician Assistant | DX: H81.10 Benign paroxysmal vertigo, unspecified ear (principal) ==

== ENCOUNTER 2022-03-24 10:39 | Outpatient (RCR) | payer MEDICARE, BC, OTHER | END 2022-04-16 | LOC: M PT 10:39 | PROVIDERS: ATTEND Physician Assistant | DX: H81.10 Benign paroxysmal vertigo, unspecified ear (principal) ==

== ENCOUNTER → 2022-06-17 | Outpatient (CLI) | payer MEDICARE, BC, OTHER | LOC: M LAB 14:06 | PROVIDERS: ATTEND Urology | DX: C61 Malignant neoplasm of prostate (principal); Z12.5 Encounter for screening for malignant neoplasm of prostate | CPT/HCPCS: 36415; 84403; G0103 ==

== ENCOUNTER → 2022-08-30 | Outpatient (REF) | payer MEDICARE, BC, OTHER | LOC: M WUC 09:22 | PROVIDERS: ATTEND Student in an Organized Health Care Education/Training Program | DX: J02.9 Acute pharyngitis, unspecified (principal) ==

== ENCOUNTER → 2022-08-31 | Outpatient (REF) | payer MEDICARE, BC, OTHER | LOC: M LAB REF 17:22 | PROVIDERS: ATTEND Physician Assistant Medical | DX: J00 Acute nasopharyngitis [common cold] (principal) ==

== ENCOUNTER 2022-09-17 08:20 | Emergency (ER) | payer MEDICARE, BC, OTHER ==
[~2022-09-17] VITALS: Ht 180.3 cm; Wt 80.5 kg
[2022-09-17 09:21] LABS: BASO % 0.5 % (0.0-1.0); EOS # 0.1 10^3/uL (0.0-0.5); EOS % 2.3 % (0.0-3.0); HEMATOCRIT 42.2 % (42.0-52.0); HEMOGLOBIN 14.5 g/dl (13.5-17.5); LYMPH # 2.2 10^3/uL (1.5-5.0); LYMPH % 38.7 % (24.0-44.0); MEAN CORPUSCULAR HEMOGLOBIN 32.1 pg (27.0-33.0); MEAN CORPUSCULAR HGB CONC 34.4 g/dl (32.0-36.5); MEAN CORPUSCULAR VOLUME 93.4 fl (80.0-96.0); MONO # 0.5 10^3/uL (0.0-0.8); MONO % 8.8 % (2.0-8.0); NEUTROPHILS # 2.7 10^3/uL (1.5-8.5); PLATELET COUNT, AUTOMATED 298 10^3/uL (150-450); RED BLOOD COUNT 4.52 10^6/uL (4.30-6.10); WHITE BLOOD COUNT 5.6 10^3/uL (4.0-10.0)
[2022-09-17 09:35] LABS: INR 0.99; PROTHROMBIN TIME 13.3 SECONDS (12.5-14.5)
[2022-09-17 09:36] LABS: PARTIAL THROMBOPLASTIN TIME 30.5 SECONDS (24.8-34.2)
[2022-09-17 09:43] LABS: ALBUMIN 4.2 G/DL (3.2-5.2); BILIRUBIN,DIRECT 0.2 MG/DL (<0.4); BILIRUBIN,TOTAL 0.8 MG/DL (0.3-1.2); TOTAL PROTEIN 7.9 G/DL (5.7-8.2)
[2022-09-17] MEDS ORDERED: ONDANSETRON 4MG 2ML VIAL IV ONE (11:40)
[2022-09-17] MEDS ORDERED: MORPHINE 4 MG/ML 1ML VIAL IV ONE (11:40)
[2022-09-17] MEDS ORDERED: NS 1,000 ML IV ONE (11:40)
[2022-09-17] MEDS: GASTROGRAFIN SOLUTION 30ML PO SCH ×2 (12:15→12:45)
[2022-09-17] MEDS ORDERED: SUCRALFATE 1 GM TAB PO ONE (13:05)
[2022-09-17] MEDS ORDERED: GI COCKTAIL 50ML BTL(HYOSCYAMINE/MAALOX/LIDOCAINE VISCOUS)(1:3:1) PO ONE (13:05)
[2022-09-17] MEDS ORDERED: PANTOPRAZOLE 40MG VIAL IV ONE (13:05)
[2022-09-17] MEDS ORDERED: ISOVUE-370 76% 100ML VIAL As Ordered ONE (13:16)
[2022-09-17 15:10] VITALS: BP 159/77
[2022-09-17] MEDS ORDERED: metroNIDAZOLE (FLAGYL) 500MG TABLET PO ONE (15:50)
[2022-09-17] MEDS ORDERED: METR-265 PO (15:51)
[2022-09-17] MEDS ORDERED: BUDE3CAP PO (15:51)
[2022-09-17] MEDS ORDERED: HYDR-3713 PO (15:51)
== END 2022-09-17 16:12 | disposition home or self-care (01) ==
LOC: M ED 08:20
DX: R10.9 Unspecified abdominal pain (principal); K50.90 Crohn's disease, unspecified, without complications; R19.7 Diarrhea, unspecified; I10 Essential (primary) hypertension; E78.5 Hyperlipidemia, unspecified; Z88.1 Allergy status to other antibiotic agents; Z79.82 Long term (current) use of aspirin; Z79.899 Other long term (current) drug therapy
CPT/HCPCS: 74177; 80047; 80076; 81001; 83605; 83690; 85025; 85610; 85730; 96361; 96374; 96375; 99284; C9113; J2270; J2405; Q9963; Q9967

== ENCOUNTER → 2022-10-20 | Outpatient (CLI) | payer MEDICARE, BC, OTHER ==
[~2022-10-20] MED LIST changes: +BUDE3CAP PO; +HYDR-3713 PO
[2022-10-20 11:01] LABS: PROSTATIC SPECIFIC AG MONITOR 0.35 NG/ML (< 4.00)
== END ==
LOC: M LAB 09:37
PROVIDERS: ATTEND Urology
DX: C61 Malignant neoplasm of prostate (principal)

== ENCOUNTER 2023-02-14 08:25 | Observation (INO) | payer MEDICARE, BC, OTHER ==
[~2023-02-14] VITALS: Ht 180.3 cm; Wt 87.3 kg
[2023-02-14 09:05] LABS: BASO % 0.6 % (0.0-1.0); EOS # 0.2 10^3/uL (0.0-0.5); EOS % 3.3 % (0.0-3.0); HEMATOCRIT 43.9 % (42.0-52.0); HEMOGLOBIN 14.9 g/dl (13.5-17.5); LYMPH % 31.1 % (24.0-44.0); MEAN CORPUSCULAR HEMOGLOBIN 31.7 pg (27.0-33.0); MEAN CORPUSCULAR HGB CONC 33.9 g/dl (32.0-36.5); MEAN CORPUSCULAR VOLUME 93.4 fl (80.0-96.0); MONO # 0.7 10^3/uL (0.0-0.8); NEUTROPHILS # 3.6 10^3/uL (1.5-8.5); NEUTROPHILS % 54.5 % (36.0-66.0); PLATELET COUNT, AUTOMATED 281 10^3/uL (150-450); WHITE BLOOD COUNT 6.6 10^3/uL (4.0-10.0)
[2023-02-14 09:31] LABS: BLOOD UREA NITROGEN 11 MG/DL (9-23); CALCIUM LEVEL 9.1 MG/DL (8.3-10.6); CARBON DIOXIDE LEVEL 27 MMOL/L (20-31); CHLORIDE LEVEL 99 MMOL/L (98-107); CREATININE FOR GFR 0.79 MG/DL (0.70-1.30); GLOMERULAR FILTRATION RATE > 60.0 (>49); GLUCOSE, FASTING 107 MG/DL (74-106); POTASSIUM SERUM 4.7 MMOL/L (3.5-5.1); SODIUM LEVEL 135 MMOL/L (136-145)
[2023-02-14 09:41] LABS: INR 0.96
[2023-02-14 09:42] LABS: PARTIAL THROMBOPLASTIN TIME 29.8 SECONDS (24.8-34.2)
[2023-02-14 11:09] LABS: CHOLESTEROL LEVEL 221 MG/DL (<200); HDL CHOLESTEROL 53.8 MG/DL (>40); LDL CHOLESTEROL 112.4 MG/DL (<100); NON-HDL-C 167.2 MG/DL; TRIGLYCERIDES LEVEL 274 MG/DL (<150)
[2023-02-14] MEDS ORDERED: ACETAMINOPHEN 500 MG TAB PO ONE (11:15)
[2023-02-14] MEDS ORDERED: DICYCLOMINE 10 MG CAP PO ONE (11:15)
[2023-02-14] MEDS ORDERED: DICYCLOMINE 10 MG CAP PO PRN ×2 (11:30→17:30)
[2023-02-14 14:35] VITALS: BP 162/88; TEMP 97.4; O2SAT 96
[2023-02-14] MEDS ORDERED: MED REC IN PROGRESS XX SCH (15:40)
[2023-02-14 16:00] VITALS: BP 182/87; TEMP 97.2; O2SAT 99
[2023-02-14] MEDS ORDERED: RISA360W SUBQ (16:05)
[2023-02-14] MEDS ORDERED: FAMO20TA5 PO (16:10)
[2023-02-14] MEDS ORDERED: DICY-61 PO (16:10)
[2023-02-14] MEDS ORDERED: GABA-1171 PO (16:10)
[2023-02-14] MEDS ORDERED: PREDOPD OU (16:10)
[2023-02-14] MEDS ORDERED: HOME MED LIST COMPLETE! XX SCH (16:20)
[2023-02-14] MEDS ORDERED: ISOVUE-370 76% 100ML VIAL As Ordered ONE (18:00)
[2023-02-14 18:25] VITALS: BP 198/96
[2023-02-14] MEDS: GABAPENTIN 100 MG CAP PO SCH (20:22)
[2023-02-14] MEDS: prednisoLONE ACET 1% OPHTH SUSP 5ML OU SCH (20:22)
[2023-02-14] MEDS: FAMOTIDINE 20 MG TAB PO SCH (20:22)
[2023-02-14] MEDS ORDERED: SIMVASTATIN 40 MG TAB PO SCH (21:00)
[2023-02-14 21:08] VITALS: BP 164/74; TEMP 96.8; O2SAT 96
[2023-02-15 00:34] VITALS: BP 116/74; TEMP 96.7; O2SAT 97
[2023-02-15 04:18] VITALS: BP 126/74; TEMP 97.8; O2SAT 98
[2023-02-15] MEDS ORDERED: CALCIUM CARBONATE 500 MG CHEW U/D PO ONE (04:50)
[2023-02-15 08:30] VITALS: BP 156/72; TEMP 97.7; O2SAT 99
[2023-02-15] MEDS ORDERED: lisinopriL 40MG TAB PO SCH (09:00)
[2023-02-15] MEDS ORDERED: MULTIVITAMINS/MINERALS THERAP 1 TAB PO SCH (09:00)
[2023-02-15] MEDS: GABAPENTIN 100 MG CAP PO SCH (09:14)
[2023-02-15] MEDS: FAMOTIDINE 20 MG TAB PO SCH (09:14)
[2023-02-15] MEDS: prednisoLONE ACET 1% OPHTH SUSP 5ML OU SCH (09:14)
[2023-02-15 12:00] VITALS: BP 153/77; TEMP 97.9; O2SAT 98
== END 2023-02-15 14:15 | disposition home or self-care (01) ==
LOC: M ED 08:25 → M ED INP 08:26 → ENRESERV 13:47 → M PCU 14:38
PROVIDERS: ADMIT General Practice; ATTEND General Practice
DX: I61.8 Other nontraumatic intracerebral hemorrhage (principal); R20.2 Paresthesia of skin; R20.0 Anesthesia of skin; I10 Essential (primary) hypertension; E78.5 Hyperlipidemia, unspecified; K51.90 Ulcerative colitis, unspecified, without complications; K22.70 Barrett's esophagus without dysplasia; Z85.46 Personal history of malignant neoplasm of prostate; Z90.79 Acquired absence of other genital organ(s); R10.9 Unspecified abdominal pain; J01.01 Acute recurrent maxillary sinusitis; H69.90 Unspecified Eustachian tube disorder, unspecified ear; H81.10 Benign paroxysmal vertigo, unspecified ear; I44.0 Atrioventricular block, first degree; H81.8X9 Other disorders of vestibular function, unspecified ear; R51.9 Headache, unspecified; Z86.16 Personal history of COVID-19; Z79.899 Other long term (current) drug therapy; Z79.82 Long term (current) use of aspirin
CPT/HCPCS: 70450; 70498; 70544; 70551; 71045; 80048; 80061; 85025; 85610; 85730; 87635; 93005; 93041; 93306; 94760; 97161; 97165; 97530; 99285; G0378; Q9967

== ENCOUNTER 2023-02-19 12:43 | Observation (INO) | payer MEDICARE, BC, OTHER ==
[~2023-02-19] VITALS: Ht 180.3 cm; Wt 88.1 kg
[~2023-02-19 12:43] MED LIST changes: +DICY-61 PO; +FAMO20TA5 PO; +GABA-1171 PO; +PREDOPD OU; +RISA360W SUBQ
[2023-02-19] MEDS ORDERED: NITROGLYCERIN 0.4MG SUBL TABLET SL PRN (13:00)
[2023-02-19 13:20] LABS: BASO % 0.5 % (0.0-1.0); EOS # 0.2 10^3/uL (0.0-0.5); HEMATOCRIT 40.9 % (42.0-52.0); HEMOGLOBIN 14.4 g/dl (13.5-17.5); LYMPH % 31.7 % (24.0-44.0); MEAN CORPUSCULAR HEMOGLOBIN 32.2 pg (27.0-33.0); MEAN CORPUSCULAR HGB CONC 35.2 g/dl (32.0-36.5); MEAN CORPUSCULAR VOLUME 91.5 fl (80.0-96.0); MONO # 0.6 10^3/uL (0.0-0.8); NEUTROPHILS # 3.5 10^3/uL (1.5-8.5); NEUTROPHILS % 55.3 % (36.0-66.0); PLATELET COUNT, AUTOMATED 278 10^3/uL (150-450); RED BLOOD COUNT 4.47 10^6/uL (4.30-6.10); WHITE BLOOD COUNT 6.3 10^3/uL (4.0-10.0)
[2023-02-19 13:31] LABS: INR 0.95; PARTIAL THROMBOPLASTIN TIME 28.5 SECONDS (24.8-34.2); PROTHROMBIN TIME 12.9 SECONDS (12.5-14.5)
[2023-02-19 13:47] LABS: CK-MB VALUE MASS < 1.0 NG/ML (<3.6); LIPASE 50 U/L (12-53)
[2023-02-19 13:50] LABS: ALBUMIN 4.2 G/DL (3.2-5.2); ALKALINE PHOSPHATASE 62 U/L (46-116); ALT/SGPT 24 U/L (7.0-40); AST/SGOT 25 U/L (<34); BILIRUBIN,DIRECT 0.1 MG/DL (<0.4); BILIRUBIN,TOTAL 0.6 MG/DL (0.3-1.2); BLOOD UREA NITROGEN 9 MG/DL (9-23); CALCIUM LEVEL 9.1 MG/DL (8.3-10.6); CARBON DIOXIDE LEVEL 26 MMOL/L (20-31); CHLORIDE LEVEL 98 MMOL/L (98-107); CREATININE FOR GFR 0.78 MG/DL (0.70-1.30); GLOMERULAR FILTRATION RATE > 60.0 (>49); GLUCOSE, FASTING 103 MG/DL (74-106); POTASSIUM SERUM 4.7 MMOL/L (3.5-5.1); SODIUM LEVEL 135 MMOL/L (136-145); TOTAL PROTEIN 7.3 G/DL (5.7-8.2)
[2023-02-19 13:52] LABS: FREE T4 1.07 NG/DL (0.89-1.76); THYROID STIMULATING HORMONE 1.593 uIU/ML (0.55-4.78)
[2023-02-19 13:54] LABS: CPK CREATINE PHOSPHOKINASE 92 U/L (46-171); MB/CK RELATIVE INDEX 1.08 (< OR =4)
[2023-02-19] MEDS ORDERED: ISOVUE-370 76% 100ML VIAL As Ordered ONE (14:20)
[2023-02-19 15:09] LABS: CK-MB VALUE MASS < 1.0 NG/ML (<3.6)
[2023-02-19 15:26] LABS: CPK CREATINE PHOSPHOKINASE 76 U/L (46-171); MB/CK RELATIVE INDEX 1.31 (< OR =4)
[2023-02-19] MEDS ORDERED: MED REC IN PROGRESS XX SCH (15:45)
[2023-02-19] MEDS ORDERED: VANCOMYCIN HCL IV ONE (15:45)
[2023-02-19] MEDS ORDERED: PIPERACILLIN/TAZOBACTAM SOD 4.5 GM in D5W MINI-BAG PLUS 50 ML IV ONE (15:45)
[2023-02-19] MEDS ORDERED: FLUID PLACE HOLDER IV ONE (15:45)
[2023-02-19] MEDS ORDERED: VANCOMYCIN HCL 1,000 MG, VIAL MATE ADAPTER 1 EACH in D5W 250 ML IV ONE (15:50)
[2023-02-19] MEDS ORDERED: FLUT50SP17 EN (15:58)
[2023-02-19] MEDS ORDERED: PROB250C PO (15:58)
[2023-02-19] MEDS ORDERED: LISI20TA33 PO (15:58)
[2023-02-19] MEDS ORDERED: HOME MED LIST COMPLETE! XX SCH (16:00)
[2023-02-19 16:46] LABS: RSV AMPLIFICATION NEGATIVE (NEGATIVE)
[2023-02-19 16:59] LABS: C REACTIVE PROTEIN QUANTITATIV < 0.40 MG/DL (<1.0)
[2023-02-19] MEDS ORDERED: VANCOMYCIN HCL 750 MG, VIAL MATE ADAPTER 1 EACH in D5W 250 ML IV ONE (17:00)
[2023-02-19 17:06] LABS: PROCALCITONIN <0.04 ng/ml
[2023-02-19] MEDS ORDERED: ACETAMINOPH W/CODEINE #3 TAB UD PO PRN (18:05)
[2023-02-19] MEDS ORDERED: tiZANidine 4 MG TAB PO ONE (18:30)
[2023-02-19] MEDS ORDERED: SUCRALFATE SUSP 1GM/10ML UD PO ONE (18:30)
[2023-02-19] MEDS ORDERED: GABAPENTIN 100 MG CAP PO PRN (18:30)
[2023-02-19] MEDS ORDERED: KETOROLAC 30 MG/ML 1ML VIAL IV ONE (18:30)
[2023-02-19 18:52] VITALS: TEMP 98.1; O2SAT 97
[2023-02-19] MEDS ORDERED: LIDOCAINE 5% (LIDODERM) PATCH TD ONE (19:00)
[2023-02-19] MEDS ORDERED: PANTOPRAZOLE 40MG VIAL IV ONE (19:00)
[2023-02-19 20:41] LABS: CK-MB VALUE MASS < 1.0 NG/ML (<3.6)
[2023-02-19 20:45] LABS: CPK CREATINE PHOSPHOKINASE 68 U/L (46-171); MB/CK RELATIVE INDEX 1.47 (< OR =4)
[2023-02-19 20:46] VITALS: BP 108/64; TEMP 97.7; O2SAT 94
[2023-02-19] MEDS: DOCUSATE SODIUM 100MG CAPSULE PO SCH (20:47)
[2023-02-19] MEDS: FAMOTIDINE 20 MG TAB PO SCH (20:47)
[2023-02-19] MEDS ORDERED: SIMVASTATIN 40 MG TAB PO SCH (21:00)
[2023-02-19] MEDS ORDERED: ENOXAPARIN 40MG/0.4ML SYRINGE (J1650 PER 10MG) SC SCH (21:00)
[2023-02-20] MEDS: KETOROLAC 30 MG/ML 1ML VIAL IV SCH ×2 (00:55→06:56)
[2023-02-20 06:17] VITALS: BP 133/77; TEMP 98.1; O2SAT 98
[2023-02-20 06:19] LABS: BASO # 0.1 10^3/uL (0.0-0.2); BASO % 0.9 % (0.0-1.0); EOS # 0.4 10^3/uL (0.0-0.5); EOS % 6.7 % (0.0-3.0); HEMATOCRIT 36.9 % (42.0-52.0); HEMOGLOBIN 13.3 g/dl (13.5-17.5); LYMPH # 2.1 10^3/uL (1.5-5.0); LYMPH % 37.5 % (24.0-44.0); MEAN CORPUSCULAR HEMOGLOBIN 32.8 pg (27.0-33.0); MEAN CORPUSCULAR VOLUME 90.9 fl (80.0-96.0); MONO # 0.6 10^3/uL (0.0-0.8); MONO % 10.8 % (2.0-8.0); NEUTROPHILS # 2.4 10^3/uL (1.5-8.5); NEUTROPHILS % 43.4 % (36.0-66.0); PLATELET COUNT, AUTOMATED 232 10^3/uL (150-450); RED BLOOD COUNT 4.06 10^6/uL (4.30-6.10); WHITE BLOOD COUNT 5.6 10^3/uL (4.0-10.0)
[2023-02-20 06:43] LABS: BLOOD UREA NITROGEN 8 MG/DL (9-23); CALCIUM LEVEL 8.7 MG/DL (8.3-10.6); CARBON DIOXIDE LEVEL 26 MMOL/L (20-31); CHLORIDE LEVEL 98 MMOL/L (98-107); CREATININE FOR GFR 0.85 MG/DL (0.70-1.30); GLOMERULAR FILTRATION RATE > 60.0 (>49); GLUCOSE, FASTING 88 MG/DL (74-106); POTASSIUM SERUM 4.2 MMOL/L (3.5-5.1); SODIUM LEVEL 133 MMOL/L (136-145)
[2023-02-20] MEDS ORDERED: SUCRALFATE SUSP 1GM/10ML UD PO SCH (07:30)
[2023-02-20] MEDS: DOCUSATE SODIUM 100MG CAPSULE PO SCH (07:57)
[2023-02-20] MEDS: FAMOTIDINE 20 MG TAB PO SCH (07:57)
[2023-02-20 07:58] VITALS: BP 133/77
[2023-02-20] MEDS ORDERED: ASPIRIN 81MG ENTERIC TABLET PO SCH (09:00)
[2023-02-20] MEDS ORDERED: tiZANidine 4 MG TAB PO SCH (09:00)
[2023-02-20] MEDS ORDERED: OMEPRAZOLE 20MG CAP PO SCH (09:00)
[2023-02-20] MEDS ORDERED: SUCR1ORA PO (10:20)
[2023-02-20] MEDS ORDERED: TIZA10TA PO (10:20)
[2023-02-20] MEDS ORDERED: ACET-897 PO (10:54)
[2023-02-20] MEDS ORDERED: NAPR-885 PO (10:54)
== END 2023-02-20 11:43 | disposition home or self-care (01) ==
LOC: M ED 12:43 → M ED INP 16:42 → M MSPAV 18:45
PROVIDERS: ADMIT Internal Medicine Nephrology; ATTEND Internal Medicine Nephrology
DX: R07.89 Other chest pain (principal); I44.0 Atrioventricular block, first degree; I45.10 Unspecified right bundle-branch block; R07.1 Chest pain on breathing; K21.9 Gastro-esophageal reflux disease without esophagitis; K44.9 Diaphragmatic hernia without obstruction or gangrene; Z87.19 Personal history of other diseases of the digestive system; C61 Malignant neoplasm of prostate; R97.21 Rising PSA following treatment for malignant neoplasm of prostate; R97.20 Elevated prostate specific antigen [PSA]; I10 Essential (primary) hypertension; E78.5 Hyperlipidemia, unspecified; K51.90 Ulcerative colitis, unspecified, without complications; H81.10 Benign paroxysmal vertigo, unspecified ear; J43.9 Emphysema, unspecified; Z77.090 Contact with and (suspected) exposure to asbestos; I25.10 Atherosclerotic heart disease of native coronary artery without angina pectoris; K76.0 Fatty (change of) liver, not elsewhere classified; R51.9 Headache, unspecified; F41.9 Anxiety disorder, unspecified; F32.A Depression, unspecified; Z88.1 Allergy status to other antibiotic agents; Z79.899 Other long term (current) drug therapy; Z79.82 Long term (current) use of aspirin
CPT/HCPCS: 36415; 71046; 71275; 74177; 80048; 80076; 82550; 82553; 83690; 84145; 84439; 84443; 84484; 85025; 85610; 85730; 86140; 87040; 87631; 93005; 93041; 94760; 96365; 96367; 96372; 96375; 96376; 99285; C9113; G0378; J1650; J1885; J2543; Q9967

== ENCOUNTER → 2023-02-23 | Outpatient (CLI) | payer MEDICARE, BC, OTHER ==
[~2023-02-23] MED LIST changes: +ACET-897 PO; +FLUT50SP17 EN; +NAPR-885 PO; +PROB250C PO; +SUCR1ORA PO; +TIZA10TA PO
[2023-02-24 23:09] LABS: PSA TOTAL 0.5 ng/mL (0.0-4.0)
== END ==
LOC: M LAB 10:11
PROVIDERS: ATTEND Urology
DX: C61 Malignant neoplasm of prostate (principal); R97.21 Rising PSA following treatment for malignant neoplasm of prostate; R97.20 Elevated prostate specific antigen [PSA]

== ENCOUNTER → 2023-02-25 | Outpatient (CLI) | payer MEDICARE, BC, OTHER ==
[~2023-02-25] MED LIST changes: +E-Z-GAS II EFFERVESCENT PACKET (SODIUM BICARB./CITRIC ACID/SIMETHICONE) As Ordered ONE; +E-Z-HD 98% w/w 340GM SUSP BTL As Ordered ONE; +E-Z-PAQUE 96% w/w SUSP 176GM BTL As Ordered ONE
== END ==
LOC: M RAD 07:39
PROVIDERS: ATTEND Internal Medicine Nephrology
DX: K22.4 Dyskinesia of esophagus (principal)

== ENCOUNTER → 2023-04-01 | Outpatient (CLI) | payer MEDICARE, BC, OTHER ==
[~2023-04-01] MED LIST changes: -E-Z-GAS II EFFERVESCENT PACKET (SODIUM BICARB./CITRIC ACID/SIMETHICONE) As Ordered ONE; -E-Z-HD 98% w/w 340GM SUSP BTL As Ordered ONE; -E-Z-PAQUE 96% w/w SUSP 176GM BTL As Ordered ONE; +MECL-209 PO; -MECL1TAB31 PO
[2023-04-01 11:34] LABS: BLOOD UREA NITROGEN 16 MG/DL (9-23); CREATININE FOR GFR 0.88 MG/DL (0.70-1.30); GLOMERULAR FILTRATION RATE > 60.0 (>49)
== END ==
LOC: M LAB 10:20
PROVIDERS: ATTEND Physical Medicine & Rehabilitation
DX: M48.061 Spinal stenosis, lumbar region without neurogenic claudication (principal)

== ENCOUNTER → 2023-05-17 | Outpatient (REF) | payer MEDICARE, OTHER ==
[2023-05-17 19:10] LABS: LIPASE 49 U/L (12-53)
[2023-05-17 19:11] LABS: C REACTIVE PROTEIN QUANTITATIV < 0.40 MG/DL (<1.0)
[2023-05-17 19:12] LABS: AMYLASE 51 U/L (30-118)
== END ==
LOC: M LAB REF 17:08
PROVIDERS: ATTEND Family Medicine
DX: R10.84 Generalized abdominal pain (principal)

== ENCOUNTER 2023-06-17 19:12 | Inpatient (IN) | payer MEDICARE, BC, OTHER ==
[~2023-06-17] VITALS: Ht 180.3 cm; Wt 90.1 kg
[2023-06-17 19:58] LABS: BASO # 0.1 10^3/uL (0.0-0.2); BASO % 0.4 % (0.0-1.0); EOS # 0.2 10^3/uL (0.0-0.5); EOS % 1.5 % (0.0-3.0); HEMATOCRIT 39.2 % (42.0-52.0); HEMOGLOBIN 13.8 g/dl (13.5-17.5); LYMPH # 2.8 10^3/uL (1.5-5.0); LYMPH % 24.4 % (24.0-44.0); MEAN CORPUSCULAR HEMOGLOBIN 32.1 pg (27.0-33.0); MEAN CORPUSCULAR HGB CONC 35.2 g/dl (32.0-36.5); MEAN CORPUSCULAR VOLUME 91.2 fl (80.0-96.0); MONO % 8.5 % (2.0-8.0); NEUTROPHILS # 7.5 10^3/uL (1.5-8.5); NEUTROPHILS % 64.4 % (36.0-66.0); PLATELET COUNT, AUTOMATED 315 10^3/uL (150-450); WHITE BLOOD COUNT 11.6 10^3/uL (4.0-10.0)
[2023-06-17 19:59] LABS: BASO # 0.1 10^3/uL (0.0-0.2); BASO % 0.4 % (0.0-1.0); EOS # 0.1 10^3/uL (0.0-0.5); EOS % 1.2 % (0.0-3.0); HEMATOCRIT 38.6 % (42.0-52.0); HEMOGLOBIN 13.6 g/dl (13.5-17.5); LYMPH # 2.9 10^3/uL (1.5-5.0); LYMPH % 25.2 % (24.0-44.0); MEAN CORPUSCULAR HEMOGLOBIN 32.2 pg (27.0-33.0); MEAN CORPUSCULAR HGB CONC 35.2 g/dl (32.0-36.5); MEAN CORPUSCULAR VOLUME 91.5 fl (80.0-96.0); MONO # 0.9 10^3/uL (0.0-0.8); NEUTROPHILS # 7.3 10^3/uL (1.5-8.5); NEUTROPHILS % 64.4 % (36.0-66.0); PLATELET COUNT, AUTOMATED 316 10^3/uL (150-450); RED BLOOD COUNT 4.22 10^6/uL (4.30-6.10); WHITE BLOOD COUNT 11.3 10^3/uL (4.0-10.0)
[2023-06-17 20:23] LABS: CK-MB VALUE MASS < 1.0 NG/ML (<3.6); LIPASE 92 U/L (12-53); LIPASE 93 U/L (12-53)
[2023-06-17 20:25] LABS: ALBUMIN 3.7 G/DL (3.2-5.2); ALBUMIN 3.9 G/DL (3.2-5.2); ALKALINE PHOSPHATASE 104 U/L (46-116); ALKALINE PHOSPHATASE 110 U/L (46-116); ALT/SGPT 156 U/L (7.0-40); ALT/SGPT 164 U/L (7.0-40); AST/SGOT 331 U/L (<34); AST/SGOT 340 U/L (<34); BILIRUBIN,DIRECT 0.2 MG/DL (<0.4); BILIRUBIN,TOTAL 0.4 MG/DL (0.3-1.2); BILIRUBIN,TOTAL 0.5 MG/DL (0.3-1.2); BLOOD UREA NITROGEN 10 MG/DL (9-23); CALCIUM LEVEL 8.9 MG/DL (8.3-10.6); CARBON DIOXIDE LEVEL 27 MMOL/L (20-31); CHLORIDE LEVEL 96 MMOL/L (98-107); CK-MB VALUE MASS < 1.0 NG/ML (<3.6); CPK CREATINE PHOSPHOKINASE 78 U/L (46-171); CPK CREATINE PHOSPHOKINASE 85 U/L (46-171); CREATININE FOR GFR 0.81 MG/DL (0.70-1.30); GLOMERULAR FILTRATION RATE > 60.0 (>49); GLUCOSE, FASTING 108 MG/DL (74-106); MB/CK RELATIVE INDEX 1.17 (< OR =4); MB/CK RELATIVE INDEX 1.28 (< OR =4); POTASSIUM SERUM 4.1 MMOL/L (3.5-5.1); SODIUM LEVEL 131 MMOL/L (136-145); TOTAL PROTEIN 6.9 G/DL (5.7-8.2); TOTAL PROTEIN 7.2 G/DL (5.7-8.2)
[2023-06-17 20:30] LABS: RSV AMPLIFICATION NEGATIVE (NEGATIVE)
[2023-06-17] MEDS ORDERED: MORPHINE 4 MG/ML 1ML VIAL IV ONE (20:45)
[2023-06-17] MEDS ORDERED: NS 1,000 ML IV ONE ×2 (20:45→23:20)
[2023-06-17] MEDS ORDERED: ONDANSETRON 4MG 2ML VIAL IV ONE (20:45)
[2023-06-17] MEDS ORDERED: ISOVUE-370 76% 100ML VIAL As Ordered ONE (21:33)
[2023-06-17] MEDS ORDERED: MAALOX 30 ML SUSP *UDC PO ONE (22:05)
[2023-06-17] MEDS ORDERED: HYDROMORPHONE HCL 0.5 MG/ 0.5 ML SYRINGE IV ONE (23:20)
[2023-06-18] VITALS (7 sets, daily range): BP systolic 125–146; BP diastolic 65–84; TEMP 96.5–97.9; O2SAT 93–98
[2023-06-18] MEDS ORDERED: DEXI60CA2 PO (00:08)
[2023-06-18] MEDS ORDERED: AMLO1TAB25 PO (00:08)
[2023-06-18] MEDS ORDERED: ASPI-255 PO (00:08)
[2023-06-18] MEDS ORDERED: HYDR12.55 PO (00:08)
[2023-06-18] MEDS ORDERED: DICY20TA20 PO (00:08)
[2023-06-18] MEDS ORDERED: NAPR500T6 PO (00:08)
[2023-06-18] MEDS ORDERED: ACET-683 PO (00:08)
[2023-06-18] MEDS ORDERED: HOME MED LIST COMPLETE! XX SCH (00:15)
[2023-06-18] MEDS ORDERED: ONDANSETRON 4MG 2ML VIAL IV PRN (01:30)
[2023-06-18] MEDS ORDERED: HYDROMORPHONE HCL 0.5 MG/ 0.5 ML SYRINGE IV PRN ×2 (01:30)
[2023-06-18] MEDS: metroNIDAZOLE 500 MG in IV 1 EA IV SCH ×3 (03:30→17:49)
[2023-06-18] MEDS: LR 1,000 ML IV SCH ×2 (04:38→10:57)
[2023-06-18] MEDS: CIPROFLOXACIN 400 MG in IV 1 EA IV SCH ×2 (04:58→16:58)
[2023-06-18] MEDS: HEPARIN SOD (PORCINE) 5000UNITS/ML 1ML VIAL/SYRINGE SC SCH ×3 (06:44→22:50)
[2023-06-18 07:22] LABS: ERYTHROCYTE SEDIMENTATION RATE 10 mm/hr (0-20)
[2023-06-18 07:26] LABS: LIPASE 46 U/L (12-53)
[2023-06-18 07:32] LABS: ALBUMIN 3.4 G/DL (3.2-5.2); ALKALINE PHOSPHATASE 118 U/L (46-116); ALT/SGPT 258 U/L (7.0-40); AST/SGOT 312 U/L (<34); BILIRUBIN,TOTAL 0.6 MG/DL (0.3-1.2); BLOOD UREA NITROGEN 9 MG/DL (9-23); CALCIUM LEVEL 8.6 MG/DL (8.3-10.6); CARBON DIOXIDE LEVEL 28 MMOL/L (20-31); CHLORIDE LEVEL 101 MMOL/L (98-107); CREATININE FOR GFR 0.75 MG/DL (0.70-1.30); GLOMERULAR FILTRATION RATE > 60.0 (>49); GLUCOSE, FASTING 113 MG/DL (74-106); POTASSIUM SERUM 4.5 MMOL/L (3.5-5.1); SODIUM LEVEL 135 MMOL/L (136-145); TOTAL PROTEIN 6.2 G/DL (5.7-8.2)
[2023-06-18 07:57] LABS: C REACTIVE PROTEIN QUANTITATIV < 0.40 MG/DL (<1.0)
[2023-06-18 08:34] LABS: HEPATITIS B CORE ANTIBODY IGM NEGATIVE (NEGATIVE); HEPATITIS C VIRUS ABY INDEX 0.06 INDEX (<0.8)
[2023-06-18] MEDS ORDERED: ASPIRIN 300 MG SUPP PR SCH (09:00)
[2023-06-18] MEDS ORDERED: PANTOPRAZOLE 40MG VIAL IV SCH (09:00)
[2023-06-18 09:58] LABS: HEMOGLOBIN 12.4 g/dl (13.5-17.5); MEAN CORPUSCULAR HEMOGLOBIN 32.4 pg (27.0-33.0); MEAN CORPUSCULAR HGB CONC 34.4 g/dl (32.0-36.5); PLATELET COUNT, AUTOMATED 277 10^3/uL (150-450); RED BLOOD COUNT 3.83 10^6/uL (4.30-6.10); WHITE BLOOD COUNT 7.5 10^3/uL (4.0-10.0)
[2023-06-18] MEDS: ASPIRIN 325 MG TAB PO SCH (10:11)
[2023-06-18] MEDS: hydroCHLOROthiazide 12.5 MG CAPSULE PO SCH (10:13)
[2023-06-18] MEDS: LACTOBACILLUS ACIDOPHILUS CAP (BACID) PO SCH (17:49)
[2023-06-18] MEDS: FAMOTIDINE 20 MG TAB PO SCH (20:33)
[2023-06-18] MEDS ORDERED: SIMVASTATIN 40 MG TAB PO SCH (21:00)
[2023-06-19] MEDS: metroNIDAZOLE 500 MG in IV 1 EA IV SCH ×2 (02:38→12:28)
[2023-06-19] MEDS: CIPROFLOXACIN 400 MG in IV 1 EA IV SCH (03:51)
[2023-06-19 06:00] VITALS: BP 131/72; TEMP 97.9; O2SAT 95
[2023-06-19] MEDS: HEPARIN SOD (PORCINE) 5000UNITS/ML 1ML VIAL/SYRINGE SC SCH (06:58)
[2023-06-19 07:07] LABS: BASO % 0.7 % (0.0-1.0); EOS # 0.5 10^3/uL (0.0-0.5); EOS % 8.1 % (0.0-3.0); HEMATOCRIT 36.1 % (42.0-52.0); HEMOGLOBIN 12.5 g/dl (13.5-17.5); LYMPH # 1.7 10^3/uL (1.5-5.0); LYMPH % 30.3 % (24.0-44.0); MEAN CORPUSCULAR HEMOGLOBIN 32.6 pg (27.0-33.0); MEAN CORPUSCULAR HGB CONC 34.6 g/dl (32.0-36.5); MEAN CORPUSCULAR VOLUME 94.3 fl (80.0-96.0); MONO # 0.5 10^3/uL (0.0-0.8); MONO % 7.9 % (2.0-8.0); NEUTROPHILS % 52.5 % (36.0-66.0); PLATELET COUNT, AUTOMATED 274 10^3/uL (150-450); RED BLOOD COUNT 3.83 10^6/uL (4.30-6.10); WHITE BLOOD COUNT 5.7 10^3/uL (4.0-10.0)
[2023-06-19 07:27] LABS: C REACTIVE PROTEIN QUANTITATIV < 0.40 MG/DL (<1.0)
[2023-06-19 07:29] LABS: ALBUMIN 3.6 G/DL (3.2-5.2); ALKALINE PHOSPHATASE 105 U/L (46-116); ALT/SGPT 176 U/L (7.0-40); AST/SGOT 99 U/L (<34); BILIRUBIN,TOTAL 0.4 MG/DL (0.3-1.2); BLOOD UREA NITROGEN 8 MG/DL (9-23); CALCIUM LEVEL 8.7 MG/DL (8.3-10.6); CARBON DIOXIDE LEVEL 29 MMOL/L (20-31); CHLORIDE LEVEL 102 MMOL/L (98-107); GLOMERULAR FILTRATION RATE > 60.0 (>49); GLUCOSE, FASTING 102 MG/DL (74-106); POTASSIUM SERUM 4.5 MMOL/L (3.5-5.1); SODIUM LEVEL 138 MMOL/L (136-145); TOTAL PROTEIN 6.5 G/DL (5.7-8.2)
[2023-06-19] MEDS ORDERED: ISOVUE-370 76% 100ML VIAL As Ordered ONE (08:33)
[2023-06-19 08:36] VITALS: BP 131/72
[2023-06-19] MEDS: ASPIRIN 325 MG TAB PO SCH (08:36)
[2023-06-19] MEDS: LACTOBACILLUS ACIDOPHILUS CAP (BACID) PO SCH (08:36)
[2023-06-19] MEDS: hydroCHLOROthiazide 12.5 MG CAPSULE PO SCH (08:36)
[2023-06-19] MEDS: FAMOTIDINE 20 MG TAB PO SCH (08:37)
[2023-06-19] MEDS ORDERED: MULTIVITAMINS/MINERALS THERAP 1 TAB PO SCH (09:00)
[2023-06-19] MEDS ORDERED: OMEPRAZOLE 20MG CAP PO SCH (09:00)
[2023-06-19] MEDS ORDERED: FLUTICASONE PROP 0.05% NASAL SPRAY 16 GM (FLONASE) SCH (09:00)
[2023-06-19] MEDS ORDERED: METR-265 PO (10:36)
[2023-06-19] MEDS ORDERED: CIPR-249 PO (10:36)
[2023-06-19] MEDS ORDERED: FLUZONE HIGH DOSE(65YR UP)QUAD/PF 240MCG/0.7ML SYRINGE IM.IMMUN ONE (12:30)
== END 2023-06-19 13:20 | disposition home or self-care (01) | DRG 392 ==
LOC: M ED 19:12 → M ED INP 23:47 → M MS4PR 06-18 04:23
PROVIDERS: ADMIT Internal Medicine; ATTEND Internal Medicine
DX: A09 Infectious gastroenteritis and colitis, unspecified (principal); K50.90 Crohn's disease, unspecified, without complications; I10 Essential (primary) hypertension; I95.1 Orthostatic hypotension; R74.01 Elevation of levels of liver transaminase levels; K21.9 Gastro-esophageal reflux disease without esophagitis; E78.5 Hyperlipidemia, unspecified; Z90.49 Acquired absence of other specified parts of digestive tract; Z86.73 Personal history of transient ischemic attack (TIA), and cerebral infarction without residual deficits; Z79.82 Long term (current) use of aspirin; Z79.899 Other long term (current) drug therapy; Z88.1 Allergy status to other antibiotic agents; Z85.46 Personal history of malignant neoplasm of prostate

== ENCOUNTER → 2023-06-29 | Outpatient (REF) | payer MEDICARE, OTHER ==
[~2023-06-29] MED LIST changes: +ACET-683 PO; +ASPI-255 PO; +CIPR-249 PO; +DEXI60CA2 PO; +DICY20TA20 PO; -FLUT50SP17 EN; +FLUTISP EN; +HYDR12.55 PO; +NAPR500T6 PO
== END ==
LOC: M LAB REF 09:56
PROVIDERS: ATTEND Internal Medicine
DX: R19.7 Diarrhea, unspecified (principal)

== ENCOUNTER → 2023-08-29 | Outpatient (REF) | payer MEDICARE, OTHER ==
[2023-08-29 14:45] LABS: FERRITIN 303.9 NG/ML (10.5-307.3); TOTAL 25(OH) VITAMIN D 40.3 NG/ML (20.0-100.0)
[2023-08-29 14:46] LABS: C REACTIVE PROTEIN QUANTITATIV < 0.40 MG/DL (<1.0)
[2023-08-29 14:47] LABS: IRON (FE) 78 UG/DL (65-175); PERCENT SATURATION 27.5 % (19.7-50.0); TOTAL IRON BINDING CAPACITY 284 UG/DL (250-425)
[2023-08-29 14:50] LABS: VITAMIN B12 LEVEL 382 PG/ML (211-911)
[2023-08-29 15:03] LABS: FOLATE 12.5 NG/ML (>5.4)
== END ==
LOC: M LAB REF 12:19
PROVIDERS: ATTEND Family Medicine
DX: E56.9 Vitamin deficiency, unspecified (principal); K50.919 Crohn's disease, unspecified, with unspecified complications

== ENCOUNTER → 2023-09-07 | Outpatient (CLI) | payer MEDICARE, OTHER ==
[2023-09-07 11:23] LABS: PROSTATIC SPECIFIC AG MONITOR 0.61 NG/ML (< 4.00)
== END ==
LOC: M LAB 10:10
PROVIDERS: ATTEND Urology
DX: C61 Malignant neoplasm of prostate (principal)

== ENCOUNTER → 2023-11-29 | Outpatient (CLI) | payer MEDICARE, OTHER, BC ==
[2023-11-29 15:13] LABS: C REACTIVE PROTEIN QUANTITATIV < 0.40 MG/DL (<1.0)
[2023-11-29 15:17] LABS: FREE T4 1.13 NG/DL (0.89-1.76); THYROID STIMULATING HORMONE 2.053 uIU/ML (0.55-4.78); TOTAL 25(OH) VITAMIN D 36.5 NG/ML (20.0-100.0)
[2023-11-29 15:19] LABS: FREE T3 3.5 PG/ML (2.3-4.2)
== END ==
LOC: M LAB 14:21
PROVIDERS: ATTEND Ophthalmology
DX: H16.223 Keratoconjunctivitis sicca, not specified as Sjogren's, bilateral (principal); E07.9 Disorder of thyroid, unspecified

== ENCOUNTER → 2024-01-11 | Outpatient (CLI) | payer MEDICARE, BC ==
[2024-01-11 10:33] LABS: PSA SCREENING 0.81 NG/ML (< 4.00)
== END ==
LOC: M LAB 09:24
PROVIDERS: ATTEND Urology
DX: C61 Malignant neoplasm of prostate (principal)
CPT/HCPCS: 36415; 84403; G0103

== ENCOUNTER → 2024-04-12 | Outpatient (CLI) | payer MEDICARE, BC ==
[2024-04-12 11:12] LABS: PROSTATIC SPECIFIC AG MONITOR 0.81 NG/ML (< 4.00)
== END ==
LOC: M LAB 09:54
PROVIDERS: ATTEND Urology
DX: C61 Malignant neoplasm of prostate (principal)

== ENCOUNTER → 2024-09-25 | Outpatient (CLI) | payer MEDICARE, BC ==
[~2024-09-25] MED LIST changes: +NAPR-1405 PO; -NAPR500T6 PO
[2024-09-25 10:54] LABS: HEMATOCRIT 40.6 % (42.0-52.0); HEMOGLOBIN 14.4 g/dl (13.5-17.5); MEAN CORPUSCULAR HEMOGLOBIN 32.6 pg (27.0-33.0); MEAN CORPUSCULAR HGB CONC 35.5 g/dl (32.0-36.5); MEAN CORPUSCULAR VOLUME 91.9 fl (80.0-96.0); PLATELET COUNT, AUTOMATED 290 10^3/uL (150-450); RED BLOOD COUNT 4.42 10^6/uL (4.30-6.10); WHITE BLOOD COUNT 8.8 10^3/uL (4.0-10.0)
[2024-09-25 11:05] LABS: ERYTHROCYTE SEDIMENTATION RATE 14 mm/hr (0-20)
[2024-09-25 11:18] LABS: ALBUMIN 3.9 G/DL (3.2-5.2); ALKALINE PHOSPHATASE 66 U/L (40-129); ALT/SGPT 25 U/L (7.0-40); AST/SGOT 24 U/L (<34); BILIRUBIN,TOTAL 0.5 MG/DL (0.3-1.2); BLOOD UREA NITROGEN 17 MG/DL (9-23); C REACTIVE PROTEIN QUANTITATIV < 0.50 MG/DL (<1.0); CALCIUM LEVEL 9.1 MG/DL (8.3-10.6); CARBON DIOXIDE LEVEL 28 MMOL/L (20-31); CHLORIDE LEVEL 98 MMOL/L (98-107); CREATININE FOR GFR 0.84 MG/DL (0.70-1.30); GLOMERULAR FILTRATION RATE > 60.0 (>42); GLUCOSE, FASTING 104 MG/DL (74-106); POTASSIUM SERUM 4.9 MMOL/L (3.5-5.1); SODIUM LEVEL 133 MMOL/L (136-145); TOTAL PROTEIN 7.2 G/DL (5.7-8.2)
== END ==
LOC: M LAB 09:34
PROVIDERS: ATTEND Internal Medicine Gastroenterology
DX: K21.9 Gastro-esophageal reflux disease without esophagitis (principal)

== ENCOUNTER → 2024-10-30 | Outpatient (CLI) | payer MEDICARE, BC | LOC: M LAB 11:54 | PROVIDERS: ATTEND Urology | DX: C61 Malignant neoplasm of prostate (principal) ==

== ENCOUNTER → 2024-11-13 | Outpatient (CLI) | payer MEDICARE, BC | LOC: M LAB 09:32 | PROVIDERS: ATTEND Urology | DX: C61 Malignant neoplasm of prostate (principal) ==

== ENCOUNTER 2024-11-27 10:42 | Observation (INO) | payer MEDICARE, BC ==
[~2024-11-27] VITALS: Ht 180.3 cm; Wt 89.7 kg
[2024-11-27] MEDS ORDERED: ISOVUE-370 76% 100ML VIAL As Ordered ONE (10:54)
[2024-11-27 11:16] LABS: BASO % 0.4 % (0.0-1.0); EOS # 0.3 10^3/uL (0.0-0.5); EOS % 3.7 % (0.0-3.0); HEMATOCRIT 39.7 % (42.0-52.0); LYMPH # 3.7 10^3/uL (1.5-5.0); LYMPH % 47.5 % (24.0-44.0); MEAN CORPUSCULAR HEMOGLOBIN 32.5 pg (27.0-33.0); MEAN CORPUSCULAR HGB CONC 35.3 g/dl (32.0-36.5); MEAN CORPUSCULAR VOLUME 92.1 fl (80.0-96.0); MONO # 0.7 10^3/uL (0.0-0.8); MONO % 8.6 % (2.0-8.0); NEUTROPHILS # 3.1 10^3/uL (1.5-8.5); NEUTROPHILS % 39.5 % (36.0-66.0); PLATELET COUNT, AUTOMATED 284 10^3/uL (150-450); RED BLOOD COUNT 4.31 10^6/uL (4.30-6.10); WHITE BLOOD COUNT 7.8 10^3/uL (4.0-10.0)
[2024-11-27 11:30] LABS: INR 0.92; PARTIAL THROMBOPLASTIN TIME 28.2 SECONDS (24.8-34.2); PROTHROMBIN TIME 12.7 SECONDS (12.5-14.5)
[2024-11-27 11:48] LABS: BLOOD UREA NITROGEN 13 MG/DL (9-23); CALCIUM LEVEL 9.1 MG/DL (8.3-10.6); CARBON DIOXIDE LEVEL 26 MMOL/L (20-31); CHLORIDE LEVEL 97 MMOL/L (98-107); CREATININE FOR GFR 0.87 MG/DL (0.70-1.30); GLOMERULAR FILTRATION RATE > 90.0 (>42); GLUCOSE, FASTING 94 MG/DL (74-106); POTASSIUM SERUM 4.5 MMOL/L (3.5-5.1); SODIUM LEVEL 131 MMOL/L (136-145)
[2024-11-27] MEDS ORDERED: MULTTAB61 PO (11:51)
[2024-11-27] MEDS ORDERED: BACL10TA2 PO (12:12)
[2024-11-27] MEDS ORDERED: HOME MED LIST COMPLETE! XX SCH (12:15)
[2024-11-27] MEDS: ASPIRIN 81MG CHEW TABLET PO ONE (13:00)
[2024-11-27] MEDS ORDERED: GABAPENTIN 100 MG CAP PO PRN (13:10)
[2024-11-27] MEDS ORDERED: ACETAMINOPHEN 500 MG TAB PO PRN (13:10)
[2024-11-27] MEDS: ATORVASTATIN 20 MG TAB PO ONE (13:42)
[2024-11-27] MEDS: ENOXAPARIN 40MG/0.4ML SYRINGE (J1650 PER 10MG) SC ONE (13:44)
[2024-11-27 14:00] VITALS: BP 172/92; TEMP 97.4; O2SAT 99
[2024-11-27] MEDS ORDERED: NALOXONE INJ 0.4MG/1ML VIAL IV PRN (14:30)
[2024-11-27] MEDS: ISOSORBIDE DINITRATE 20 MG TAB PO SCH (14:48)
[2024-11-27] MEDS: CALCIUM CARBONATE 500 MG CHEW U/D PO ONE (15:52)
[2024-11-27 15:53] VITALS: BP 120/64; TEMP 97.4; O2SAT 97
[2024-11-27] MEDS: hydrALAZINE 20MG/ML 1ML VIAL IV SCH (16:05)
[2024-11-27] MEDS: SENOKOT S TAB PO SCH (17:38)
[2024-11-27] MEDS: PERCOCET 5MG/325MG TAB PO ONE (18:23)
[2024-11-27 19:10] VITALS: BP 114/68; TEMP 97.8; O2SAT 95
[2024-11-27] MEDS: DICLOFENAC EPOLAMINE 1.3% PATCH TOP SCH (20:17)
[2024-11-27] MEDS: BACLOFEN 10 MG TAB PO PRN (20:18)
[2024-11-27 23:06] VITALS: BP 103/57; TEMP 97.5; O2SAT 95
[2024-11-28 03:08] VITALS: BP 101/56; TEMP 97.6; O2SAT 97
[2024-11-28 05:57] LABS: HEMATOCRIT 37.4 % (42.0-52.0); MEAN CORPUSCULAR HEMOGLOBIN 32.7 pg (27.0-33.0); MEAN CORPUSCULAR HGB CONC 34.8 g/dl (32.0-36.5); PLATELET COUNT, AUTOMATED 231 10^3/uL (150-450); RED BLOOD COUNT 3.98 10^6/uL (4.30-6.10)
[2024-11-28 06:37] LABS: BLOOD UREA NITROGEN 12 MG/DL (9-23); CALCIUM LEVEL 9.1 MG/DL (8.3-10.6); CARBON DIOXIDE LEVEL 29 MMOL/L (20-31); CHLORIDE LEVEL 101 MMOL/L (98-107); CHOLESTEROL LEVEL 201 MG/DL (<200); CHOLESTEROL RISK RATIO 5.66 (<5); CREATININE FOR GFR 0.88 MG/DL (0.70-1.30); GLOMERULAR FILTRATION RATE > 90.0 (>42); GLUCOSE, FASTING 95 MG/DL (74-106); HDL CHOLESTEROL 35.5 MG/DL (>40); LDL CHOLESTEROL 100.1 MG/DL (<100); NON-HDL-C 165.5 MG/DL; POTASSIUM SERUM 4.6 MMOL/L (3.5-5.1); SODIUM LEVEL 138 MMOL/L (136-145); TRIGLYCERIDES LEVEL 327 MG/DL (<150)
[2024-11-28] MEDS ORDERED: ASPI-255 PO (07:23)
[2024-11-28] MEDS ORDERED: ATOR80TA59 PO (07:25)
[2024-11-28] MEDS ORDERED: AMLO1TAB25 PO (07:25)
[2024-11-28] MEDS ORDERED: BACL1TAB8 PO (07:27)
[2024-11-28] MEDS ORDERED: DICL1PAT6 TOP (07:27)
[2024-11-28 07:28] VITALS: BP 145/70; TEMP 97.3; O2SAT 97
[2024-11-28] MEDS ORDERED: ISOS10TA3 PO (07:29)
[2024-11-28] MEDS: ASPIRIN 81MG CHEW TABLET PO ONE (10:03)
[2024-11-28] MEDS: ATORVASTATIN 20 MG TAB PO SCH (10:04)
[2024-11-28 10:06] VITALS: BP 144/88
[2024-11-28] MEDS: ENOXAPARIN 40MG/0.4ML SYRINGE (J1650 PER 10MG) SC SCH (10:06)
== END 2024-11-28 11:35 | disposition home or self-care (01) ==
LOC: M ED 10:42 → UNDOADMOB 10:43 → M ED INP 10:43 → M PCU 14:03 → M ED INP 14:03 → UNDODISOB 11-28 11:35
PROVIDERS: ADMIT General Practice; ATTEND General Practice
DX: G45.9 Transient cerebral ischemic attack, unspecified (principal); R47.01 Aphasia; R20.0 Anesthesia of skin; M51.26 Other intervertebral disc displacement, lumbar region; G89.29 Other chronic pain; I16.0 Hypertensive urgency; E87.1 Hypo-osmolality and hyponatremia; E78.5 Hyperlipidemia, unspecified; Z85.46 Personal history of malignant neoplasm of prostate; Z90.79 Acquired absence of other genital organ(s); Z92.3 Personal history of irradiation; K51.90 Ulcerative colitis, unspecified, without complications; Z98.890 Other specified postprocedural states; Z90.49 Acquired absence of other specified parts of digestive tract; Z80.3 Family history of malignant neoplasm of breast; Z80.0 Family history of malignant neoplasm of digestive organs; Z88.1 Allergy status to other antibiotic agents; Z79.899 Other long term (current) drug therapy; Z79.82 Long term (current) use of aspirin
CPT/HCPCS: 36415; 70450; 70496; 70498; 70551; 71045; 72148; 73502; 80047; 80048; 80061; 85025; 85027; 85610; 85730; 92610; 93005; 93041; 94760; 96372; 97161; 97165; 99285; G0378; J1650; Q9967

== ENCOUNTER → 2025-02-26 | Outpatient (CLI) | payer MEDICARE, BC ==
[~2025-02-26] MED LIST changes: +ATOR80TA59 PO; +BACL10TA2 PO; +BACL1TAB8 PO; +DICL1PAT6 TOP; +ISOS10TA3 PO; +LISI40TA10 PO; -LISI40TA4 PO; +MULTTAB61 PO
[2025-02-26 10:07] LABS: BASO # 0.1 10^3/uL (0.0-0.2); BASO % 0.7 % (0.0-1.0); EOS # 0.4 10^3/uL (0.0-0.5); EOS % 5.6 % (0.0-3.0); LYMPH # 3.5 10^3/uL (1.5-5.0); LYMPH % 48.1 % (24.0-44.0); MONO # 0.5 10^3/uL (0.0-0.8); MONO % 7.5 % (2.0-8.0); NEUTROPHILS # 2.7 10^3/uL (1.5-8.5); NEUTROPHILS % 37.7 % (36.0-66.0); PLATELET COUNT, AUTOMATED 252 10^3/uL (150-450)
[2025-02-26 10:55] LABS: ALT/SGPT 25 U/L (7.0-40); AST/SGOT 24 U/L (<34); CALCIUM LEVEL 8.9 MG/DL (8.3-10.6); CARBON DIOXIDE LEVEL 27 MMOL/L (20-31); CHLORIDE LEVEL 99 MMOL/L (98-107); CREATININE FOR GFR 0.85 MG/DL (0.70-1.30); GLOMERULAR FILTRATION RATE > 90.0 (>42); POTASSIUM SERUM 4.5 MMOL/L (3.5-5.1); PROSTATIC SPECIFIC AG MONITOR 1.16 NG/ML (< 4.00); SODIUM LEVEL 137 MMOL/L (136-145)
[2025-02-26 10:57] LABS: TESTOSTERONE 521 NG/DL (241-827)
== END ==
LOC: M LAB 08:27
PROVIDERS: ATTEND Urology
DX: C61 Malignant neoplasm of prostate (principal)

== ENCOUNTER 2025-04-18 06:49 | Emergency (ER) | payer MEDICARE, BC ==
[~2025-04-18] VITALS: Ht 180.3 cm; Wt 89.1 kg
[2025-04-18 08:50] VITALS: BP 177/88
[2025-04-18] MEDS: MORPHINE 4 MG/ML 1 ML VIAL IV PRN (08:50)
[2025-04-18 09:19] LABS: CALCIUM LEVEL 9.1 MG/DL (8.3-10.6); CARBON DIOXIDE LEVEL 28 MMOL/L (20-31); CHLORIDE LEVEL 97 MMOL/L (98-107); CREATININE FOR GFR 0.88 MG/DL (0.70-1.30); GLOMERULAR FILTRATION RATE > 90.0 (>42); POTASSIUM SERUM 4.6 MMOL/L (3.5-5.1); SODIUM LEVEL 134 MMOL/L (136-145)
[2025-04-18] MEDS: KETOROLAC 30 MG/ML 1 ML VIAL IV ONE (10:00)
[2025-04-18] MEDS: ACETAMINOPHEN *IV* 1,000 MG in IV 1 EA IV ONE (10:00)
[2025-04-18 10:45] VITALS: BP 134/77
[2025-04-18 10:49] VITALS: TEMP 97.3; O2SAT 98
== END 2025-04-18 10:59 | disposition home or self-care (01) ==
LOC: M ED 06:49
DX: R51.9 Headache, unspecified (principal); I10 Essential (primary) hypertension; I44.0 Atrioventricular block, first degree; I45.10 Unspecified right bundle-branch block; I25.2 Old myocardial infarction; K50.90 Crohn's disease, unspecified, without complications; C61 Malignant neoplasm of prostate; Z88.1 Allergy status to other antibiotic agents; Z79.1 Long term (current) use of non-steroidal anti-inflammatories (NSAID); Z79.2 Long term (current) use of antibiotics; Z79.899 Other long term (current) drug therapy; Z79.810 Long term (current) use of selective estrogen receptor modulators (SERMs)
CPT/HCPCS: 70450; 80048; 93005; 96365; 96375; 99284; J0131; J1885; J2765